=== PATIENT | female | born 1940 | race Caucasian/White ===

== ENCOUNTER 2017-04-10 10:36 | Day surgery (SDC) | payer MEDICARE ==
[2017-04-10] MEDS ORDERED: Sodium Chloride 0.9% 20 ML ONE (11:07)
[2017-04-10] MEDS ORDERED: Acetaminophen 325 MG TAB PO SCH (11:15)
[2017-04-10 17:50] VITALS: BP 138/65; TEMP 97.7
== END 2017-04-10 17:50 | disposition home or self-care (01) ==
LOC: ONC/OP 10:36
PROVIDERS: ATTEND Internal Medicine Gastroenterology
PROC: 30233N1 Transfusion of Nonautologous Red Blood Cells into Peripheral Vein, Percutaneous Approach (ICD-10-PCS; principal; 2017-04-10)
DX: D50.9 Iron deficiency anemia, unspecified (principal); I25.10 Atherosclerotic heart disease of native coronary artery without angina pectoris; I10 Essential (primary) hypertension; E11.9 Type 2 diabetes mellitus without complications; I48.91 Unspecified atrial fibrillation; Z88.5 Allergy status to narcotic agent; Z98.890 Other specified postprocedural states
CPT/HCPCS: 36415; 36430; 86850; 86900; 86901; A4216; P9016

== ENCOUNTER 2017-04-15 08:38 | Day surgery (SDC) | payer MEDICARE ==
[2017-04-14 12:10] VITALS: BMI 34.3
[2017-04-15 10:24] LABS: #Eosinphils 0.1 thou/uL (0.0-0.7); #Lymphocytes 1.6 thou/uL (1.20-3.40); #Monocytes 0.5 thou/uL (0.11-0.59); %Basophils 0.4 % (0.0-1.0); %Eosinophils 2.2 % (0.0-10.0); %Lymphocytes 25.7 % (21.0-51.0); %Monocytes 8.4 % (0.0-10.0); %Neutrophils 63.4 % (42.0-75.0); Hemoglobin 9.3 g/dL (12.0-16.0); Mean Corpuscular HGB CONC 30.5 g/dL (32.0-36.0); Mean Corpuscular Hemoglobin 24.6 pg (27.0-31.0); Mean Corpuscular Volume 80.6 fl (81.0-99.0); Mean Platelet Volume 7.6 fL (7.4-10.4); Platelet Count 279 thou/uL (130-400); RBC Distribution Width 16.8 % (11.5-14.5); Red Blood Cell (RBC) Count 3.79 mill/uL (4.20-5.40); White Blood Cell (WBC) Count 6.3 thou/uL (4.8-10.8)
[2017-04-15] MEDS ORDERED: Fentanyl 100 MCG/2 ML VIAL ONE (10:44)
--- NOTE | 2017-04-15 14:09 | OP ---
DATE OF PROCEDURE: 04/15/2017 SURGEON: Denis Eller M.D. PROCEDURE: Esophagogastroduodenoscopy and colonoscopy. PREOPERATIVE DIAGNOSES: 1. Iron deficiency anemia, severe, requiring transfusion last week. 2. Prior history of iron deficiency anemia with prior history of gastritis, prior history of a sessi le serrated adenoma of the colon 4 years ago. 3. Chronic Xarelto use. 4. Hemoglobin before procedure was 9.6 up from 6 last week. POSTOPERATIVE DIAGNOSES: 1. Mild antral gastritis with erosions. No active bleeding in the antrum of stomach, biopsied. 2. Colonoscopy was normal except for a large part of the colon which was herniated through the left lower quadrant incisional hernia making the examination difficult. ANESTHESIA: TIVA. RECOMMENDATIONS: 1. Iron supplementation daily. 2. Will refer to Dr. Sarah Beth Frazier for IV iron, which she has had in the past. 3. Lifelong PPI therapy. 4. Can resume anticoagulation. 5. Follow up in my office in 3 weeks. 6. Repeat colonoscopy in 5 years with regard to history of previous sessile serrated adenoma. ANESTHESIA: TIVA. PROCEDURE IN DETAIL: After the patient was informed of the risks, benefits, possible complications o f endoscopy including perforation, bleeding, reactions to medication and aspiration, informed consent was obtained. The patient brought to endoscopy suite where she was sedated in gradual fashion. Onc e she was comfortable, a bite block was placed in incisural orifice. The endoscope was advanced thro ugh the esophagus, stomach and to the second and third portion of the duodenum and slowly removed. T he duodenum was normal to second and third portions. The bulb was normal. The antrum was notable fo r 2 erosions in the antrum probably 3-4 mm in size, nonbleeding. Biopsies were taken and submitted t o Pathology. Retroflexed views revealed no proximal stomach ulcers, there was no active bleeding in the stomach. The esophagus and GE junction were normal. The scope was removed. The patient was turned in the room. A rectal examination was performed which revealed no abnormaliti es. The endoscope was advanced through anal canal, through the colon to the cecum which was identifi ed by ileocecal valve and appendiceal orifice. The procedure was complicated by the fact that she muhammad s got a significant amount of left colon and sigmoid herniated through the abdominal wall and this co uld not be reduced. The scope had to be advanced to the hernia sac and then the colon explored throu gh that and the endoscope advanced back in the abdominal cavity. No polyps or lesions were seen on t his examination. There was some diverticulosis coli in left colon. Retroflexed views in the rectum were normal. The scope was removed. The patient tolerated the procedure well with no complications.
[2017-04-15] MEDS ORDERED: Propofol 200 MG/20 ML VIAL ONE (15:20)
[2017-04-15] MEDS ORDERED: Lidocaine 1% PF 5 ML VIAL ONE (15:20)
== END 2017-04-15 13:10 | disposition home or self-care (01) ==
LOC: SDC 08:38
PROVIDERS: ATTEND Internal Medicine Gastroenterology
PROC: 0DJD8ZZ Inspection of Lower Intestinal Tract, Via Natural or Artificial Opening Endoscopic (ICD-10-PCS; principal; 2017-04-15)
PROC: 0DB68ZX Excision of Stomach, Via Natural or Artificial Opening Endoscopic, Diagnostic (ICD-10-PCS; 2017-04-15)
DX: Z12.11 Encounter for screening for malignant neoplasm of colon (principal); K29.50 Unspecified chronic gastritis without bleeding; D50.0 Iron deficiency anemia secondary to blood loss (chronic); K43.2 Incisional hernia without obstruction or gangrene; Z88.5 Allergy status to narcotic agent; Z79.01 Long term (current) use of anticoagulants; Z86.010 Personal history of colon polyps; Z98.890 Other specified postprocedural states
CPT/HCPCS: 43239; 85025; 88305; 88312; G0105; 36415; J2001; J2704; J3010

== ENCOUNTER 2017-07-27 08:42 | Outpatient (CLI) | payer MEDICARE ==
[~2017-07-27 08:42] MED LIST: Iopamidol 370 76% 100 ML VIAL ONE
[2017-07-27 09:46] LABS: Estimated GFR-MDRD - POC Greater than 90
--- NOTE | 2017-07-27 11:17 | CT ---
CORONARY MAPPING FOR ELECTROPHYSIOLOGY STUDY CONTRAST ENHANCED CTA CHEST: Two-D and 3D reconstructed images performed on an independent 3D work station. Images demonstrate coronary artery calcifications. There is calcification of the mitral annulus. No definite evidence of pulmonary parenchymal lesions seen. The thoracic aorta demonstrates no evidence of aneurysms or dissections. No definite evidence of edward ling defect seen in the pulmonary arteries. IMPRESSION: Coronary artery calcifications. POS: JOSE
== END 2017-07-27 08:43 | disposition home or self-care (01) ==
LOC: CT 08:42
PROVIDERS: ATTEND Internal Medicine Cardiovascular Disease
DX: I25.10 Atherosclerotic heart disease of native coronary artery without angina pectoris (principal); I48.1 Persistent atrial fibrillation
CPT/HCPCS: 71275; 82565

== ENCOUNTER 2017-09-24 10:55 | Outpatient (CLI) | payer MEDICARE ==
[2017-09-24 12:31] LABS: Hemoglobin 11.1 g/dL (12.0-16.0); Mean Corpuscular HGB CONC 33.9 g/dL (32.0-36.0); Mean Corpuscular Hemoglobin 31.9 pg (27.0-31.0); Mean Corpuscular Volume 94.2 fL (78.0-98.0); Mean Platelet Volume 6.8 fL (7.4-10.4); Platelet Count 244 thou/uL (130-400); RBC Distribution Width 18.4 % (11.5-14.5); Red Blood Cell (RBC) Count 3.47 mill/uL (4.20-5.40); White Blood Cell (WBC) Count 6.2 thou/uL (4.8-10.8)
[2017-09-24 12:48] LABS: INR-International Normal Ratio 1.2; PTT 31.9 SEC (22.9-36.1)
[2017-09-24 12:57] LABS: ALT (SGPT) 12 U/L (8-55); AST (SGOT) 16 U/L (5-34); Albumin 4.1 g/dL (3.4-4.8); Alkaline Phosphatase 57 U/L (40-150); Anion Gap 14 mmol/L (10-20); BUN (Urea Nitrogen) 12 mg/dL (9.8-20.1); Bilirubin, Total 0.4 mg/dL (0.2-1.2); Calc. Creatinine Clearance 0 mL/min (70-130); Calcium 8.9 mg/dL (7.8-10.44); Carbon Dioxide 25 mmol/L (23-31); Chloride 103 mmol/L (98-107); Estimated GFR-MDRD 63; Globulin 3.2 g/dL (2.4-3.5); Glucose 127 mg/dL (83-110); Potassium 3.9 mmol/L (3.5-5.1); Protein, Total 7.3 g/dL (6.0-8.3); Sodium 138 mmol/L (136-145)
== END 2017-09-24 10:56 | disposition home or self-care (01) ==
LOC: LABBT 10:55
PROVIDERS: ATTEND Internal Medicine Cardiovascular Disease
DX: Z01.818 Encounter for other preprocedural examination (principal); R06.02 Shortness of breath
CPT/HCPCS: 80053; 85027; 85610; 85730; 93005; 93010

== ENCOUNTER → 2017-09-28 | Day surgery (SDC) | payer MEDICARE ==
[2017-09-24 11:10] VITALS: BMI 33.6
[~2017-09-28] MED LIST changes: +Diazepam 5 MG TAB ONE; +Lidocaine 1% (PF) 30 ML VIAL ONE; +traMADol HCl 50 MG TAB ONE
[2017-09-28 06:55] LABS: Cardiac Risk 4.7 (Less than 4.5)
== END ==
LOC: CCL 05:52
PROVIDERS: ATTEND Internal Medicine Cardiovascular Disease
PROC: 4A023N7 Measurement of Cardiac Sampling and Pressure, Left Heart, Percutaneous Approach (ICD-10-PCS; principal; 2017-09-28)
PROC: B2111ZZ Fluoroscopy of Multiple Coronary Arteries using Low Osmolar Contrast (ICD-10-PCS; 2017-09-28)
DX: I25.10 Atherosclerotic heart disease of native coronary artery without angina pectoris (principal); I48.91 Unspecified atrial fibrillation; E11.9 Type 2 diabetes mellitus without complications; I48.92 Unspecified atrial flutter; Z79.84 Long term (current) use of oral hypoglycemic drugs; Z79.01 Long term (current) use of anticoagulants; Z79.899 Other long term (current) drug therapy; Z88.5 Allergy status to narcotic agent
CPT/HCPCS: 76942; 80061; 82962; 93458; C1769; 36415; 36416; J1644; J2001

== ENCOUNTER 2017-10-04 09:54 | Inpatient (IN) | payer MEDICARE ==
[2017-10-04 10:18] LABS: #Lymphocytes 1.5 thou/uL (1.20-3.40); #Neutrophils 8.3 thou/uL (1.40-6.50); %Eosinophils 0.1 % (0.0-10.0); %Lymphocytes 14.2 % (21.0-51.0); %Monocytes 9.1 % (0.0-10.0); %Neutrophils 76.7 % (42.0-75.0); Hemoglobin 11.6 g/dL (12.0-16.0); Mean Corpuscular HGB CONC 32.9 g/dL (32.0-36.0); Mean Corpuscular Hemoglobin 31.2 pg (27.0-31.0); Mean Corpuscular Volume 94.9 fL (78.0-98.0); Mean Platelet Volume 6.7 fL (7.4-10.4); Platelet Count 244 thou/uL (130-400); Red Blood Cell (RBC) Count 3.73 mill/uL (4.20-5.40); White Blood Cell (WBC) Count 10.9 thou/uL (4.8-10.8)
[2017-10-04 10:34] LABS: INR-International Normal Ratio 1.2; Prothrombin Time 15.3 SEC (12.0-14.7)
[2017-10-04 10:44] LABS: ALT (SGPT) 11 U/L (8-55); AST (SGOT) 28 U/L (5-34); Albumin 3.9 g/dL (3.4-4.8); Alkaline Phosphatase 60 U/L (40-150); Anion Gap 18 mmol/L (10-20); BUN (Urea Nitrogen) 7 mg/dL (9.8-20.1); Bilirubin, Total 0.5 mg/dL (0.2-1.2); Calc. Creatinine Clearance 0 mL/min (70-130); Calcium 9.1 mg/dL (7.8-10.44); Carbon Dioxide 21 mmol/L (23-31); Chloride 99 mmol/L (98-107); Estimated GFR-MDRD 72; Glucose 168 mg/dL (83-110); Potassium 4.6 mmol/L (3.5-5.1); Protein, Total 7.9 g/dL (6.0-8.3); Sodium 133 mmol/L (136-145)
[2017-10-04] MEDS ORDERED: SODIUM CHLORIDE 0.9% IVPB SCH (10:45)
[2017-10-04] MEDS ORDERED: DILTIAZEM IVPB SCH (10:45)
[2017-10-04 10:49] LABS: CKMB 0.5 ng/mL (0-6.6); Troponin I Less than 0.010 ng/mL (< 0.028)
--- NOTE | 2017-10-04 12:21 | RAD ---
PORTABLE AP CHEST XRAY: DATE: 10/04/17. HISTORY: Chest pain. Chills, headache. COMPARISON: 06/27/16. FINDINGS: Cardiac silhouette is magnified by projection and is stable in size. The pulmonary vasculature is wi thin normal limits. There is increased density overlying the left lateral lung base probably related to overlying soft tissue density and atelectasis. The lungs are otherwise clear. Surgical clips ov erlie the right chest and right axillary region similar to the prior study. Vascular calcification i s seen in the thoracic aorta. There has been no interval change from the prior exam. IMPRESSION: Increased density again present left lateral lung base which may be related to scarring given stabili ty since the prior exam. There is otherwise no acute cardiopulmonary process. POS: JOSE
[2017-10-04] MEDS ORDERED: Dextrose 50% Abboject 50 ML SYRINGE SLOW IVP PRN (14:02)
[2017-10-04] MEDS ORDERED: Dextrose 5% in Water 1,000 ML IV PRN (14:02)
[2017-10-04] MEDS ORDERED: traMADol HCl 50 MG TAB PO PRN (14:15)
--- NOTE | 2017-10-04 14:16 | PDOC.EVN ---
Event Note - Event Note Event Note: h&p [id number] dictated
[2017-10-04 14:51] LABS: Hemoglobin A1c 5.3 % (4.0-6.0)
[2017-10-04 15:09] LABS: Troponin I 0.016 ng/mL (< 0.028)
--- NOTE | 2017-10-04 15:57 | HP ---
PRIMARY CARE PHYSICIAN: Dr. Rebeca Puga. TOBACCO WEIGHER: Dr. Loco San. CHIEF COMPLAINT: Headache. HISTORY OF PRESENT ILLNESS: This is a 77-year-old female with a known history of atrial fibrillation , status post ablation on Xarelto, coronary artery disease, hypertension, type 2 diabetes, hypothyroi dism, who presented with a chief complaint of headache. It appears that the patient had an acute onset of headache some point yesterday afternoon, after whic h she sat down in her chair to rest and see if it would go away. Subsequently, the patient apparentl y does not have any recollection of the events later on through the afternoon evening and into the mo rning when she finally woke up. Patient states this is highly atypical for her as she is easily arou sed by loud sounds. Patient had subsequently texted her son and the patient's wgwclfhg-[id number] is cur rently with her at bedside after having brought her into the Emergency Department. Both the patient and her [id number] currently indicate that her mental status is grossly at her baseline. The pa bryan is endorsing a degree of word finding difficulty that she says is not different from her baseli ne and this is supported by the patient's cdulgylh-ri-bzf at bedside as well. REVIEW OF SYSTEMS: As per HPI, CONSTITUTIONAL: The patient thought that she may have had a fever earlier today, but upon checking h er temperature at home, did not have a fever. No overt chills. No significant weight loss or gain o clarissa the last few months. HEENT: The patient describes yesterday evening through this morning having a headache, which is desc ribed as a heavy dull pressure on the top of her head. At the time of my evaluation, this headache i s currently resolved. Denies any accompanying dizziness, lightheadedness, or vision changes. CARDIOVASCULAR: Denies any chest pain, chest pressure. The patient has been having shortness of ave ath over the last several weeks, for which she underwent a left heart catheterization that approximat chiquis a week ago without any stent placement noted. Patient denies any sensation of palpitations and t he patient states that she has never had any sensation of palpitations even when she was told that he r heart rate was actively elevated. RESPIRATORY: Denies any recent upper respiratory infection. Denies any issues with congestion, coug h. GASTROINTESTINAL: Denies any nausea, vomiting, abdominal pain, diarrhea, or constipation. The patie nt recalls her last meal as perhaps yesterday for lunch before onset of the headache. MUSCULOSKELETAL: Denies any new myalgias or arthralgias. Does have some chronic bilateral lower ext remity swelling, which she states is not different from her usual. Remainder of review of systems is otherwise negative. PAST MEDICAL HISTORY: As per above, 1. Type 2 diabetes. 2. Hypertension. 3. Atrial fibrillation. 4. Chronic bilateral lower extremity edema. 5. Prior history of atrial flutter. PAST SURGICAL HISTORY: 1. Status post right mastectomy with breast reduction. 2. Status post carpal tunnel release. 3. Status post hernia repair. 4. Status post cataract extraction. 5. Status post Watchman procedure on 04/2017. FAMILY HISTORY: Denies any family history of palpitations, atrial fibrillation or thyroid disease. HOME MEDICATIONS: Please see the EMR for full details. The patient currently has an unconfirmed lis t in place. The patient states that medication was changed after her left heart catheterization, but she does not recall what medication that was. The patient's current unconfirmed regimen list includ es the following, quinine sulfate 324 mg p.o. at bedtime, metformin 2000 mg p.o. at bedtime, timolol 1 drop each eye b.i.d., rivaroxaban 20 mg p.o. at bedtime, propafenone 325 mg p.o. b.i.d., polyethyle ne glycol 17 grams p.o. daily, oxybutynin 5 mg p.o. at bedtime, omeprazole 1 tab p.o. daily; unknown strength, multivitamin 1 tab p.o. daily, metoprolol succinate 100 mg p.o. at bedtime, Levothyroxine 1 12 mcg p.o. daily, icosapent 2 tabs p.o. b.i.d., glimepiride 4 mg p.o. b.i.d., Dorzolamide HCL/timolo l eye drop b.i.d. each eye, cyanocobalamin 1000 mcg p.o. daily, and acetaminophen 1000 mg p.o. q.6 ho urs p.r.n. ALLERGIES: Include CODEINE, which causes nausea and vomiting. PHYSICAL EXAMINATION: GENERAL: The patient is awake, alert, appropriate, lying in the hospital bed. She is conversant and appears to be a reasonable historian, although she is having some word finding difficulty. She has reasonable recall of her own past medical history. HEENT: Normocephalic, atraumatic. Equal ocular motions are intact and moist mucous membranes. CARDIOVASCULAR: S1 and S2, regular and tachycardic. Pulses 2+ bilateral upper extremities, 1+ bilat eral pitting pedal edema. RESPIRATORY: Reasonable air movement. No conversational dyspnea. No wheezes, no rales, no rhonchi. Clear to auscultation bilaterally, otherwise. ABDOMEN: Large, positive bowel sounds, soft, grossly nontender to palpation. MUSCULOSKELETAL: Moving all 4 extremities independently. LABORATORY DATA AND IMAGING: On 10/04/2017, chest x-ray impression "increased density again present left lateral lung base which may be related to scarring given stability since the prior exam." There is otherwise no acute cardiopulmonary process. Chest x-ray was seen and evaluated by myself and Dontrell espinoza with the read. WBC is 10.9, hemoglobin 11.6, hematocrit 35.4, platelets 244. PT 15.3, INR 1.2. Sodium 133, potassi um 4.6, chloride 99, bicarbonate 21, BUN 7, creatinine 0.78, glucose 168, calcium 9.1, total bilirubi n 0.5, AST 28, ALT 11, alkaline phosphatase 60. Troponin initial less than 0.1. BNP natriuretic pep tide 318.7, total protein 7.9, albumin 3.9. ASSESSMENT AND PLAN: This is a 77-year-old female initially presented with a chief complaint of head ache. 1. Headache. Patient's headache is currently resolved. It is unclear the precipitating etiology. The patient does not give a known history of recurrent headaches. We will continue to symptomaticall y manage and closely monitor the patient's neurological status. 2. Atrial fibrillation with rapid ventricular response [facility] The patient is on a multitude of antiarrhythmic agents for known history of this as well. We britt l consult the patient's alcohol law enforcement agent, given the complexity of her dysrhythmia. The patient is alread y on Xarelto, continue the medication. The patient was started on diltiazem bolus in the Emergency D epartment and currently on a drip. We will also check the patient's TSH and hemoglobin A1c as well. 3. Coronary artery disease. See discussion above. We will continue medical management as well once the patient's home medications are reconciled. 4. Type 2 diabetes. We will continue the patient on home regimen. We will also check her glucose f ingersticks as well. 5. Diet: Cardiac. 6. Activity: As tolerated. 7. Deep venous thrombosis prophylaxis: The patient is already on Eliquis. The patient's code status was discussed with her and her [id number] at bedside. If the patient is unable to make her own medical decisions, she would like us to contact her son, Justin. The patient endorses being FULL CODE at this point in time.
[2017-10-04 16:59] VITALS: BMI 34.0
[2017-10-04 17:12] LABS: Troponin I 0.015 ng/mL (< 0.028)
[2017-10-04] MEDS: Famotidine/PF 20 mg/2ml Vial SLOW IVP SCH (20:15)
[2017-10-05] MEDS: Diltiazem HCl 125 MG, Admixture Fee 1 EACH in Sodium Chloride 0.9% 100 ML IVPB SCH ×2 (00:36→14:56)
[2017-10-05 05:52] LABS: #Lymphocytes 1.9 thou/uL (1.20-3.40); #Monocytes 1.2 thou/uL (0.11-0.59); #Neutrophils 6.1 thou/uL (1.40-6.50); %Basophils 0.2 % (0.0-1.0); %Eosinophils 0.2 % (0.0-10.0); %Lymphocytes 20.8 % (21.0-51.0); %Monocytes 12.5 % (0.0-10.0); %Neutrophils 66.3 % (42.0-75.0); Hemoglobin 10.5 g/dL (12.0-16.0); Mean Corpuscular Hemoglobin 32.2 pg (27.0-31.0); Mean Corpuscular Volume 94.7 fL (78.0-98.0); Mean Platelet Volume 7.2 fL (7.4-10.4); Platelet Count 221 thou/uL (130-400); RBC Distribution Width 17.8 % (11.5-14.5); Red Blood Cell (RBC) Count 3.27 mill/uL (4.20-5.40); White Blood Cell (WBC) Count 9.3 thou/uL (4.8-10.8)
[2017-10-05 05:55] LABS: Anion Gap 13 mmol/L (10-20); BUN (Urea Nitrogen) 7 mg/dL (9.8-20.1); Calc. Creatinine Clearance 254 mL/min (70-130); Calcium 8.6 mg/dL (7.8-10.44); Carbon Dioxide 25 mmol/L (23-31); Chloride 101 mmol/L (98-107); Estimated GFR-MDRD 88; Glucose 149 mg/dL (83-110); Potassium 3.7 mmol/L (3.5-5.1); Sodium 135 mmol/L (136-145)
[2017-10-05] MEDS ORDERED: PROPOFOL 0 ML ONE (12:51)
[2017-10-05] MEDS: Famotidine/PF 20 mg/2ml Vial SLOW IVP SCH ×2 (13:52→20:57)
--- NOTE | 2017-10-05 14:37 | CON ---
DATE OF CONSULTATION: 10/05/2017 ELECTROPHYSIOLOGY CONSULTATION REPORT PHYSICIAN: Dr. San HISTORY OF PRESENT ILLNESS: I am seeing Ms. Chaney at our [facility] as a electrophysiology consult and her problems are: 1. Recurrent atrial arrhythmias. A. History of cavotricuspid isthmus ablation by Dr. Thorpe on 11/14/2015. B. ____ cardioversion on propafenone for sinus rhythm maintenance in 02/2016. C. Hence detected coronary artery disease on left heart catheterization in 09/27/2017, patient was s witched to Multaq, now with recurrence. 2. Severe anemia and GI bleed requiring transfusion in the past, prompting a Watchman device placeme nt on 08/28/2017. 3. Coronary risk factors including hyperlipidemia, hypertension, type 2 diabetes, elevated BMI. 4. Hypothyroidism, replacement. 5. History of breast cancer status post reduction and reconstruction surgeries. ALLERGIES: CODEINE. MEDICATIONS AT HOME: Included oxybutynin, levothyroxine, metformin, metoprolol succinate, glimepirid e, rivaroxaban, ezetimibe and dronedarone 400 mg twice a day. SUBJECTIVE: Ms. Chaney is here with recurrent palpitation. She underwent a Watchman device placemen t about 5 weeks ago in [place] by Dr. Coffey. She has been chronically treated with antiarrhythmic to suppress her atrial fibrillation, but now they appear propafenone was discontinued to detect madison nary artery disease and she is switched to Multaq, but this does not seem to be satisfactory to suppr ess her atrial fibrillation. She was admitted with atrial fibrillation with rapid rates associated w ith dyspnea and shortness of breath for a couple of weeks. She denies angina at this point. She was treated with diltiazem. She has some headaches. Also had some fever, but no other signs of infecti on identified. REVIEW OF SYSTEMS: Rest of 12-point system otherwise unremarkable with no acute signs of strokes, no new bleeding, no fever, no CHF like symptoms. No major abdominal discomfort. PAST MEDICAL HISTORY: As above. SOCIAL HISTORY: Patient denies smoking, ETOH or drug abuse. FAMILY HISTORY: Significant for palpitations, atrial fibrillation, thyroid disease. PAST SURGICAL HISTORY: Significant for right mastectomy and breast reduction, carpal tunnel release, hernia repair, cataract extraction, Watchman procedure in 04/2017. OBJECTIVE DATA: VITAL SIGNS: Blood pressure is initially 113/59, heart rate 103, respiration 16, temperature 99.9 de grees Fahrenheit. GENERAL: She is alert and oriented woman with elevated BMI, in no apparent distress. NECK: Supple. Jugular veins not distended. CHEST: Coarse without major crackles. CARDIAC: Heart sounds are irregularly irregular. S1, S2, variable. No murmur or gallop. ABDOMEN: Benign. Bowel sounds positive. EXTREMITIES: Lower extremities without edema, clubbing or cyanosis. DATABASE: The EKGs reviewed revealing atrial fibrillation, ____ QRS. LABORATORY DATA: White count 9.3 today, hemoglobin 10.5, platelet count is 221. INR 1.2. Sodium 13 5, potassium 3.7, BUN 7, creatinine 0.65. The troponins are negative, 0.016 and 0.015 consecutively. ASSESSMENT AND PLAN: Ms. Chaney is a pleasant 77-year-old woman with history of atrial arrhythmias. She did have cavotricuspid isthmus ablation a number of years ago, but had recurrent atrial arrhythm ia, which were mostly satisfactory suppressed with oral antiarrhythmic agents, propafenone initially. She had to be switched to Multaq due to her significant coronary artery disease this September, but is n ot satisfactory at this time to suppress her atrial fibrillation. Her rates are moderately controlle d only. Also, complicating issues the recent Watchman device placement for which she is still in the initial phase of Xarelto for anticoagulation. Our plan is at this point: 1. I think it will be reasonable to repeat a JENNIFER, anyway schedule within a week. If the Watchman de vice seating is adequate, she could be considered cardioverted times as she is after a month of the W atchman device placement. If she maintains rhythm on Multaq, this could be reasonable to continue on this drug. Alternatives to that would be though sotalol versus amiodarone. Also, she could be considered for a pulmonary venous isolation procedure as an outpatient after matur ation of her Watchman device. In the meantime, rhythm or rate control will be pursued as above. I discussed the JENNIFER guided cardioversion procedure with her. She understands she is willing to proce ed. We will schedule her for near date. Discussed with Dr. San. Thank you again for allowing me to participate in the care of this patient.
--- NOTE | 2017-10-05 14:38 | OP ---
PROCEDURE: Synchronized cardioversion. Patient was consented for the procedure. Please see a previous note. Propofol was used for conscious sedation. Unsuccessful synchronized cardioversion was performed at 1 50, 200, 250, and 300 joules. IMPRESSION: Unsuccessful synchronized cardioversion.
[2017-10-05] MEDS ORDERED: PROPOFOL 200 MG/20 ML VIAL ONE (14:52)
[2017-10-05] MEDS ORDERED: Sodium Chloride 0.9% 1,000 ML IV SCH (15:30)
--- NOTE | 2017-10-05 18:13 | PDOC.PN ---
- Subjective Encounter Start Date: 10/05/17 Encounter Start Time: 18:11 Subjective: nsg notes rev, crystal ovn, pt had failed cardioversions earlier today - Objective I&O: 10/04/17 10/05/17 10/06/17 06:59 06:59 06:59 Intake Total 510 Balance 510 Result Diagrams: 10/05/17 05:19 10/05/17 05:19 Additional Labs: Accuchecks 10/05/17 16:46 POC Glucose 151 H Phys Exam - Physical Examination Constitutional: NAD lying in hospital bed HEENT: moist MMs, sclera anicteric Respiratory: no wheezing, no rales, no rhonchi, clear to auscultation bilateral Cardiovascular: RRR, no significant murmur, no rub Gastrointestinal: soft, non-tender, positive bowel sounds Dx/Plan - Plan 1. Headache. Patient's headache is currently resolved. Continue to monitor. Patient thinks it may be related to her multaq 2. Atrial fibrillation with rapid ventricular response. Apprec cardiology c/s. Continue dilt gtt. 3. Coronary artery disease. Medical management. Hemodynamically stable. 4. Type 2 diabetes. We will continue the patient on home regimen. We will also check her glucose fingersticks as well. 5. Diet: Cardiac. 6. Activity: As tolerated. 7. Deep venous thrombosis prophylaxis: The patient is already on Eliquis. Review of Systems - Medications/Allergies Allergies/Adverse Reactions: Allergies Allergy/AdvReac Type Severity Reaction Status Date / Time codeine AdvReac Severe NAUSEA/VOMI Verified 09/24/17 11:21 TING Medications: Current Medications Acetaminophen (Tylenol) 650 mg PO Q4H PRN PRN Reason: Headache/Fever or Mild Pain Dextrose/Water (Dextrose 50%) 25 gm SLOW IVP PRN PRN PRN Reason: Hypoglycemia Ezetimibe (Zetia) 10 mg PO DAILY FARIDA Famotidine (Pepcid) 20 mg SLOW IVP Q12HR [facility] Last Admin: 10/05/17 13:52 Dose: Not Given Glucagon (Glucagon) 1 mg IM PRN PRN PRN Reason: Hypoglycemia Diltiazem HCl 125 mg/Miscellaneous Medication 1 each/ Sodium Chloride 125 mls @ 10 mls/hr IVPB INF FARIDA PRN Reason: Protocol Last Admin: 10/05/17 14:56 Dose: 125 mls Dextrose/Water (D5w) 1,000 mls @ 0 mls/hr IV .Q0M PRN; As Directed PRN Reason: Hypoglycemia Sodium Chloride (Normal Saline 0.9%) 1,000 mls @ 100 mls/hr IV .Q10H FARIDA Stop: 10/05/17 19:30 Last Admin: 10/05/17 15:49 Dose: 1,000 mls Insulin Human Regular (Humulin R) 0 units SC .MODERATE SLIDING SC PRN PRN Reason: Moderate Correctional Scale Levothyroxine Sodium (Synthroid) 125 mcg PO 0600 FARIDA Oxybutynin Chloride (Ditropan) 5 mg PO HS FARIDA Tramadol HCl (Ultram) 50 mg PO Q4H PRN PRN Reason: Moderate Pain (4-6)
[2017-10-05] MEDS: Rivaroxaban 10 MG TAB PO SCH (20:57)
[2017-10-05] MEDS: Oxybutynin 5 MG TAB PO SCH (20:57)
[2017-10-05] MEDS: Acetaminophen 325 MG TAB PO PRN (22:44)
[2017-10-06] MEDS: Diltiazem HCl 125 MG, Admixture Fee 1 EACH in Sodium Chloride 0.9% 100 ML IVPB SCH ×2 (03:14→16:37)
[2017-10-06] MEDS: Levothyroxine Sodium 125 MCG TAB PO SCH (03:26)
[2017-10-06 06:26] LABS: #Eosinphils 0.1 thou/uL (0.0-0.7); #Lymphocytes 1.5 thou/uL (1.20-3.40); #Monocytes 0.6 thou/uL (0.11-0.59); #Neutrophils 4.4 thou/uL (1.40-6.50); %Basophils 0.7 % (0.0-1.0); %Eosinophils 1.3 % (0.0-10.0); %Monocytes 8.9 % (0.0-10.0); %Neutrophils 66.1 % (42.0-75.0); Hemoglobin 12.4 g/dL (12.0-16.0); Mean Corpuscular HGB CONC 32.2 g/dL (32.0-36.0); Mean Corpuscular Hemoglobin 30.5 pg (27.0-31.0); Mean Corpuscular Volume 94.5 fL (78.0-98.0); Platelet Count 247 thou/uL (130-400); RBC Distribution Width 17.6 % (11.5-14.5); Red Blood Cell (RBC) Count 4.08 mill/uL (4.20-5.40); White Blood Cell (WBC) Count 6.7 thou/uL (4.8-10.8)
[2017-10-06 06:42] LABS: Anion Gap 13 mmol/L (10-20); BUN (Urea Nitrogen) 6 mg/dL (9.8-20.1); Calc. Creatinine Clearance 117 mL/min (70-130); Carbon Dioxide 27 mmol/L (23-31); Chloride 102 mmol/L (98-107); Estimated GFR-MDRD 90; Glucose 158 mg/dL (83-110); Potassium 3.3 mmol/L (3.5-5.1); Sodium 139 mmol/L (136-145)
[2017-10-06] MEDS: Insulin Regular 300 UNITS/3 ML VIAL SC PRN (06:43)
--- NOTE | 2017-10-06 07:37 | ECHO ---
CARDIOLOGY PROCEDURE NOTE: Date: 10/05/17 PREPROCEDURE DIAGNOSIS: Atrial fibrillation. POSTPROCEDURE DIAGNOSIS: Atrial fibrillation. PROCEDURE: JENNIFER and failed synchronized cardioversion. DESCRIPTION OF PROCEDURE: The patient was consented for the procedure. Prior to the procedure, I met with Ms. Chaney while in her room and we discussed JENNIFER with cardioversion. The risks include, but are not limited, damage to teeth, mouth, back of the throat, damage to esophagus requiring emergent surgery, and reaction to med ication. Risks of cardioversion include burning of skin, temporary cardioversion and need for repeat cardioversion in addition to a stroke. All questions were answered. Given the above, the patient agre ed to the above procedure. A JENNIFER was performed. The probe was placed in the esophagus successfully. FINDINGS: Watchman device had been placed 2 months prior. Watchman device was well visualized. There was no f low present noted into the left atrial appendage. IMPRESSION: Successful Watchman placement.
[2017-10-06] MEDS: Ezetimibe 10 MG TAB PO SCH (09:13)
[2017-10-06] MEDS: Famotidine/PF 20 mg/2ml Vial SLOW IVP SCH ×2 (09:18→21:34)
--- NOTE | 2017-10-06 14:13 | PDOC.PN ---
- Subjective Encounter Start Date: 10/06/17 Encounter Start Time: 07:20 - Objective MAR Reviewed: Yes Vital Signs & Weight: Vital Signs (12 hours) Temp Pulse Resp BP Pulse Ox 10/06/17 11:45 97.3 F L 60 18 140/64 97 10/06/17 07:55 98.1 F 76 18 10/06/17 07:49 98.1 F 76 18 104/55 L 95 10/06/17 03:15 97.9 F 78 18 131/63 94 L I&O: 10/05/17 10/06/17 10/07/17 06:59 06:59 06:59 Intake Total 1130 360 Output Total 1375 Balance -245 360 Result Diagrams: 10/06/17 05:45 10/06/17 05:45 Additional Labs: Accuchecks 10/06/17 10/06/17 10/05/17 10:55 06:21 20:42 POC Glucose 149 H 160 H 153 H 10/05/17 16:46 POC Glucose 151 H EKG Reviewed by me: Yes (Tele: afib with RVR) Phys Exam - Physical Examination Constitutional: NAD HEENT: moist MMs, sclera anicteric, oral pharynx no lesions, 2+ tonsils Neck: no nodes, no JVD, supple, full ROM Respiratory: no wheezing, no rales, no rhonchi, clear to auscultation bilateral Cardiovascular: no rub, irregular S1, S2 Gastrointestinal: soft, non-tender, no distention, positive bowel sounds Neurological: moves all 4 limbs Psychiatric: normal affect, A&O x 3 Dx/Plan (1) Atrial fibrillation with RVR Code(s): I48.91 - UNSPECIFIED ATRIAL FIBRILLATION Status: Acute Comment: on Cardizem drip, rate is controlled now (2) CAD (coronary artery disease) Code(s): I25.10 - ATHSCL HEART DISEASE OF [place] CORONARY ARTERY W/O ANG PCTRS Status: Chronic Qualifiers: Coronary Disease-Associated Artery/Lesion type: [place] artery [place] vs. transplanted heart: [place] heart Associated angina: without angina Qualified Code(s): I25.10 - Atherosclerotic heart disease of [place] coronary artery without angina pectoris Comment: stable (3) DM type 2 (diabetes mellitus, type 2) Status: Chronic Qualifiers: Diabetes mellitus skilled nursing insulin use: without oil heaterman use Diabetes mellitus complication status: with unspecified complications Qualified Code(s) : E11.8 - Type 2 diabetes mellitus with unspecified complications Comment: continue accuchecks, insulin sliding scale (4) HTN (hypertension) Code(s): I10 - ESSENTIAL (PRIMARY) HYPERTENSION Status: Chronic Qualifiers: Hypertension type: essential hypertension Qualified Code(s): I10 - Essential (primary) hypertension Comment: controlled - Plan DVT proph w/SCDs * . Review of Systems - Review of Systems Constitutional: negative: fever, chills, sweats, weakness, malaise Respiratory: negative: Cough, Shortness of Breath, SOB with Excertion, Pleuritic Pain, Wheezing Cardiovascular: negative: chest pain, palpitations, orthopnea, paroxysmal nocturnal dyspnea, edema, light headedness Gastrointestinal: negative: Nausea, Vomiting, Abdominal Pain, Diarrhea, Constipation, Melena, Hematochezia Genitourinary: negative: Dysuria, Frequency, Incontinence, Hematuria, Retention Skin: negative: Rash, Lesions, [place], Bruising - Medications/Allergies Allergies/Adverse Reactions: Allergies Allergy/AdvReac Type Severity Reaction Status Date / Time codeine AdvReac Severe NAUSEA/VOMI Verified 09/24/17 11:21 TING Medications: Current Medications Acetaminophen (Tylenol) 650 mg PO Q4H PRN PRN Reason: Headache/Fever or Mild Pain Last Admin: 10/05/17 22:44 Dose: 650 mg Dextrose/Water (Dextrose 50%) 25 gm SLOW IVP PRN PRN PRN Reason: Hypoglycemia Ezetimibe (Zetia) 10 mg PO DAILY [facility] Last Admin: 10/06/17 09:13 Dose: 10 mg Famotidine (Pepcid) 20 mg SLOW IVP Q12HR [facility] Last Admin: 10/06/17 09:18 Dose: Not Given Glucagon (Glucagon) 1 mg IM PRN PRN PRN Reason: Hypoglycemia Diltiazem HCl 125 mg/Miscellaneous Medication 1 each/ Sodium Chloride 125 mls @ 10 mls/hr IVPB INF [facility] PRN Reason: Protocol Last Admin: 10/06/17 03:14 Dose: 125 mls Dextrose/Water (D5w) 1,000 mls @ 0 mls/hr IV .Q0M PRN; As Directed PRN Reason: Hypoglycemia Insulin Human Regular (Humulin R) 0 units SC .MODERATE SLIDING SC PRN PRN Reason: Moderate Correctional Scale Last Admin: 10/06/17 06:43 Dose: 2 unit Levothyroxine Sodium (Synthroid) 125 mcg PO 0600 [facility] Last Admin: 10/06/17 03:26 Dose: 125 mcg Oxybutynin Chloride (Ditropan) 5 mg PO HS [facility] Last Admin: 10/05/17 20:57 Dose: 5 mg Rivaroxaban (Xarelto) 20 mg PO HS [facility] Last Admin: 10/05/17 20:57 Dose: 20 mg Sodium Chloride (Flush - Normal Saline) 10 ml IVF Q12HR [facility] Last Admin: 10/06/17 09:15 Dose: 10 ml Sodium Chloride (Flush - Normal Saline) 10 ml IVF PRN PRN PRN Reason: Saline Flush Tramadol HCl (Ultram) 50 mg PO Q4H PRN PRN Reason: Moderate Pain (4-6)
[2017-10-06] MEDS: Acetaminophen 325 MG TAB PO PRN (17:50)
[2017-10-06] MEDS: Oxybutynin 5 MG TAB PO SCH (21:34)
[2017-10-06] MEDS: Rivaroxaban 10 MG TAB PO SCH (21:34)
[2017-10-06] MEDS: Sotalol HCl 80 MG TAB PO SCH (21:34)
--- NOTE | 2017-10-06 22:32 | PRG ---
DATE OF SERVICE: 10/06/2017 ELECTROPHYSIOLOGY FOLLOWUP NOTE SUBJECTIVE: Ms. Chaney seems to be doing better today. She has no dizziness, loss of consciousness. No chest pains. She had night sweats-like symptoms overnight. OBJECTIVE DATA: VITAL SIGNS: Blood pressure is 146/68, heart rate is 79, respirations 16, temperature 98.2 degrees Fahrenheit. GENERAL: Alert and oriented woman in no apparent distress. NECK: Supple. Jugular veins are not distended. CHEST: Coarse without crackles. CARDIOVASCULAR: Heart sounds are irregularly irregular. S1, S2 variable. No murmur or gallop. ABDOMEN: Benign. Bowel sounds are positive. EXTREMITIES: Lower extremity without edema, clubbing, or cyanosis. DATABASE: Telemetry strips reveal atrial fibrillation, occasional recurrent quaker of sinus rhythm is noted with frequent PACs. ASSESSMENT: Ms. Chaney is a 77-year-old woman with history of cavotricuspid isthmus ablation in the past and has had recurrent atrial fibrillation, originally well controlled with propafenone, but eventually had to be stopped due to significant coronary artery disease detected by a recent left heart catheterization. Multaq is not controlling her rhythm. At this point, she is intermittently in and out of atrial fibrillation. She had a Watchman procedure in the past and hence not requiring extensive anticoagulation. The device was checked by JENNIFER this admission and adequate seating was found. PLAN: Our plan at this point, I will initiate sotalol on her to see if we can maintain sinus rhythm. Diltiazem tapered off as possible. Monitor for pro- arrhythmias for the next 2 days. MTDD
[2017-10-07 05:27] LABS: #Eosinphils 0.1 thou/uL (0.0-0.7); #Lymphocytes 1.1 thou/uL (1.20-3.40); #Monocytes 0.7 thou/uL (0.11-0.59); #Neutrophils 4.6 thou/uL (1.40-6.50); %Basophils 0.1 % (0.0-1.0); %Eosinophils 1.5 % (0.0-10.0); %Lymphocytes 16.7 % (21.0-51.0); %Monocytes 11.3 % (0.0-10.0); %Neutrophils 70.4 % (42.0-75.0); Mean Corpuscular Hemoglobin 31.9 pg (27.0-31.0); Mean Corpuscular Volume 93.8 fL (78.0-98.0); Mean Platelet Volume 6.9 fL (7.4-10.4); Platelet Count 255 thou/uL (130-400); RBC Distribution Width 17.5 % (11.5-14.5); Red Blood Cell (RBC) Count 3.45 mill/uL (4.20-5.40); White Blood Cell (WBC) Count 6.5 thou/uL (4.8-10.8)
[2017-10-07 05:34] LABS: Anion Gap 15 mmol/L (10-20); BUN (Urea Nitrogen) 5 mg/dL (9.8-20.1); Calc. Creatinine Clearance 117 mL/min (70-130); Calcium 8.2 mg/dL (7.8-10.44); Carbon Dioxide 22 mmol/L (23-31); Chloride 102 mmol/L (98-107); Estimated GFR-MDRD 90; Glucose 155 mg/dL (83-110); Potassium 3.3 mmol/L (3.5-5.1); Sodium 136 mmol/L (136-145)
[2017-10-07] MEDS: Levothyroxine Sodium 125 MCG TAB PO SCH (06:33)
[2017-10-07] MEDS: Insulin Regular 300 UNITS/3 ML VIAL SC PRN (06:39)
[2017-10-07] MEDS ORDERED: Potassium Chloride 20 MEQ TAB PO SCH (08:00)
[2017-10-07] MEDS: Sotalol HCl 80 MG TAB PO SCH ×2 (08:13→21:45)
[2017-10-07] MEDS: Ezetimibe 10 MG TAB PO SCH (08:13)
[2017-10-07] MEDS: Famotidine/PF 20 mg/2ml Vial SLOW IVP SCH (08:15)
[2017-10-07] MEDS ORDERED: Sotalol HCl 80 MG TAB PO SCH ×2 (09:01→09:15)
--- NOTE | 2017-10-07 09:17 | PRG ---
DATE OF SERVICE: 10/07/2017 ELECTROPHYSIOLOGY NOTE SUBJECTIVE: The patient seems to be doing better with more sinus rhythm on her monitor. She denies dizziness, loss of consciousness. No stroke-like symptoms. OBJECTIVE: VITAL SIGNS: Blood pressure is 117/57, heart rate 57, respiration 16, temperature 98.6 degrees F[place]re nheit. GENERAL: Alert and oriented woman with elevated BMI. NECK: Supple. Jugular veins not distended. CHEST: Coarse without crackles. CARDIOVASCULAR: Heart sounds are regular to rate and rhythm. No murmur or gallop. ABDOMEN: Benign. Bowel sounds positive. EXTREMITIES: Lower extremities without edema, clubbing or cyanosis. DATABASE: The telemetry strips reveal predominantly sinus rhythm, occasional PACs, short atrial fibr illation episodes are still noted. The EKG today reveals sinus rhythm, rate of 57 beats per minute. QTC is 511 milliseconds prolonged. ASSESSMENT AND PLAN: Ms. Chaney is a pleasant 77-year-old woman with history of paroxysmal atrial ar rhythmias. She has been maintained on Multaq, which was stopped on the . We were attempted to c ardiovert her, but was not successful. We are switching her to sotalol. She is being monitored in health system for the next 2 days while transitioning. QTC is prolonged today. I am going to decrease her sotalol to 80 mg twice a day dose. 1. Status post Watchman device placement with adequate seating as per JENNIFER this admission. For now, we will complete the rivaroxaban 6 weeks after her Watchman device placement and then switch her to a spirin and Plavix. 2. We will consider long-term ablation therapy after maturation of her Watchman device.
--- NOTE | 2017-10-07 13:55 | PDOC.PN ---
- Subjective Encounter Start Date: 10/07/17 Encounter Start Time: 07:20 Pt seen for followup re: atrial fibrillation. Denies chest pain, shortness of breath, fevers or chills. - Objective MAR Reviewed: Yes Vital Signs & Weight: Vital Signs (12 hours) Temp Pulse Resp BP Pulse Ox 10/07/17 11:43 97.6 F 55 L 16 108/55 L 97 10/07/17 09:20 57 L 10/07/17 08:13 57 L 10/07/17 08:10 98.6 F 57 L 16 95 10/07/17 07:46 98.6 F 57 L 16 117/57 L 95 10/07/17 04:35 98.4 F 61 16 140/60 93 L I&O: 10/06/17 10/07/17 10/08/17 06:59 06:59 06:59 Intake Total 1130 720 Output Total 1375 1000 Balance -245 -280 Result Diagrams: 10/07/17 04:56 10/07/17 04:56 Additional Labs: Accuchecks 10/07/17 10/07/17 10/06/17 10:44 06:33 20:38 POC Glucose 159 H 157 H 181 H 10/06/17 16:32 POC Glucose 157 H EKG Reviewed by me: Yes (Tele: NSR) Phys Exam - Physical Examination Constitutional: NAD HEENT: moist MMs Neck: supple Respiratory: clear to auscultation bilateral Cardiovascular: RRR Gastrointestinal: soft Neurological: moves all 4 limbs Psychiatric: normal affect Dx/Plan (1) Atrial fibrillation with RVR Code(s): I48.91 - UNSPECIFIED ATRIAL FIBRILLATION Status: Acute Comment: Pt was started on sotalol, converted to NSR overnight. Continue to monitor. (2) CAD (coronary artery disease) Code(s): I25.10 - ATHSCL HEART DISEASE OF [place] CORONARY ARTERY W/O ANG PCTRS Status: Chronic Qualifiers: Coronary Disease-Associated Artery/Lesion type: [place] artery [place] vs. transplanted heart: [place] heart Associated angina: without angina Qualified Code(s): I25.10 - Atherosclerotic heart disease of [place] coronary artery without angina pectoris Comment: stable (3) DM type 2 (diabetes mellitus, type 2) Status: Chronic Qualifiers: Diabetes mellitus superintendent terminal insulin use: without assisted use Diabetes mellitus complication status: with unspecified complications Qualified Code(s) : E11.8 - Type 2 diabetes mellitus with unspecified complications Comment: on accuchecks, insulin sliding scale (4) HTN (hypertension) Code(s): I10 - ESSENTIAL (PRIMARY) HYPERTENSION Status: Chronic Qualifiers: Hypertension type: essential hypertension Qualified Code(s): I10 - Essential (primary) hypertension Comment: controlled - Plan * . Review of Systems - Medications/Allergies Allergies/Adverse Reactions: Allergies Allergy/AdvReac Type Severity Reaction Status Date / Time codeine AdvReac Severe NAUSEA/VOMI Verified 09/24/17 11:21 TING Medications: Current Medications Acetaminophen (Tylenol) 650 mg PO Q4H PRN PRN Reason: Headache/Fever or Mild Pain Last Admin: 10/06/17 17:50 Dose: 650 mg Dextrose/Water (Dextrose 50%) 25 gm SLOW IVP PRN PRN PRN Reason: Hypoglycemia Ezetimibe (Zetia) 10 mg PO DAILY COUNTS [facility]S AT [facility] Last Admin: 10/07/17 08:13 Dose: 10 mg Famotidine (Pepcid) 20 mg PO Q12HR COUNTS INCLUDE 234 BEDS AT THE [facility] Glucagon (Glucagon) 1 mg IM PRN PRN PRN Reason: Hypoglycemia Diltiazem HCl 125 mg/Miscellaneous Medication 1 each/ Sodium Chloride 125 mls @ 10 mls/hr IVPB INF [facility] PRN Reason: Protocol Last Admin: 10/06/17 16:37 Dose: 125 mls Dextrose/Water (D5w) 1,000 mls @ 0 mls/hr IV .Q0M PRN; As Directed PRN Reason: Hypoglycemia Insulin Human Regular (Humulin R) 0 units SC .MODERATE SLIDING SC PRN PRN Reason: Moderate Correctional Scale Last Admin: 10/07/17 06:39 Dose: 2 unit Levothyroxine Sodium (Synthroid) 125 mcg PO 0600 [facility] Last Admin: 10/07/17 06:33 Dose: 125 mcg Oxybutynin Chloride (Ditropan) 5 mg PO HS [facility] Last Admin: 10/06/17 21:34 Dose: 5 mg Rivaroxaban (Xarelto) 20 mg PO HS COUNTS [facility]CLUDE 234 BEDS AT [facility] Last Admin: 10/06/17 21:34 Dose: 20 mg Sodium Chloride (Flush - Normal Saline) 10 ml IVF Q12HR [facility] Last Admin: 10/07/17 08:15 Dose: 10 ml Sodium Chloride (Flush - Normal Saline) 10 ml IVF PRN PRN PRN Reason: Saline Flush Sotalol HCl (Betapace) 80 mg PO BID [facility] Tramadol HCl (Ultram) 50 mg PO Q4H PRN PRN Reason: Moderate Pain (4-6)
[2017-10-07] MEDS: Rivaroxaban 10 MG TAB PO SCH (21:45)
[2017-10-07] MEDS: Famotidine 20 MG TAB PO SCH (21:45)
[2017-10-07] MEDS: Oxybutynin 5 MG TAB PO SCH (21:46)
[2017-10-08] MEDS: Levothyroxine Sodium 125 MCG TAB PO SCH (05:20)
[2017-10-08 06:25] LABS: #Eosinphils 0.1 thou/uL (0.0-0.7); #Lymphocytes 1.4 thou/uL (1.20-3.40); #Monocytes 0.7 thou/uL (0.11-0.59); #Neutrophils 2.4 thou/uL (1.40-6.50); %Basophils 0.8 % (0.0-1.0); %Eosinophils 2.5 % (0.0-10.0); %Lymphocytes 29.7 % (21.0-51.0); %Monocytes 14.8 % (0.0-10.0); %Neutrophils 52.2 % (42.0-75.0); Hemoglobin 11.2 g/dL (12.0-16.0); Mean Corpuscular HGB CONC 32.6 g/dL (32.0-36.0); Mean Corpuscular Volume 95.1 fL (78.0-98.0); Mean Platelet Volume 6.9 fL (7.4-10.4); Platelet Count 272 thou/uL (130-400); RBC Distribution Width 17.5 % (11.5-14.5); Red Blood Cell (RBC) Count 3.61 mill/uL (4.20-5.40); White Blood Cell (WBC) Count 4.7 thou/uL (4.8-10.8)
[2017-10-08 06:42] LABS: Anion Gap 16 mmol/L (10-20); BUN (Urea Nitrogen) 7 mg/dL (9.8-20.1); Calc. Creatinine Clearance 106 mL/min (70-130); Calcium 8.9 mg/dL (7.8-10.44); Carbon Dioxide 21 mmol/L (23-31); Chloride 105 mmol/L (98-107); Estimated GFR-MDRD 80; Glucose 147 mg/dL (83-110); Potassium 3.7 mmol/L (3.5-5.1); Sodium 138 mmol/L (136-145)
[2017-10-08] MEDS: Ezetimibe 10 MG TAB PO SCH (08:49)
[2017-10-08] MEDS: Famotidine 20 MG TAB PO SCH ×2 (08:49→20:52)
[2017-10-08] MEDS: Sotalol HCl 80 MG TAB PO SCH ×2 (08:49→20:51)
--- NOTE | 2017-10-08 14:48 | PDOC.PN ---
- Subjective Encounter Start Date: 10/08/17 Encounter Start Time: 07:40 Pt seen for followup re: atrial fibrillation. Denies any complaints. - Objective MAR Reviewed: Yes Vital Signs & Weight: Vital Signs (12 hours) Temp Pulse Resp BP BP BP Pulse Ox 10/08/17 12:00 98.0 F 54 L 15 133/63 97 10/08/17 08:49 54 L 134/62 10/08/17 08:05 96.9 F L 54 L 14 134/62 98 10/08/17 05:00 98 F 58 L 18 116/57 L 98 Weight Weight 211 lb I&O: 10/07/17 10/08/17 10/09/17 06:59 06:59 06:59 Intake Total 720 480 Output Total 1000 Balance -280 480 Result Diagrams: 10/08/17 05:28 10/08/17 05:28 Additional Labs: Accuchecks 10/08/17 10/08/17 10/07/17 10:34 05:40 20:32 POC Glucose 147 H 137 H 176 H 10/07/17 17:24 POC Glucose 144 H EKG Reviewed by me: Yes (Tele: NSR) Phys Exam - Physical Examination Constitutional: NAD HEENT: moist MMs Neck: supple Respiratory: clear to auscultation bilateral Cardiovascular: RRR Gastrointestinal: soft Neurological: moves all 4 limbs Psychiatric: normal affect Dx/Plan (1) Atrial fibrillation with RVR Code(s): I48.91 - UNSPECIFIED ATRIAL FIBRILLATION Status: Acute Comment: continue sotalol. QTc prolonged, continue to monitor (2) CAD (coronary artery disease) Code(s): I25.10 - ATHSCL HEART DISEASE OF [place] CORONARY ARTERY W/O ANG PCTRS Status: Chronic Qualifiers: Coronary Disease-Associated Artery/Lesion type: [place] artery [place] vs. transplanted heart: [place] heart Associated angina: without angina Qualified Code(s): I25.10 - Atherosclerotic heart disease of [place] coronary artery without angina pectoris Comment: stable (3) DM type 2 (diabetes mellitus, type 2) Status: Chronic Qualifiers: Diabetes mellitus dedicated intermodal truck driver insulin use: without longterm use Diabetes mellitus complication status: with unspecified complications Qualified Code(s) : E11.8 - Type 2 diabetes mellitus with unspecified complications Comment: reasonably controlled (4) HTN (hypertension) Code(s): I10 - ESSENTIAL (PRIMARY) HYPERTENSION Status: Chronic Qualifiers: Hypertension type: essential hypertension Qualified Code(s): I10 - Essential (primary) hypertension Comment: controlled and at goal - Plan * . Review of Systems - Review of Systems Respiratory: negative: Cough, Shortness of Breath, SOB with Excertion, Pleuritic Pain, Wheezing Cardiovascular: negative: chest pain, palpitations, orthopnea, paroxysmal nocturnal dyspnea, edema, light headedness - Medications/Allergies Allergies/Adverse Reactions: Allergies Allergy/AdvReac Type Severity Reaction Status Date / Time codeine AdvReac Severe NAUSEA/VOMI Verified 09/24/17 11:21 TING Medications: Current Medications Acetaminophen (Tylenol) 650 mg PO Q4H PRN PRN Reason: Headache/Fever or Mild Pain Last Admin: 10/06/17 17:50 Dose: 650 mg Dextrose/Water (Dextrose 50%) 25 gm SLOW IVP PRN PRN PRN Reason: Hypoglycemia Ezetimibe (Zetia) 10 mg PO DAILY [facility] Last Admin: 10/08/17 08:49 Dose: 10 mg Famotidine (Pepcid) 20 mg PO Q12HR [facility] Last Admin: 10/08/17 08:49 Dose: 20 mg Glucagon (Glucagon) 1 mg IM PRN PRN PRN Reason: Hypoglycemia Diltiazem HCl 125 mg/Miscellaneous Medication 1 each/ Sodium Chloride 125 mls @ 10 mls/hr IVPB INF [facility] PRN Reason: Protocol Last Admin: 10/06/17 16:37 Dose: 125 mls Dextrose/Water (D5w) 1,000 mls @ 0 mls/hr IV .Q0M PRN; As Directed PRN Reason: Hypoglycemia Insulin Human Regular (Humulin R) 0 units SC .MODERATE SLIDING SC PRN PRN Reason: Moderate Correctional Scale Last Admin: 10/07/17 06:39 Dose: 2 unit Levothyroxine Sodium (Synthroid) 125 mcg PO 0600 [facility] Last Admin: 10/08/17 05:20 Dose: 125 mcg Oxybutynin Chloride (Ditropan) 5 mg PO HS [facility] Last Admin: 10/07/17 21:46 Dose: 5 mg Rivaroxaban (Xarelto) 20 mg PO HS [facility] Last Admin: 10/07/17 21:45 Dose: 20 mg Sodium Chloride (Flush - Normal Saline) 10 ml IVF Q12HR [facility] Last Admin: 10/08/17 08:50 Dose: 10 ml Sodium Chloride (Flush - Normal Saline) 10 ml IVF PRN PRN PRN Reason: Saline Flush Sotalol HCl (Betapace) 40 mg PO BID [facility] Tramadol HCl (Ultram) 50 mg PO Q4H PRN PRN Reason: Moderate Pain (4-6)
--- NOTE | 2017-10-08 15:04 | PRG ---
DATE OF SERVICE: 10/08/2017 ELECTROPHYSIOLOGY FOLLOWUP NOTE SUBJECTIVE: Ms. Chaney seems to be doing well. No new issues noted. No palpitation, no dizziness, no loss of consciousness. OBJECTIVE: VITAL SIGNS: Blood pressure is 134/52, heart rate 54, respirations 14, temperature 96.9 degrees Fahr enheit. GENERAL: This is an alert and oriented woman, in no apparent distress, elevated BMI. NECK: Supple. Jugular veins not distended. CHEST: Coarse, no crackles. CARDIOVASCULAR: Heart sounds are regular to rate and rhythm. No murmur or gallop. ABDOMEN: Benign. Bowel sounds are positive. EXTREMITIES: Lower extremities without edema, clubbing or cyanosis. LABORATORY DATA: Today's electrolytes show sodium 130, potassium 3.7, BUN 7, creatinine 0.71. MEDICATIONS: Reviewed revealing Zetia, ____, glucagon, insulin, levothyroxine, oxybutynin, rivaroxab an, Xarelto, sodium chloride, sotalol 80 mg twice a day which were reduced to 40 mg twice a day and U ltram. DATABASE: Telemetry strips reveal sinus rhythm, sinus bradycardia, frequent PACs occasionally in a b igeminal fashion. No ventricular arrhythmia. Current EKG reveals sinus rhythm with a prolonged QT a t 512 milliseconds corrected. ASSESSMENT AND PLAN: Ms. Chaney is a pleasant 77-year-old woman with history of atrial arrhythmia. She has been suppressed with a class 1C agent, although due to her significant coronary artery diseas e, decision was made to discontinue the drug and she was switched to Multaq and that was insufficient to keep her in sinus rhythm. Multaq was stopped on admission and a repeat JENNIFER guided cardioversion was attempted, but she did not maintain sinus rhythm. Eventually, we switched her to sotalol and now she is reverted back to sinus rhythm and maintaining it. Though QTC is prolonged, and I am giving _ ___ sotalol, we would like to observe for another day to any proarrhythmias. The sotalol will be dec reased to 40 mg twice a day. 2. History of Watchman device placement about 5 weeks ago with current JENNIFER demonstrating adequate se ating per Dr. San's report. 3. Currently still on Xarelto, which likely could be switched to aspirin and Plavix at the end of wi thin a week or so as per protocol as adequate seating is seen. I will see her tomorrow in the hospital.
[2017-10-08] MEDS: Oxybutynin 5 MG TAB PO SCH (20:52)
[2017-10-08] MEDS: Rivaroxaban 10 MG TAB PO SCH (20:52)
[2017-10-09 05:33] LABS: #Eosinphils 0.1 thou/uL (0.0-0.7); #Lymphocytes 1.3 thou/uL (1.20-3.40); #Monocytes 0.6 thou/uL (0.11-0.59); #Neutrophils 4.4 thou/uL (1.40-6.50); %Basophils 0.6 % (0.0-1.0); %Eosinophils 2.1 % (0.0-10.0); %Lymphocytes 20.1 % (21.0-51.0); %Monocytes 8.7 % (0.0-10.0); %Neutrophils 68.6 % (42.0-75.0); Mean Corpuscular Hemoglobin 31.9 pg (27.0-31.0); Mean Corpuscular Volume 93.9 fL (78.0-98.0); Mean Platelet Volume 6.9 fL (7.4-10.4); Platelet Count 287 thou/uL (130-400); RBC Distribution Width 17.5 % (11.5-14.5); Red Blood Cell (RBC) Count 3.44 mill/uL (4.20-5.40); White Blood Cell (WBC) Count 6.4 thou/uL (4.8-10.8)
[2017-10-09 05:52] LABS: Anion Gap 16 mmol/L (10-20); BUN (Urea Nitrogen) 8 mg/dL (9.8-20.1); Calc. Creatinine Clearance 108 mL/min (70-130); Calcium 8.8 mg/dL (7.8-10.44); Carbon Dioxide 20 mmol/L (23-31); Chloride 105 mmol/L (98-107); Estimated GFR-MDRD 87; Glucose 155 mg/dL (83-110); Potassium 3.4 mmol/L (3.5-5.1); Sodium 138 mmol/L (136-145)
[2017-10-09] MEDS: Levothyroxine Sodium 125 MCG TAB PO SCH (06:22)
[2017-10-09] MEDS ORDERED: Potassium Chloride 20 MEQ TAB PO SCH (09:00)
[2017-10-09] MEDS: Ezetimibe 10 MG TAB PO SCH (09:40)
[2017-10-09] MEDS: Sotalol HCl 80 MG TAB PO SCH (09:40)
[2017-10-09] MEDS: Famotidine 20 MG TAB PO SCH (09:40)
[2017-10-09 13:40] VITALS: BP 148/66; TEMP 97.2
--- NOTE | 2017-10-09 14:36 | PRG ---
DATE OF SERVICE: 10/09/2017 ELECTROPHYSIOLOGY FOLLOWUP NOTE SUBJECTIVE: Ms. Chaney is here with no new symptoms. We have decreased her sotalol and prolonged QT , but no proarrhythmia was seen. Today, the QT is improved and that she had a short run of atrial fl utter. OBJECTIVE: VITAL SIGNS: Blood pressure is 148/66, heart rate 59, respiration is 18, temperature 97.2 degrees Fa hrenheit. GENERAL: Alert and oriented woman in no apparent distress. NECK: Supple. Jugular veins not distended. CHEST: Coarse, no crackles. CARDIOVASCULAR: Heart sounds are regular to rate and rhythm. No murmur or gallop. ABDOMEN: Benign. Bowel sounds positive. EXTREMITIES: Lower extremities without edema, clubbing or cyanosis. DATABASE: EKG reveals sinus rhythm with narrow QRS, QTC is 470 milliseconds at a rate of 56 beats pe r minute. LABORATORY DATA: White count 6.4, hemoglobin 11, platelet count is 287,000. Sodium 138, potassium 3 .4, BUN is 8, creatinine 0.66. ASSESSMENT AND PLAN: Ms. Chaney is a pleasant 77-year-old woman with history of paroxysmal atrial ar rhythmias recently, her long-term antagonist suppressive therapy with propafenone was stopped due to the presence of significant coronary artery disease. She was switched to Multaq, but had recurrent a rrhythmia. She had atypical atrial flutter and although we tried to cardiovert her, she had recurren migue. Multaq was held on admission. She was started on sotalol at 120 mg twice a day dosage first, b ut then was decreased to 89 and eventually 40 due to personally prolonged QT. This could be partiall y due to the interim Multaq washout also still occurring. Now though the QTC is improved on 4 mg twi ce a day dose. She has had short nonsustained atrial flutter, but with controlled ventricular rates. At this point, we will discharge her on the current sotalol dose. Routine followup will be request ed. If further frequent episodes, consideration for outpatient left atrial ablation procedures could be made. 2. Prior history of atrial flutter ablation by Dr. Thorpe in 11/2015 now with atypical likely left at rial arrhythmias. 3. History of gastrointestinal bleed and eventually Watchman procedure on 08/28/2017. Currently, st ill on Xarelto, but JENNIFER during this admission demonstrated adequate seating of the device. The plan is to discontinue Xarelto 6 weeks after the original Watchman device placement and should likely be h appening end of this week. I requested her to contact Dr. Coffey's nurse and likely she will be s witched over to aspirin and Plavix at that time. 4. Follow up requested in the office in 2-4 weeks.
--- NOTE | 2017-10-10 02:31 | DIS ---
DATE OF ADMISSION: 10/04/2017 DATE OF DISCHARGE: 10/09/2017 PRIMARY CARE PHYSICIAN: Rebeca Puga MD DISCHARGE DIAGNOSIS: Atrial arrhythmias, recurrent. CONDITION OF THE PATIENT ON THE DAY OF DISCHARGE: Stable. I assessed Ms. Chaney on the day of disch argtereza. She denies any chest pain or shortness of breath. Vital signs are stable. S1 and S2 are hear d, regular. Lungs are clear to auscultation bilaterally. CONSULTATIONS DURING THIS HOSPITALIZATION: Cardiology, Dr. San; and Electrophysiology, Dr. Panchito calloway. DISCHARGE MEDICATIONS: Sotalol 40 mg 2 times a day, Zetia 10 mg daily, glimepiride 4 mg 2 times a da y, Synthroid 175 mcg daily, metformin 2000 mg at bedtime, oxybutynin 5 mg at bedtime, rivaroxaban 20 mg at bedtime. HOSPITAL COURSE: Ms. Chaney is a pleasant 77-year-old lady who was admitted to [facility] on 10/04/2017 for recurrent atrial arrhythmias. She was seen by Cardiology Service. On 10/05/2017, she underwent cardioversion following a TTE. JENNIFER showed that Watchman device was well v isualized and no flow noted into the left atrial appendage. Cardioversion was unsuccessful. She was seen by Electrophysiology Service. She was started on sotalol. She cardioverted to a normal sinus rhythm. Because of prolonged corrected QT interval, she was monitored and her sotalol dose needed de creasing. She has been cleared for discharge on 10/09/2017 by Electrophysiology Service. She has also been advised that she should follow up with Dr. Coffey's nurse and she will likely be switched over to aspirin and Plavix 6 weeks after the original Watchman device placement, likely at the end of this week. Many thanks for allowing me to participate in your patient's care. Please feel free to contact me wi th any questions or concerns. On the day of discharge, she had sodium 138, potassium 3.4, creatinine 0.66, white count 6400, hemogl obin 11, and platelet count 287,000. DISCHARGE DESTINATION: Home. TOTAL AMOUNT OF TIME SPENT COORDINATING THIS DISCHARGE: 33 minutes.
--- NOTE | 2017-10-11 23:00 | EKG ---
Test Reason : Blood Pressure : / mmHG Vent. Rate : 091 BPM Atrial Rate : 096 BPM P-R Int : 000 ms QRS Dur : 080 ms QT Int : 404 ms P-R-T Axes : 000 -58 009 degrees QTc Int : 496 ms Atrial fibrillation Left axis deviation Low voltage QRS Inferior infarct (cited on or before 24-SEP-2017) Cannot rule out Anterior infarct (cited on or before 24-SEP-2017) Abnormal ECG When compared with ECG of 04-OCT-2017 10:01, (Unconfirmed) Vent. rate has decreased BY 50 BPM Confirmed by Chase VALDEZ ([id number]) on 10/11/2017 11:00:02 PM Referred By: MIK Confirmed By:Chase VALDEZ
--- NOTE | 2017-10-11 23:01 | EKG ---
Test Reason : Blood Pressure : / mmHG Vent. Rate : 057 BPM Atrial Rate : 057 BPM P-R Int : 208 ms QRS Dur : 086 ms QT Int : 526 ms P-R-T Axes : 035 -48 -07 degrees QTc Int : 511 ms Sinus bradycardia Left axis deviation Nonspecific ST abnormality Prolonged QT Abnormal ECG When compared with ECG of 06-OCT-2017 20:09, (Unconfirmed) Sinus rhythm has replaced Atrial fibrillation Vent. rate has decreased BY 34 BPM Minimal criteria for Anterior infarct are no longer Present Confirmed by Chase VALDEZ ([id number]) on 10/11/2017 11:00:56 PM Referred By: [facility] Confirmed By:Chase VALDEZ
--- NOTE | 2017-10-11 23:09 | EKG ---
Test Reason : Blood Pressure : / mmHG Vent. Rate : 054 BPM Atrial Rate : 054 BPM P-R Int : 222 ms QRS Dur : 082 ms QT Int : 544 ms P-R-T Axes : 047 -43 -08 degrees QTc Int : 515 ms Sinus bradycardia with 1st degree A-V block Left axis deviation Cannot rule out Anterior infarct , age undetermined Prolonged QT Abnormal ECG When compared with ECG of 07-OCT-2017 07:15, (Unconfirmed) No significant change was found Confirmed by Chase VALDEZ ([id number]) on 10/11/2017 11:09:03 PM Referred By: TEO Confirmed By:Chase VALDEZ
--- NOTE | 2017-10-11 23:15 | EKG ---
Test Reason : Blood Pressure : / mmHG Vent. Rate : 052 BPM Atrial Rate : 052 BPM P-R Int : 208 ms QRS Dur : 080 ms QT Int : 510 ms P-R-T Axes : 027 -37 -04 degrees QTc Int : 474 ms Sinus bradycardia Left axis deviation Cannot rule out Anterior infarct (cited on or before 08-OCT-2017) Abnormal ECG When compared with ECG of 08-OCT-2017 06:52, (Unconfirmed) No significant change was found Confirmed by Chase VALDEZ ([id number]) on 10/11/2017 11:14:48 PM Referred By: JOSÉ MIGUEL Confirmed By:Chase VALDEZ
== END 2017-10-09 18:49 | disposition home or self-care (01) | DRG 310 ==
LOC: ERS 09:54 → ERHOLD 12:06 → 2SW 16:56 → OBSVTOIN 10-05 16:08 → 2NO 10-07 16:06
PROVIDERS: ADMIT Internal Medicine; ATTEND Internal Medicine
PROC: 5A2204Z Restoration of Cardiac Rhythm, Single (ICD-10-PCS; principal; 2017-10-05)
PROC: B245ZZ4 Ultrasonography of Left Heart, Transesophageal (ICD-10-PCS; 2017-10-05)
DX: I48.0 Paroxysmal atrial fibrillation (principal); I25.10 Atherosclerotic heart disease of native coronary artery without angina pectoris; I10 Essential (primary) hypertension; E11.9 Type 2 diabetes mellitus without complications; E03.9 Hypothyroidism, unspecified; Z90.11 Acquired absence of right breast and nipple; Z88.5 Allergy status to narcotic agent; Z85.3 Personal history of malignant neoplasm of breast; Z79.01 Long term (current) use of anticoagulants
CPT/HCPCS: 36415; 36416; 71045; 80048; 80053; 82553; 83036; 83880; 84443; 84484; 85025; 85610; 85730; 92960; 93005; 93010; 93306; 93312; 96365; 96366; A4216; J1815; J2704; J7050; S0028

== ENCOUNTER 2017-10-16 12:41 | Inpatient (IN) | payer MEDICARE ==
--- NOTE | 2017-10-16 14:27 | RAD ---
CHEST ONE VIEW: History: Cough and fever. Comparison: 10-04-17 FINDINGS: Cardiac silhouette is magnified by projection. Pulmonary vasculature is unremarkable. Mediastinum mid line with aortic calcification. Mild interstitial markings at the lung bases are nonspecific and stab le. Post-operative changes right axilla. IMPRESSION: 1. Atherosclerosis. 2. No active cardiopulmonary abnormalities are demonstrated. POS: [facility]
[2017-10-16 14:50] LABS: #Lymphocytes 1.5 thou/uL (1.20-3.40); #Monocytes 0.8 thou/uL (0.11-0.59); #Neutrophils 15.6 thou/uL (1.40-6.50); %Basophils 0.3 % (0.0-1.0); %Lymphocytes 8.4 % (21.0-51.0); %Monocytes 4.6 % (0.0-10.0); %Neutrophils 86.7 % (42.0-75.0); Mean Corpuscular Hemoglobin 31.1 pg (27.0-31.0); Mean Corpuscular Volume 94.1 fL (78.0-98.0); Mean Platelet Volume 6.9 fL (7.4-10.4); Platelet Count 281 thou/uL (130-400); RBC Distribution Width 17.7 % (11.5-14.5); Red Blood Cell (RBC) Count 4.18 mill/uL (4.20-5.40); White Blood Cell (WBC) Count 17.9 thou/uL (4.8-10.8)
[2017-10-16 15:14] LABS: ALT (SGPT) 10 U/L (8-55); AST (SGOT) 15 U/L (5-34); Albumin 4.2 g/dL (3.4-4.8); Alkaline Phosphatase 68 U/L (40-150); Anion Gap 13 mmol/L (10-20); BUN (Urea Nitrogen) 8 mg/dL (9.8-20.1); Bilirubin, Total 0.8 mg/dL (0.2-1.2); Calc. Creatinine Clearance 0 mL/min (70-130); Calcium 9.3 mg/dL (7.8-10.44); Carbon Dioxide 26 mmol/L (23-31); Chloride 96 mmol/L (98-107); Estimated GFR-MDRD 66; Glucose 136 mg/dL (83-110); Protein, Total 8.2 g/dL (6.0-8.3); Sodium 131 mmol/L (136-145)
[2017-10-16 15:56] LABS: Magnesium 1.5 mg/dL (1.6-2.6)
[2017-10-16 16:29] LABS: Bilirubin Negative (Negative); Blood, Urine Moderate (Negative); Clarity TURBID (Clear); Glucose, Urine (Dipstick) Negative (Negative); Leukocyte Large (Negative); Nitrite Negative (Negative); Protein, Urine (Dipstick) Trace mg/dL (Neg-Trace); Specific Gravity, Urine 1.006 (1.002-1.036); Urobilinogen 0.2 mg/dL (0.2-1.0)
[2017-10-16 16:33] LABS: Bacteria/HPF 4+ HPF (None Seen); Hyaline Casts/LPF 4-6 HYALINE CAST LPF (0-3 Hyaline); Pathc Cast-AUWi Flag 0.87 (0-2.49); RBC/HPF 0-3 HPF (0-3); Squamous Epithelial 0-3 HPF (0-3)
[2017-10-16] MEDS ORDERED: cefTRIAXone\\ROCEPHIN 2 GM VIAL ONE (17:18)
[2017-10-16 19:10] LABS: Lactic Acid 2.1 mmol/L (0.5-2.2)
[2017-10-16 21:30] VITALS: BMI 33.6
[2017-10-16] MEDS ORDERED: Magnesium Sulfate 2 GM in Sodium Chloride 0.9% 100 ML IVPB SCH (21:30)
[2017-10-16] MEDS ORDERED: Sodium Chloride 0.9% 1,000 ML IV SCH (21:48)
[2017-10-16] MEDS ORDERED: Ondansetron HCl/PF 4 MG/2 ML Vial IVP PRN (21:48)
[2017-10-16] MEDS ORDERED: Ondansetron ODT 4 MG TAB SL PRN (21:48)
[2017-10-17] MEDS ORDERED: Acetaminophen 325 MG TAB PO PRN (05:09)
[2017-10-17] MEDS ORDERED: Senokot 8.6 MG TAB PO PRN (05:09)
[2017-10-17] MEDS ORDERED: Calcium Carbonate 500 MG ChewTAB PO PRN (05:09)
--- NOTE | 2017-10-17 05:32 | HP ---
DATE OF ADMISSION: 10/17/2017 The patient was seen and examined on 10/16/2017. PRIMARY CARE PHYSICIAN: Dr. Rebeca Puga. CHIEF COMPLAINT: Fever. HISTORY OF PRESENT ILLNESS: The patient is a 77-year-old female with recent hospitalization for atrial fibrillation with rapid ventricular response, presented to the emergency room with fever and chills that has been going on since last 12-24 hours. She had some nonproductive cough. There was no shortness of breath, skin rash, altered mentation, dysuria, hematuria, urgency, abdominal pain, nausea, vomiting, diarrhea. Her temperature at home was 102 degrees Fahrenheit. She also had some chills. In the emergency room, she received Levaquin with ceftriaxone and IV fluids. Urinalysis showed greater than 50 wbc's with 4+ bacteria, large leukocyte esterase. PAST MEDICAL HISTORY: 1. Recurrent atrial arrhythmia, status post recent JENNIFER cardioversion. 2. Diabetes mellitus, type 2. 3. Hypertension. 4. Hypothyroidism. 5. Glaucoma. 6. History of breast cancer, status post mastectomy. PAST SURGICAL HISTORY: 1. Bilateral tubal ligation. 2. Hernia repair. 3. Right radical mastectomy. 4. EGD. 5. Breast reconstruction. 6. Carpal tunnel release. 7. Cataract surgery. 8. Recent JENNIFER cardioversion. ALLERGIES: The patient is allergic to CODEINE. CURRENT HOME MEDICATIONS: Aspirin, Plavix, Zetia, glimepiride, levothyroxine, metformin, omeprazole, oxybutynin, sotalol and eyedrops for glaucoma. Dosages to be confirmed. FAMILY HISTORY: Negative for heart disease. SOCIAL HISTORY: She currently lives at home. Denies any smoking, alcohol or drug use. REVIEW OF SYSTEMS: The following complete review of systems was negative, unless otherwise mentioned in the HPI or below: Constitutional: Weight loss or gain, ability to conduct usual activities. Skin: Rash, itching. Eyes: Double vision, pain. ENT/Mouth: Nose bleeding, neck stiffness, pain, tenderness. Cardiovascular: Palpitations, dyspnea on exertion, orthopnea. Respiratory: Shortness of breath, wheezing, cough, hemoptysis, fever or night sweats. Gastrointestinal: Poor appetite, abdominal pain, heartburn, nausea, vomiting, constipation, or diarrhea. Genitourinary: Urgency, frequency, dysuria, nocturia. Musculoskeletal: Pain, swelling. Neurologic/Psychiatric: Anxiety, depression. Allergy/Immunologic: Skin rash, bleeding tendency. PHYSICAL EXAMINATION: VITAL SIGNS: Temperature 99.7, respirations 22, pulse rate of 78 with a blood pressure of 129/63 with O2 saturation 97% on room air. GENERAL: A 77-year-old female, in no apparent distress. HEENT: Head atraumatic, normocephalic. Sclerae are anicteric. Moist mucous membrane. No oral lesion. NECK: Supple, no JVD, no carotid bruit. LUNGS: Clear to auscultation bilaterally. No significant wheezing, rales or rhonchi. HEART: S1, S2 present. Regular rate and rhythm. No heaves or pulsation. ABDOMEN: Soft, nontender, bowel sounds present. EXTREMITIES: No calf tenderness. SKIN: Warm and dry. LYMPH NODES: No palpable lymph nodes in the neck. PERIPHERAL VASCULAR: Radial pulses palpable bilaterally. MUSCULOSKELETAL: No joint swelling or tenderness. LABORATORY FINDINGS: CBC showed WBC 17.9 with hemoglobin 13, hematocrit 39.3, platelet 281. Chemistry showed sodium 131, potassium 4, chloride 96, bicarbonate 26, BUN 8, creatinine 0.84, magnesium 1.5, lactic acid 2.3. Urinalysis as discussed above. IMPRESSION: 1. Sepsis with acute organ dysfunction secondary to urinary tract infection. 2. Hypomagnesemia. 3. Lactic acidosis. 4. Chronic kidney disease, stage 2. 5. Hyponatremia. 6. Obesity with a body mass index of 33.6. 7. Paroxysmal atrial fibrillation with recent cardioversion. 8. Diabetes mellitus, type 2. 9. Hypertension. 10. Hypothyroidism. 11. Hyperlipidemia. PLAN: The patient will be monitored on the medical floor. Empiric antibiotics will be continued. We will get a renal ultrasound to rule out complicated UTI. We will resume all of her home medications once confirmed. Vital signs q.4 hourly. Gentle IV hydration. Plan of care was discussed with the patient in detail. She stated understanding. CODE STATUS: FULL CODE. SURROGATE DECISION MAKER: The patient makes her own decision with the help of her family. VINCENT
[2017-10-17] MEDS: Sodium Chloride 0.9% 1,000 ML IV SCH ×2 (05:41→13:21)
[2017-10-17] MEDS: Piperacillin/Tazobactam 3.375 GM in Sodium Chloride 0.9% 100 ML IVPB SCH ×4 (05:44→23:23)
[2017-10-17] MEDS: Levothyroxine Sodium 112 MCG TAB PO SCH (05:44)
[2017-10-17] MEDS ORDERED: Zolpidem Tartrate 5 MG TAB PO PRN (07:48)
[2017-10-17] MEDS ORDERED: Ondansetron ODT 4 MG TAB PO PRN (07:48)
[2017-10-17] MEDS ORDERED: hydrALAZINE 20 MG/ML VIAL SLOW IVP PRN (07:48)
[2017-10-17] MEDS ORDERED: Milk Of Magnesia 30 ML UDCUP PO PRN (07:48)
[2017-10-17] MEDS ORDERED: Diabetic Tussin 200 MG/10 ML UDCUP PO PRN (07:48)
[2017-10-17] MEDS ORDERED: Chloraseptic Spray 180 ml Bottle PO PRN (07:48)
[2017-10-17] MEDS ORDERED: Ondansetron HCl/PF 4 MG/2 ML Vial IVP PRN (07:48)
[2017-10-17] MEDS ORDERED: Loperamide HCl 2 MG CAP PO PRN (07:48)
[2017-10-17] MEDS ORDERED: Sodium Chloride 0.65% Nasal 44 ML BOT EA NARE PRN (07:48)
[2017-10-17] MEDS ORDERED: Eucerin (Mineral Oil/Petrolatum,White) 30 gm Jar TOP PRN (07:48)
[2017-10-17] MEDS ORDERED: Loratadine 10 MG TAB PO PRN (07:48)
[2017-10-17] MEDS ORDERED: Artificial Tears 18 DROP/0.9 ML EA EYE PRN (07:48)
[2017-10-17] MEDS ORDERED: Famotidine 20 MG TAB PO SCH (09:00)
[2017-10-17] MEDS ORDERED: Non-Formulary Item 1 EACH (Omeprazole [Omeprazole] 1 CAP) PO SCH (09:00)
[2017-10-17] MEDS: Clopidogrel Bisulfate 75 MG TAB PO SCH (09:56)
[2017-10-17] MEDS: Ezetimibe 10 MG TAB PO SCH (09:56)
[2017-10-17] MEDS: Aspirin 81 mg Enteric Coated Tablet PO SCH (09:56)
[2017-10-17] MEDS: Docusate 100 MG CAP PO SCH ×3 (09:56→21:04)
[2017-10-17] MEDS: Saccharomyces boulardii 250 MG CAP PO SCH (09:56)
[2017-10-17] MEDS: Sotalol HCl 80 MG TAB PO SCH ×2 (10:07→21:03)
[2017-10-17] MEDS: Glimepiride 4 MG TAB PO SCH (10:07)
[2017-10-17] MEDS: Dorzolamide HCl/Timolol Maleate 2%/0.5% Ophth Soln 10 ml Bottle EA EYE SCH ×2 (10:08→21:04)
--- NOTE | 2017-10-17 11:25 | PDOC.PN ---
- Subjective Encounter Start Date: 10/17/17 Encounter Start Time: 08:30 -: old records requested/rev Patient seen and examined. No new complaints. No overnight events history obtained from her, she is doing well - Objective Resuscitation Status: Resuscitation Status FULL:Full Resuscitation MAR Reviewed: Yes Vital Signs & Weight: Vital Signs (12 hours) Temp Pulse Resp BP BP BP Pulse Ox 10/17/17 10:07 117 H 126/69 10/17/17 07:30 98.6 F 118 H 16 126/69 97 10/17/17 04:00 98.1 F 16 148/85 H 94 L Weight Weight 214 lb 11.684 oz I&O: 10/16/17 10/17/17 10/18/17 06:59 06:59 06:59 Intake Total 880 Balance 880 Result Diagrams: 10/16/17 14:25 10/16/17 14:25 Radiology Reviewed by me: Yes (chest xray reviewed) Phys Exam - Physical Examination Constitutional: NAD HEENT: PERRLA, moist MMs, sclera anicteric Neck: no JVD, supple Respiratory: no wheezing, no rales, no rhonchi Cardiovascular: RRR, no significant murmur, no rub Gastrointestinal: soft, non-tender, no distention, positive bowel sounds Musculoskeletal: no edema, pulses present Neurological: non-focal, normal sensation, moves all 4 limbs Psychiatric: normal affect, A&O x 3 Skin: no rash, normal turgor Dx/Plan (1) Hypomagnesemia Code(s): E83.42 - HYPOMAGNESEMIA Status: Acute (2) Lactic acidosis Code(s): E87.2 - ACIDOSIS Status: Resolved (3) Sepsis with acute organ dysfunction Code(s): A41.9 - SEPSIS, UNSPECIFIED ORGANISM; R65.20 - SEVERE SEPSIS WITHOUT SEPTIC SHOCK Status: Acute (4) UTI (urinary tract infection) Status: Acute (5) CAD (coronary artery disease) Code(s): I25.10 - ATHSCL HEART DISEASE OF [place] CORONARY ARTERY W/O ANG PCTRS Status: Chronic Qualifiers: Comment: stable (6) CKD (chronic kidney disease) stage 2, GFR 60-89 ml/min Code(s): N18.2 - CHRONIC KIDNEY DISEASE, STAGE 2 (MILD) Status: Chronic (7) DM type 2 (diabetes mellitus, type 2) Status: Chronic Qualifiers: Comment: reasonably controlled (8) GERD (gastroesophageal reflux disease) Code(s): K21.9 - GASTRO-ESOPHAGEAL REFLUX DISEASE WITHOUT ESOPHAGITIS Status: Chronic (9) Glaucoma Code(s): H40.9 - UNSPECIFIED GLAUCOMA Status: Chronic (10) HTN (hypertension) Code(s): I10 - ESSENTIAL (PRIMARY) HYPERTENSION Status: Chronic Qualifiers: Comment: controlled and at goal (11) Hypothyroidism Code(s): E03.9 - HYPOTHYROIDISM, UNSPECIFIED Status: Chronic (12) Obesity (BMI 30.0-34.9) Code(s): E66.9 - OBESITY, UNSPECIFIED Status: Chronic (13) Paroxysmal atrial fibrillation Code(s): I48.0 - PAROXYSMAL ATRIAL FIBRILLATION Status: Chronic - Plan cont current plan of care, continue antibiotics * magnesium replaced * continue IVF * continue zosyn * follow culture * medication reviewed as below * symptomatic treatment * selected home medication reconciled. Review of Systems - Review of Systems Eyes: negative: Pain, Vision Change, Conjunctivae Inflammation, Eyelid Inflammation, Redness, Other ENT: negative: Ear Pain, Ear Discharge, Nose Pain, Nose Discharge, Nose Congestion, Mouth Pain, Mouth Swelling, Throat Pain, Throat Swelling, Other Respiratory: negative: Cough, Dry, Shortness of Breath, Hemoptysis, SOB with Excertion, Pleuritic Pain, Sputum, Wheezing Cardiovascular: negative: chest pain, palpitations, orthopnea, paroxysmal nocturnal dyspnea, edema, light headedness, other Gastrointestinal: negative: Nausea, Vomiting, Abdominal Pain, Diarrhea, Constipation, Melena, Hematochezia, Other Genitourinary: negative: Dysuria, Frequency, Incontinence, Hematuria, Retention , Other Musculoskeletal: negative: Neck Pain, Shoulder Pain, Arm Pain, Back Pain, Hand Pain, Leg Pain, Foot Pain, Other Skin: negative: Rash, Lesions, Sagar, Bruising, Other - Medications/Allergies Allergies/Adverse Reactions: Allergies Allergy/AdvReac Type Severity Reaction Status Date / Time codeine AdvReac Severe NAUSEA/VOMI Verified 09/24/17 11:21 TING Medications: Current Medications Acetaminophen (Tylenol) 650 mg PO Q4H PRN PRN Reason: Headache/Fever or Pain Artificial Tears (Tears Naturale) 0 drop EA EYE PRN PRN PRN Reason: Dry Eyes Aspirin (Ecotrin) 81 mg PO DAILY [facility] Last Admin: 10/17/17 09:56 Dose: 81 mg Calcium Carbonate (Tums) 1,000 mg PO Q4H PRN PRN Reason: Heartburn or Indigestion Clopidogrel Bisulfate (Plavix) 75 mg PO DAILY [facility] Last Admin: 10/17/17 09:56 Dose: 75 mg Docusate Sodium (Colace) 100 mg PO BID [facility] Last Admin: 10/17/17 10:13 Dose: Not Given Dorzolamide/Timolol (Cosopt 2-0.5% Ophth Soln) 1 drop EA EYE BID [facility] Last Admin: 10/17/17 10:08 Dose: 1 drop Ezetimibe (Zetia) 10 mg PO DAILY [facility] Last Admin: 10/17/17 09:56 Dose: 10 mg Glimepiride (Amaryl) 4 mg PO QAM-WM [facility] Last Admin: 10/17/17 10:07 Dose: 4 mg Guaifenesin (Robitussin Sf) 200 mg PO Q4H PRN PRN Reason: Cough Hydralazine HCl (Apresoline) 10 mg SLOW IVP Q4H PRN PRN Reason: Systolic BP > 180 Piperacillin Sod/Tazobactam (Sod 3.375 gm/ Sodium Chloride) 100 mls @ 200 mls/ hr IVPB Q6HR [facility] Last Admin: 10/17/17 05:44 Dose: 100 mls Sodium Chloride (Normal Saline 0.9%) 1,000 mls @ 70 mls/hr IV .[id number] [facility] Last Admin: 10/17/17 05:41 Dose: Not Given Levothyroxine Sodium (Synthroid) 112 mcg PO 0600 [facility] Last Admin: 10/17/17 05:44 Dose: 112 mcg Loperamide HCl (Imodium) 2 mg PO PRN PRN PRN Reason: Diarrhea/Loose Stools Loratadine (Claritin) 10 mg PO DAILYPRN PRN PRN Reason: Sinus Symptoms Magnesium Hydroxide (Milk Of Magnesium) 30 ml PO DAILYPRN PRN PRN Reason: Constipation Mineral Oil/White Petrolatum (Eucerin Cream) 0 gm TOP BIDPRN PRN PRN Reason: Dry Skin Miscellaneous Medication (Pharmacy To Dose) 0 each IVPB PRN PRN PRN Reason: RENAL ABX Pharmacy to Dose Ondansetron HCl (Zofran Odt) 4 mg PO Q6H PRN PRN Reason: Nausea/Vomiting Ondansetron HCl (Zofran) 4 mg IVP Q6H PRN PRN Reason: Nausea/Vomiting Oxybutynin Chloride (Ditropan Xl) 5 mg PO HS [facility] Pantoprazole Sodium (Protonix) 40 mg PO DAILY [facility] Last Admin: 10/17/17 09:56 Dose: 40 mg Phenol (Chloraseptic [place] 180 Ml Bot) 0 ml PO PRN PRN PRN Reason: Sore Throat Saccharomyces Boulardii (Florastor) 250 mg PO DAILY [facility] Last Admin: 10/17/17 09:56 Dose: 250 mg Sodium Chloride (Flush - Normal Saline) 10 ml IVF Q12HR [facility] Last Admin: 10/17/17 10:08 Dose: Not Given Sodium Chloride (Flush - Normal Saline) 10 ml IVF PRN PRN PRN Reason: Saline Flush Last Admin: 10/16/17 21:53 Dose: 10 ml Sodium Chloride ([place] Nasal [place] 0.65%) 0 ml EA NARE QIDPRN PRN PRN Reason: Nasal Congestion Sotalol HCl (Betapace) 40 mg PO BID [facility] Last Admin: 10/17/17 10:07 Dose: 40 mg Zolpidem Tartrate (Ambien) 5 mg PO HSPRN PRN PRN Reason: Insomnia
--- NOTE | 2017-10-17 14:13 | ULT ---
BILATERAL RENAL ULTRASOUND: HISTORY: UTI and sepsis. FINDINGS: The right kidney measures 10.1 cm in length and the left kidney measures 11.9 cm in length. No focal mass or hydronephrosis on either side. Cortical echogenicity and thickness is normal. The urinary bladder is grossly unremarkable with a volume of 140 cc. IMPRESSION: No evidence of obstructive uropathy. POS: [facility]
[2017-10-17] MEDS: Oxybutynin ER 5 MG TAB PO SCH (21:05)
[2017-10-18 05:31] LABS: #Eosinphils 0.1 thou/uL (0.0-0.7); #Lymphocytes 1.2 thou/uL (1.20-3.40); #Neutrophils 6.9 thou/uL (1.40-6.50); %Basophils 0.2 % (0.0-1.0); %Eosinophils 0.6 % (0.0-10.0); %Lymphocytes 12.7 % (21.0-51.0); %Monocytes 10.8 % (0.0-10.0); %Neutrophils 75.6 % (42.0-75.0); Hemoglobin 10.3 g/dL (12.0-16.0); Mean Corpuscular HGB CONC 33.8 g/dL (32.0-36.0); Mean Corpuscular Hemoglobin 31.7 pg (27.0-31.0); Mean Corpuscular Volume 93.8 fL (78.0-98.0); Mean Platelet Volume 7.3 fL (7.4-10.4); Platelet Count 163 thou/uL (130-400); RBC Distribution Width 17.1 % (11.5-14.5); Red Blood Cell (RBC) Count 3.25 mill/uL (4.20-5.40); White Blood Cell (WBC) Count 9.1 thou/uL (4.8-10.8)
[2017-10-18] MEDS: Levothyroxine Sodium 112 MCG TAB PO SCH (05:33)
[2017-10-18] MEDS: Piperacillin/Tazobactam 3.375 GM in Sodium Chloride 0.9% 100 ML IVPB SCH ×4 (05:34→23:37)
[2017-10-18] MEDS: Sodium Chloride 0.9% 1,000 ML IV SCH (05:35)
[2017-10-18 05:54] LABS: ALT (SGPT) 8 U/L (8-55); AST (SGOT) 13 U/L (5-34); Albumin 3.1 g/dL (3.4-4.8); Alkaline Phosphatase 53 U/L (40-150); Anion Gap 11 mmol/L (10-20); BUN (Urea Nitrogen) 6 mg/dL (9.8-20.1); Bilirubin, Total 0.6 mg/dL (0.2-1.2); Calc. Creatinine Clearance 110 mL/min (70-130); Carbon Dioxide 25 mmol/L (23-31); Chloride 103 mmol/L (98-107); Estimated GFR-MDRD 87; Glucose 116 mg/dL (83-110); Magnesium 1.7 mg/dL (1.6-2.6); Protein, Total 6.1 g/dL (6.0-8.3); Sodium 136 mmol/L (136-145)
[2017-10-18] MEDS: Sotalol HCl 80 MG TAB PO SCH ×2 (08:01→20:58)
[2017-10-18] MEDS: Saccharomyces boulardii 250 MG CAP PO SCH (08:03)
[2017-10-18] MEDS: Ezetimibe 10 MG TAB PO SCH (08:03)
[2017-10-18] MEDS: Aspirin 81 mg Enteric Coated Tablet PO SCH (08:03)
[2017-10-18] MEDS: Clopidogrel Bisulfate 75 MG TAB PO SCH (08:03)
[2017-10-18] MEDS: Dorzolamide HCl/Timolol Maleate 2%/0.5% Ophth Soln 10 ml Bottle EA EYE SCH ×2 (08:04→20:59)
[2017-10-18] MEDS: Oxybutynin ER 5 MG TAB PO SCH (08:04)
[2017-10-18] MEDS: Docusate 100 MG CAP PO SCH ×2 (08:08→19:49)
[2017-10-18] MEDS: Glimepiride 4 MG TAB PO SCH (08:55)
--- NOTE | 2017-10-18 09:31 | PDOC.PN ---
- Subjective Encounter Start Date: 10/18/17 Encounter Start Time: 09:00 Patient seen and examined. No new complaints. No overnight events - Objective Resuscitation Status: Resuscitation Status FULL:Full Resuscitation MAR Reviewed: Yes Vital Signs & Weight: Vital Signs (12 hours) Temp Pulse Resp BP Pulse Ox 10/18/17 08:01 76 10/18/17 05:57 98.3 F 76 20 115/73 97 10/18/17 04:29 92 L Weight Weight 214 lb 11.684 oz I&O: 10/17/17 10/18/17 10/19/17 06:59 06:59 06:59 Intake Total 880 1940 Balance 880 1940 Result Diagrams: 10/18/17 05:13 10/18/17 05:13 Additional Labs: Accuchecks 10/17/17 10/17/17 16:15 11:20 POC Glucose 131 H 178 H Phys Exam - Physical Examination Constitutional: NAD HEENT: PERRLA, moist MMs, sclera anicteric Neck: no JVD, supple Respiratory: no wheezing, no rales, no rhonchi Cardiovascular: RRR, no significant murmur, no rub Gastrointestinal: soft, non-tender, no distention, positive bowel sounds Musculoskeletal: no edema, pulses present Neurological: non-focal, normal sensation, moves all 4 limbs Lymphatic: no nodes Psychiatric: normal affect, A&O x 3 Skin: no rash, normal turgor Dx/Plan (1) Hypomagnesemia Code(s): E83.42 - HYPOMAGNESEMIA Status: Acute (2) Lactic acidosis Code(s): E87.2 - ACIDOSIS Status: Resolved (3) Sepsis with acute organ dysfunction Code(s): A41.9 - SEPSIS, UNSPECIFIED ORGANISM; R65.20 - SEVERE SEPSIS WITHOUT SEPTIC SHOCK Status: Acute (4) UTI (urinary tract infection) Status: Acute (5) CAD (coronary artery disease) Code(s): I25.10 - ATHSCL HEART DISEASE OF [place] CORONARY ARTERY W/O ANG PCTRS Status: Chronic Qualifiers: Comment: stable (6) CKD (chronic kidney disease) stage 2, GFR 60-89 ml/min Code(s): N18.2 - CHRONIC KIDNEY DISEASE, STAGE 2 (MILD) Status: Chronic (7) DM type 2 (diabetes mellitus, type 2) Status: Chronic Qualifiers: Comment: reasonably controlled (8) GERD (gastroesophageal reflux disease) Code(s): K21.9 - GASTRO-ESOPHAGEAL REFLUX DISEASE WITHOUT ESOPHAGITIS Status: Chronic (9) Glaucoma Code(s): H40.9 - UNSPECIFIED GLAUCOMA Status: Chronic (10) HTN (hypertension) Code(s): I10 - ESSENTIAL (PRIMARY) HYPERTENSION Status: Chronic Qualifiers: Comment: controlled and at goal (11) Hypothyroidism Code(s): E03.9 - HYPOTHYROIDISM, UNSPECIFIED Status: Chronic (12) Obesity (BMI 30.0-34.9) Code(s): E66.9 - OBESITY, UNSPECIFIED Status: Chronic (13) Paroxysmal atrial fibrillation Code(s): I48.0 - PAROXYSMAL ATRIAL FIBRILLATION Status: Chronic - Plan * . Review of Systems - Review of Systems Eyes: negative: Pain, Vision Change, Conjunctivae Inflammation, Eyelid Inflammation, Redness, Other ENT: negative: Ear Pain, Ear Discharge, Nose Pain, Nose Discharge, Nose Congestion, Mouth Pain, Mouth Swelling, Throat Pain, Throat Swelling, Other Respiratory: negative: Cough, Dry, Shortness of Breath, Hemoptysis, SOB with Excertion, Pleuritic Pain, Sputum, Wheezing Cardiovascular: negative: chest pain, palpitations, orthopnea, paroxysmal nocturnal dyspnea, edema, light headedness, other Gastrointestinal: negative: Nausea, Vomiting, Abdominal Pain, Diarrhea, Constipation, Melena, Hematochezia, Other Genitourinary: negative: Dysuria, Frequency, Incontinence, Hematuria, Retention , Other Musculoskeletal: negative: Neck Pain, Shoulder Pain, Arm Pain, Back Pain, Hand Pain, Leg Pain, Foot Pain, Other Skin: negative: Rash, Lesions, Sagar, Bruising, Other - Medications/Allergies Allergies/Adverse Reactions: Allergies Allergy/AdvReac Type Severity Reaction Status Date / Time codeine AdvReac Severe NAUSEA/VOMI Verified 09/24/17 11:21 TING Medications: Current Medications Acetaminophen (Tylenol) 650 mg PO Q4H PRN PRN Reason: Headache/Fever or Pain Artificial Tears (Tears Naturale) 0 drop EA EYE PRN PRN PRN Reason: Dry Eyes Aspirin (Ecotrin) 81 mg PO DAILY [facility] Last Admin: 10/18/17 08:03 Dose: 81 mg Calcium Carbonate (Tums) 1,000 mg PO Q4H PRN PRN Reason: Heartburn or Indigestion Clopidogrel Bisulfate (Plavix) 75 mg PO DAILY [facility] Last Admin: 10/18/17 08:03 Dose: 75 mg Docusate Sodium (Colace) 100 mg PO BID [facility] Last Admin: 10/18/17 08:08 Dose: Not Given Dorzolamide/Timolol (Cosopt 2-0.5% Ophth Soln) 1 drop EA EYE BID [facility] Last Admin: 10/18/17 08:04 Dose: 1 drop Ezetimibe (Zetia) 10 mg PO DAILY [facility] Last Admin: 10/18/17 08:03 Dose: 10 mg Glimepiride (Amaryl) 4 mg PO QAM-WM [facility] Last Admin: 10/18/17 08:55 Dose: 4 mg Guaifenesin (Robitussin Sf) 200 mg PO Q4H PRN PRN Reason: Cough Hydralazine HCl (Apresoline) 10 mg SLOW IVP Q4H PRN PRN Reason: Systolic BP > 180 Piperacillin Sod/Tazobactam (Sod 3.375 gm/ Sodium Chloride) 100 mls @ 200 mls/ hr IVPB Q6HR [facility] Last Admin: 10/18/17 05:34 Dose: 100 mls Sodium Chloride (Normal Saline 0.9%) 1,000 mls @ 70 mls/hr IV .[id number] [facility] Last Admin: 10/18/17 05:35 Dose: 1,000 mls Levothyroxine Sodium (Synthroid) 112 mcg PO 0600 [facility] Last Admin: 10/18/17 05:33 Dose: 112 mcg Loperamide HCl (Imodium) 2 mg PO PRN PRN PRN Reason: Diarrhea/Loose Stools Loratadine (Claritin) 10 mg PO DAILYPRN PRN PRN Reason: Sinus Symptoms Magnesium Hydroxide (Milk Of Magnesium) 30 ml PO DAILYPRN PRN PRN Reason: Constipation Mineral Oil/White Petrolatum (Eucerin Cream) 0 gm TOP BIDPRN PRN PRN Reason: Dry Skin Miscellaneous Medication (Pharmacy To Dose) 0 each IVPB PRN PRN PRN Reason: RENAL ABX Pharmacy to Dose Ondansetron HCl (Zofran Odt) 4 mg PO Q6H PRN PRN Reason: Nausea/Vomiting Ondansetron HCl (Zofran) 4 mg IVP Q6H PRN PRN Reason: Nausea/Vomiting Oxybutynin Chloride (Ditropan Xl) 5 mg PO HS [facility] Last Admin: 10/18/17 08:04 Dose: 5 mg Pantoprazole Sodium (Protonix) 40 mg PO DAILY [facility] Last Admin: 10/18/17 08:03 Dose: 40 mg Phenol (Chloraseptic [place] 180 Ml Bot) 0 ml PO PRN PRN PRN Reason: Sore Throat Saccharomyces Boulardii (Florastor) 250 mg PO DAILY [facility] Last Admin: 10/18/17 08:03 Dose: 250 mg Sodium Chloride (Flush - Normal Saline) 10 ml IVF Q12HR [facility] Last Admin: 10/18/17 08:05 Dose: Not Given Sodium Chloride (Flush - Normal Saline) 10 ml IVF PRN PRN PRN Reason: Saline Flush Last Admin: 10/16/17 21:53 Dose: 10 ml Sodium Chloride ([place] Nasal [place] 0.65%) 0 ml EA NARE QIDPRN PRN PRN Reason: Nasal Congestion Sotalol HCl (Betapace) 40 mg PO BID [facility] Last Admin: 10/18/17 08:01 Dose: 40 mg Zolpidem Tartrate (Ambien) 5 mg PO HSPRN PRN PRN Reason: Insomnia
[2017-10-19] MEDS: Levothyroxine Sodium 112 MCG TAB PO SCH (05:52)
[2017-10-19] MEDS: Piperacillin/Tazobactam 3.375 GM in Sodium Chloride 0.9% 100 ML IVPB SCH (05:52)
[2017-10-19] MEDS: Sotalol HCl 80 MG TAB PO SCH (08:42)
[2017-10-19] MEDS: Glimepiride 4 MG TAB PO SCH (08:42)
[2017-10-19] MEDS: Ezetimibe 10 MG TAB PO SCH (08:52)
[2017-10-19] MEDS: Aspirin 81 mg Enteric Coated Tablet PO SCH (08:56)
[2017-10-19] MEDS: Clopidogrel Bisulfate 75 MG TAB PO SCH (08:57)
[2017-10-19] MEDS: Docusate 100 MG CAP PO SCH (08:58)
[2017-10-19] MEDS: Saccharomyces boulardii 250 MG CAP PO SCH (08:58)
[2017-10-19] MEDS: Dorzolamide HCl/Timolol Maleate 2%/0.5% Ophth Soln 10 ml Bottle EA EYE SCH (08:58)
[2017-10-19 12:07] VITALS: BP 113/78; TEMP 97.5
--- NOTE | 2017-10-19 12:18 | DIS ---
DATE OF ADMISSION: 10/16/2017 DATE OF DISCHARGE: 10/19/2017 PRIMARY CARE PHYSICIAN: Rebeca Puga M.D. DISCHARGE DISPOSITION: Home. PRIMARY DISCHARGE DIAGNOSES: 1. Sepsis with acute organ dysfunction, corrected. 2. Urinary tract infection. 3. Hypomagnesemia, replaced. 4. Lactic acidosis, corrected. SECONDARY DISCHARGE DIAGNOSES: Paroxysmal atrial fibrillation; obesity with BMI 33; hypothyroidism; hypertension; glaucoma; gastroesophageal reflux disease; diabetes, type 2; chronic kidney disease, st age 3; coronary artery disease. PRIMARY PROCEDURE/OPERATION: None. RADIOLOGICAL INVESTIGATION: Chest x-ray normal. Renal ultrasound normal. SIGNIFICANT LABORATORY DATA: WBC 9.1, hemoglobin 10.3, platelets 163. Sodium 136, potassium 3.0, BU N 6, creatinine 0.66, calcium 8.0, magnesium 1.8. LFT normal. Urinalysis suggestive of UTI. Urine culture grew E. coli and Klebsiella. Blood culture negative. DISCHARGE MEDICATIONS: Aspirin 81 mg p.o. daily, Plavix 75 mg p.o. daily, dorzolamide with timolol o phthalmic drops each eye b.i.d., Zetia 10 mg daily, glimepiride 4 mg p.o. b.i.d., Synthroid 112 mcg p .o. daily, metformin 2000 mg p.o. at bedtime, omeprazole 40 mg p.o. daily, oxybutynin 5 mg p.o. at be dtime, sotalol 40 mg p.o. b.i.d., Macrobid 100 mg p.o. b.i.d. for 7 days. CONTRAINDICATIONS: None. CODE STATUS: FULL CODE. INPATIENT CONSULTANTS: None. ALLERGIES: CODEINE. DISCHARGE PLAN: Post hospital, the patient will follow up with primary care physician in 1 week. Th e patient already has appointment with Cardiology as an outpatient basis. HOSPITAL COURSE: This is a 77-year-old female with above-mentioned medical problem, who was admitted by Dr. Ryne Ferraro. Please see his H and P for further details. The patient presented to the emerg ency room with a fever. She was also having a little bit of urinary tract infection symptoms and yogi e vague nonproductive cough. Her chest x-ray was normal. Her urinalysis was suggestive of UTI. Inna dick was admitted to medical floor. She was treated with broad-spectrum antibiotic therapy with Zosy n. Based on culture result, we changed to Macrobid upon discharge. Her urine culture grew Klebsiell a and E. coli, but blood culture was negative. Patient was ambulatory. The patient was tolerating p.o. well. She was initially given IV fluid, but subsequently IV fluid was discontinued and her blood pressure remained normal. While in hospital, s he remained afebrile, ambulatory, tolerating p.o. well, and feeling normal to go home. The patient is seen and examined at bedside today. Review of systems reviewed with her and negative. PHYSICAL EXAMINATION: VITAL SIGNS: Currently, temperature 98.0, pulse 85, respiratory rate 20, saturation 99% on room air, blood pressure 92/62, weight 214 pounds. GENERAL: The patient is currently alert, awake, in no obvious acute distress. HEAD: Normocephalic, atraumatic. EYES: Pupils round, reactive to light. Extraocular muscle intact. ENT: Oropharynx within normal limits. Moist mucous membranes. NECK: Supple. No JVD. LUNGS: Clear. CARDIAC: S1 and S2, regular. No murmur, no gallop, no rub. NEUROLOGIC: Nonfocal examination. Overall, the patient is medically stable for discharge today.
== END 2017-10-19 12:15 | disposition home or self-care (01) | DRG 872 ==
LOC: ERS 12:41 → T4-A 21:19
PROVIDERS: ADMIT Internal Medicine; ATTEND Internal Medicine
DX: A41.9 Sepsis, unspecified organism (principal); E87.2 Acidosis; E87.1 Hypo-osmolality and hyponatremia; N39.0 Urinary tract infection, site not specified; E03.9 Hypothyroidism, unspecified; E83.42 Hypomagnesemia; E66.9 Obesity, unspecified; I48.0 Paroxysmal atrial fibrillation; N18.2 Chronic kidney disease, stage 2 (mild); I12.9 Hypertensive chronic kidney disease with stage 1 through stage 4 chronic kidney disease, or unspecified chronic kidney disease; I25.10 Atherosclerotic heart disease of native coronary artery without angina pectoris; E11.22 Type 2 diabetes mellitus with diabetic chronic kidney disease; K21.9 Gastro-esophageal reflux disease without esophagitis; Z68.33 Body mass index [BMI] 33.0-33.9, adult; Z85.3 Personal history of malignant neoplasm of breast; Z90.11 Acquired absence of right breast and nipple; Z88.5 Allergy status to narcotic agent; Z79.02 Long term (current) use of antithrombotics/antiplatelets; Z79.82 Long term (current) use of aspirin; Z79.84 Long term (current) use of oral hypoglycemic drugs; Z79.899 Other long term (current) drug therapy
CPT/HCPCS: 36415; 36416; 71045; 76770; 80053; 81003; 81015; 83605; 83690; 83735; 85025; 87040; 87077; 87086; 87186; 96361; 96365; 96366; 96367; A4216; J0696; J1956; J2543; J3475; J7050

== ENCOUNTER 2018-07-12 09:31 | Outpatient (CLI) | payer MEDICARE ==
[2018-07-12 11:04] LABS: Estimated GFR-MDRD - POC Greater than 90
--- NOTE | 2018-07-12 11:24 | CT ---
CT OF THE ABDOMEN AND PELVIS WITH IV CONTRAST INDICATION: Abdominal wall hernia COMPARISON: Prior exam dated June 28, 2016 FINDINGS: ABDOMEN: Lung bases: Clear Liver: No focal lesion. Gallbladder: Normal appearing. Pancreas: Normal. Adrenal glands: Normal. Spleen: Normal. Kidneys: Normal. Retroperitoneum of the upper abdomen: There are moderate calculation was involving the abdominal aort a. No lymphadenopathy is present. Pelvis: Small and large bowel: There is a anterior abdominal wall hernia, left of midline, involving the left mid abdomen. The hernia sac contains a loop of the distal transverse colon without evidence of obstruction. The hernia mouth measures 6 cm in its greatest axial dimension. There is scattered diver ticula involving the colon without evidence of active diverticulitis. Rectal and perirectal soft tissues:Normal. Bladder: There is mild wall thickening involving the bladder with mild perivesicular fat stranding. Reproductive structures: Normal. Free fluid in pelvis: No free fluid is evident. Lymphadenopathy pelvis: No lymphadenopathy is evident. Vascular structures: Normal. Osseous structures: No acute osseous abnormality. No destructive osteolytic or osteoblastic lesion i s identified. There is scattered degenerative and osteoarthritic changes. There is reticulation involving the subcutaneous fat of the lower anterior abdominal wall suspicious for panniculitis. IMPRESSION: 1. Stable left mid abdominal wall hernia containing an unobstructed loop of distal transverse colon. 2. Wall thickening with paravesicular fat stranding involving the bladder is suspicious for cystitis. Recommend correlation. 3. Reticulation of subcutaneous fat of the lower anterior abdominal wall suspicious for panniculitis. No drainable fluid collection is evident. 4. Colonic diverticulosis
[2018-07-12] MEDS ORDERED: ISOVUE-370 76%-LOCM 1 ML ONE (17:06)
== END 2018-07-12 09:32 | disposition home or self-care (01) ==
LOC: BICCT 09:31
PROVIDERS: ATTEND Internal Medicine Gastroenterology
DX: D50.9 Iron deficiency anemia, unspecified (principal); D50.0 Iron deficiency anemia secondary to blood loss (chronic); K43.9 Ventral hernia without obstruction or gangrene; R10.9 Unspecified abdominal pain; K80.20 Calculus of gallbladder without cholecystitis without obstruction; K63.5 Polyp of colon; K57.30 Diverticulosis of large intestine without perforation or abscess without bleeding
CPT/HCPCS: 74177; 82565; Q9966

== ENCOUNTER 2018-09-07 08:26 | Outpatient (CLI) | payer MEDICARE ==
[2018-09-07 09:51] LABS: Hemoglobin 13.1 g/dL (12.0-16.0); Mean Corpuscular HGB CONC 33.9 g/dL (32.0-36.0); Mean Corpuscular Hemoglobin 31.8 pg (27.0-31.0); Mean Corpuscular Volume 93.9 fL (78.0-98.0); Mean Platelet Volume 8.1 fL (7.4-10.4); Platelet Count 196 thou/uL (130-400); RBC Distribution Width 15.9 % (11.5-14.5); Red Blood Cell (RBC) Count 4.13 mill/uL (4.20-5.40); White Blood Cell (WBC) Count 8.3 thou/uL (4.8-10.8)
[2018-09-07 09:57] LABS: INR-International Normal Ratio 1.4; PTT 32.4 SEC (22.9-36.1); Prothrombin Time 17.2 SEC (12.0-14.7)
[2018-09-07 10:13] LABS: Anion Gap 16 mmol/L (10-20); BUN (Urea Nitrogen) 17 mg/dL (9.8-20.1); Calc. Creatinine Clearance 0 mL/min (70-130); Calcium 9.3 mg/dL (7.8-10.44); Carbon Dioxide 26 mmol/L (23-31); Chloride 100 mmol/L (98-107); Estimated GFR-MDRD 68; Glucose 154 mg/dL (83-110); Potassium 4.1 mmol/L (3.5-5.1); Sodium 138 mmol/L (136-145)
== END 2018-09-07 08:27 | disposition home or self-care (01) ==
LOC: LABBT 08:26
PROVIDERS: ATTEND Internal Medicine Cardiovascular Disease
DX: Z01.818 Encounter for other preprocedural examination (principal); I48.91 Unspecified atrial fibrillation
CPT/HCPCS: 80048; 85027; 85610; 85730; 93005; 93010

== ENCOUNTER 2018-09-13 07:33 | Observation (INO) | payer MEDICARE ==
[2018-09-13] MEDS ORDERED: Heparin 10,000 UNITS/1 ML VIAL ONE ×2 (09:46→11:55)
[2018-09-13] MEDS ORDERED: Fentanyl 100 MCG/2 ML VIAL ONE (10:02)
[2018-09-13] MEDS ORDERED: Heparin 25,000 units/D5W 500 ML ONE (10:56)
[2018-09-13] MEDS ORDERED: Isoproterenol 0.2 MG/1 ML AMP ONE (10:57)
[2018-09-13] MEDS ORDERED: ePHEDrine 50 MG/ML VIAL ONE (11:23)
[2018-09-13] MEDS ORDERED: PROPOFOL 200 MG/20 ML VIAL ONE (11:23)
[2018-09-13] MEDS ORDERED: Heparin 30,000 units/30 ml VIAL ONE (11:23)
[2018-09-13] MEDS ORDERED: Lidocaine 1% PF 5 ML VIAL ONE (11:23)
[2018-09-13] MEDS ORDERED: PHENYLEPHRINE-NS 100 MCG/ML 10 ML SYRINGE ONE (11:23)
[2018-09-13] MEDS ORDERED: Rocuronium Bromide 10 MG/ML (10ML VIAL) ONE (11:23)
[2018-09-13] MEDS ORDERED: Protamine Sulfate 50 MG/5 ML VIAL ONE (14:30)
[2018-09-13] MEDS ORDERED: Polyethylene Glycol 3350 17 GM Packet PO PRN (15:19)
[2018-09-13] MEDS ORDERED: Metamucil PACK PO PRN (15:19)
[2018-09-13] MEDS ORDERED: Loratadine 10 MG TAB PO PRN (15:33)
[2018-09-13] MEDS ORDERED: Ketorolac Tromethamine 30 MG/ML VIAL IVP PRN (15:41)
[2018-09-13 17:52] VITALS: BMI 31.2
[2018-09-13] MEDS: Sucralfate 1 GM TAB PO SCH ×2 (18:06→23:53)
--- NOTE | 2018-09-13 19:55 | OP ---
DATE OF PROCEDURE: 09/13/2018 PROCEDURE PERFORMED: Electrophysiology study and radiofrequency ablation. REASON FOR PROCEDURE: Ms. Chaney is a pleasant 77-year-old woman with prior history of paroxysmal atrial fibrillation, status post left atrial appendage closure with a Watchman device in July 2017, had been maintained on sotalol, but recurrence was noted. Now, she is here for a pulmonary venous isolation procedure. She has been back on anticoagulation with Eliquis. DESCRIPTION OF PROCEDURE: The patient received propofol by Anesthesia specialist. After adequate level of sedation achieved, the left and right femoral veins were prepped, draped, anesthetized using subcutaneous lidocaine, and under ultrasound guidance, both femoral veins were cannulated x2. On the left side, an 11-Mozambican sheath was used to advance the intracardiac echo probe to the right atrium which was in turn used to monitor the transeptal procedure as well as monitor for pericardial effusion. Also, on the left side, an 8-Mozambican short sheath was exchanged to a Preface catheter which was used to advance a DuoDeca catheter into the right atrium and CS positions. On the right side, two 8-Mozambican short sheaths were initially inserted and through this, a ThermoCool SFST catheter was advanced to the right atrium, and 3D map of the right atrium, His bundle, and CS positions were obtained. Following that, the two 8-Mozambican short sheaths were exchanged to 2 SL1 sheaths. IV heparin was administered and monitored throughout the procedure to maintain ACT over 350. With fluro and intracardiac echo monitoring, transseptal puncture was performed using the SL1 sheath and standard Winifred powered sheath. Through the SL1 sheets, a ThermoCool SFST catheter as well as a 20-pole Lasso catheter were advanced to the left atrium. 3D map of the left atrium was performed. Four pulmonary venous isolation was performed and also the posterior was isolated. Due to fractionated signals in the inferior wall, ablation in the inferior wall was also performed. Throughout the case, an esophageal temperature probe was used to monitor the esophageal temperature to avoid excessive heating. Despite these efforts the patient remained in atrial fibrillation, therefore cardioversion was performedand sinus rhythm was achieved. Isuprel was administered and any reconnections were re-ablated. Transient self terminating Atypical atrial flutter was seen at 230 msec cycle length which appears to be atypical, non isthmus dependent. In the end of the case, the patient remained in sinus rhythm following numerical findings were noted. The baseline rhythm is sinus rhythm at 1056 msec cycle length, FL 127, QRS 75, QT 427, HV 63 msec noted. The AV Wenckebach cycle length was 620 msec. VA Wenckebach cycle length was 460 msec. The antegrade Wenckebach cycle was 370 msec. Concentric retrograde VA conduction was seen during LV pacing. No definite dual AV node physiology was noted. Total number of ablations were 65 with duration 28 minutes and 18 seconds at 40 quevedo performed. At the end of the case, cardiac silhouette did not change significantly and the intracardiac echo revealed no change in the pericardial space. CONCLUSION: 1. Successful isolation of all 4 pulmonary veins in the antral area. 2. Posterior wall isolation achieved. 3. Inferior wall ablation also performed. 4. Successful tenriism of rhythm with cardioversion. 5. Atrial flutter self terminating during the case noted. 6. Proximal CS pacing reveals distal to proximal activation pattern suggestive of patent isthmus line from prior CTI ablation. PLAN: Resume anticoagulants. Monitor for recurrent arrhythmias. For now, hold sotalol. Job ID: [id number] [facility]
[2018-09-13] MEDS: Apixaban 5 MG TAB PO SCH (20:49)
[2018-09-13] MEDS: DorzolamidE/Timolol 2%/0.5% Ophth Soln 10 ml Bottle EA EYE SCH (20:54)
[2018-09-13] MEDS ORDERED: metFORMIN 500 MG TAB PO SCH (21:00)
[2018-09-13] MEDS ORDERED: VASCEPA 1GM PO SCH (21:00)
[2018-09-14] MEDS: Sucralfate 1 GM TAB PO SCH ×2 (05:17→11:30)
[2018-09-14] MEDS ORDERED: Levothyroxine Sodium 112 MCG TAB PO SCH (06:00)
[2018-09-14 07:31] VITALS: BP 136/62; TEMP 98
[2018-09-14] MEDS: Apixaban 5 MG TAB PO SCH (08:53)
[2018-09-14] MEDS: DorzolamidE/Timolol 2%/0.5% Ophth Soln 10 ml Bottle EA EYE SCH (08:54)
[2018-09-14] MEDS ORDERED: CULTURELLE PO SCH (09:00)
[2018-09-14] MEDS ORDERED: Baclofen 10 MG TAB PO SCH (09:00)
[2018-09-14] MEDS ORDERED: Cyanocobalamin (Vitamin B-12) 1,000 MCG TAB PO SCH (09:00)
[2018-09-14] MEDS ORDERED: Multivit, Therapeutic 1 TAB PO SCH (09:00)
[2018-09-14] MEDS ORDERED: Meloxicam 15 MG TAB PO SCH (09:00)
--- NOTE | 2018-09-15 00:54 | DIS ---
DATE OF ADMISSION: 09/13/2018 DATE OF DISCHARGE: 09/14/2018 DIAGNOSES: I am discharging Ms. Chaney at our [facility]. Her problems are: 1. Paroxysmal atrial fibrillation despite sotalol use. 2. Status post remote atypical atrial flutter post CTI ablation in the past. 3. Watchman device placement in July 2017 without leak. 4. Status post pulmonary venous isolation and posterior wall ablation on 09/13/2018. 5. Short nonsustained wide-complex run on telemetry, on beta-dayday. 6. History of type 2 diabetes. 7. History of hypertension. ALLERGIES: CODEINE. DISCHARGE MEDICATIONS: Will include: 1. Apixaban 5 mg twice a day. 2. Baclofen. 3. Cetirizine. 4. Cyanocobalamin. 5. Dorzolamide. 6. Iscept. 7. Rhamnosus. 8. Levothyroxine. 9. Meloxicam. 10. Metformin. 11. Multivitamin. 12. Omeprazole. 13. Polyethylene glycol. 14. Psyllium supplements. 15. Carafate 1 g q.6 hours twice a week. 16. Lasix 40 mg p.o. daily p.r.n. with potassium 20 mEq daily p.r.n. 17. Metoprolol succinate 25 mg daily. HOSPITAL COURSE: Ms. Chaney underwent an elective pulmonary venous isolation and posterior wall ablation. She had a total of 65 lesions at 28 minutes and 18 seconds delivered throughout the procedure. She had Vascade closure. She recovered well overnight, remained stable in sinus rhythm. Short nonsustained wide-complex arrhythmia run was seen, self terminating overnight on telemetry. Her vital signs reveal blood pressure 136/62, heart rate 88, respiratory rate 18, and temperature 98 degrees Fahrenheit. PHYSICAL EXAMINATION: GENERAL: Alert and oriented woman, in no apparent distress. NECK: Neck veins not distended. CHEST: Coarse. No crackles. HEART: Heart sounds are regular to rate and rhythm. Left and right femoral venous catheter access sites are without hematoma or reaction. ABDOMEN: Benign. Bowel sounds positive. EXTREMITIES: Lower extremities without edema, clubbing, or cyanosis. DIAGNOSTIC STUDIES: Telemetry strips reviewed as above. ASSESSMENT AND PLAN: Ms. Chaney is a pleasant 77-year-old woman who underwent pulmonary venous isolation and she is stable overnight. At this point, she is stable for discharge. She will be discharged on the medication as above. A routine 6-week followup requested. Job ID: [id number]
--- NOTE | 2018-09-15 16:50 | EKG ---
Test Reason : Blood Pressure : / mmHG Vent. Rate : 092 BPM Atrial Rate : 092 BPM P-R Int : 190 ms QRS Dur : 090 ms QT Int : 390 ms P-R-T Axes : 072 -80 064 degrees QTc Int : 482 ms Normal sinus rhythm Left axis deviation Low voltage QRS RSR' or QR pattern in V1 suggests right ventricular conduction delay Inferior infarct , age undetermined ST elevation, consider early repolarization, pericarditis, or injury * ACUTE MA * Abnormal ECG Confirmed by CHAS CASTANON ([id number]) on 09/15/2018 4:49:50 PM Referred By: TEO Confirmed By:CHAS CASTANON
--- NOTE | 2018-09-15 17:07 | EKG ---
Test Reason : Blood Pressure : / mmHG Vent. Rate : 088 BPM Atrial Rate : 088 BPM P-R Int : 204 ms QRS Dur : 080 ms QT Int : 374 ms P-R-T Axes : 070 -67 081 degrees QTc Int : 452 ms Normal sinus rhythm Left anterior fascicular block Inferior infarct (cited on or before 24-SEP-2017) Anteroseptal infarct (cited on or before 24-SEP-2017) Abnormal ECG Confirmed by CHAS CASTANON ([id number]) on 09/15/2018 5:07:07 PM Referred By: TEO Confirmed By:CHAS CASTANON
== END 2018-09-14 12:22 | disposition home or self-care (01) ==
LOC: CCL 07:33 → 2SW 16:05
PROVIDERS: ADMIT Internal Medicine Cardiovascular Disease; ATTEND Internal Medicine Cardiovascular Disease
PROC: 02583ZZ Destruction of Conduction Mechanism, Percutaneous Approach (ICD-10-PCS; principal; 2018-09-13)
PROC: 02K83ZZ Map Conduction Mechanism, Percutaneous Approach (ICD-10-PCS; 2018-09-13)
PROC: 4A023FZ Measurement of Cardiac Rhythm, Percutaneous Approach (ICD-10-PCS; 2018-09-13)
PROC: 4A0234Z Measurement of Cardiac Electrical Activity, Percutaneous Approach (ICD-10-PCS; 2018-09-13)
DX: I48.0 Paroxysmal atrial fibrillation (principal); I48.92 Unspecified atrial flutter; E11.9 Type 2 diabetes mellitus without complications; I10 Essential (primary) hypertension; E03.9 Hypothyroidism, unspecified; Z79.01 Long term (current) use of anticoagulants; Z79.1 Long term (current) use of non-steroidal anti-inflammatories (NSAID); Z79.84 Long term (current) use of oral hypoglycemic drugs; Z79.899 Other long term (current) drug therapy; Z88.1 Allergy status to other antibiotic agents; Z88.5 Allergy status to narcotic agent; Z98.890 Other specified postprocedural states
CPT/HCPCS: 76942; 82962 ×2; 85347 ×2; 92960; 93005 ×2; 93613; 93622; 93623; 93656; 93662; 96374; C1731; C1732 ×3; C1759; C1769; G0378; 36416; 93010; J1644; J1885; J2001; J2704; J2720; J3010; J3490

== ENCOUNTER → 2018-10-08 | Day surgery (SDC) | payer MEDICARE ==
[2018-10-07 12:17] VITALS: BMI 28.6
== END ==
LOC: CCL 09:22
PROVIDERS: ATTEND Internal Medicine Cardiovascular Disease
DX: I48.91 Unspecified atrial fibrillation (principal); I48.4 Atypical atrial flutter; E11.9 Type 2 diabetes mellitus without complications; I10 Essential (primary) hypertension; E03.9 Hypothyroidism, unspecified; Z53.8 Procedure and treatment not carried out for other reasons; Z79.01 Long term (current) use of anticoagulants; Z79.84 Long term (current) use of oral hypoglycemic drugs; Z79.899 Other long term (current) drug therapy; Z88.1 Allergy status to other antibiotic agents; Z88.5 Allergy status to narcotic agent; Z95.818 Presence of other cardiac implants and grafts

== ENCOUNTER 2018-12-20 10:21 | Emergency (ER) | payer MEDICARE, OTHER ==
[2018-12-20 11:01] LABS: #Eosinphils 0.2 thou/uL (0.0-0.7); #Lymphocytes 1.2 thou/uL (1.20-3.40); #Monocytes 0.5 thou/uL (0.11-0.59); #Neutrophils 5.1 thou/uL (1.40-6.50); %Basophils 0.5 % (0.0-1.0); %Eosinophils 2.3 % (0.0-10.0); %Lymphocytes 17.1 % (21.0-51.0); %Monocytes 6.5 % (0.0-10.0); %Neutrophils 73.6 % (42.0-75.0); Hemoglobin 11.2 g/dL (12.0-16.0); Mean Corpuscular HGB CONC 33.8 g/dL (32.0-36.0); Mean Corpuscular Hemoglobin 31.1 pg (27.0-31.0); Mean Platelet Volume 7.4 fL (7.4-10.4); Platelet Count 257 thou/uL (130-400); RBC Distribution Width 12.4 % (11.5-14.5); Red Blood Cell (RBC) Count 3.59 mill/uL (4.20-5.40)
[2018-12-20 11:07] LABS: Bacteria/HPF None Seen HPF (None Seen); Bilirubin Negative (Negative); Blood, Urine 3+ (Negative); Clarity Turbid (Clear); Glucose, Urine (Dipstick) 70 mg/dL (Negative); Leukocyte Negative Leu/uL (Negative); Nitrite Negative (Negative); Protein, Urine (Dipstick) 600 mg/dL (Neg-Trace); RBC/HPF Greater than 50 HPF (0-3); Squamous Epithelial None Seen HPF (0-3); Urobilinogen Normal mg/dL (Less than 2)
[2018-12-20 11:15] LABS: ALT (SGPT) 10 U/L (8-55); AST (SGOT) 18 U/L (5-34); Alkaline Phosphatase 67 U/L (40-110); Anion Gap 16 mmol/L (10-20); BUN (Urea Nitrogen) 8 mg/dL (9.8-20.1); Bilirubin, Total 0.5 mg/dL (0.2-1.2); Calc. Creatinine Clearance 0 mL/min (70-130); Calcium 8.9 mg/dL (7.8-10.44); Carbon Dioxide 25 mmol/L (23-31); Chloride 102 mmol/L (98-107); Estimated GFR-MDRD 80; Globulin 3.4 g/dL (2.4-3.5); Glucose 181 mg/dL (83-110); Potassium 3.7 mmol/L (3.5-5.1); Protein, Total 7.4 g/dL (6.0-8.3); Sodium 139 mmol/L (136-145)
[2018-12-20 11:17] LABS: WBC/HPF 0-3 HPF (0-3)
== END 2018-12-20 12:40 | disposition home or self-care (01) ==
LOC: ERS 10:21
DX: R31.9 Hematuria, unspecified (principal); R10.9 Unspecified abdominal pain; E03.9 Hypothyroidism, unspecified; E11.9 Type 2 diabetes mellitus without complications; I10 Essential (primary) hypertension; Z79.899 Other long term (current) drug therapy
CPT/HCPCS: 36415; 80053; 81003; 81015; 85025; 99284

== ENCOUNTER 2020-08-03 08:44 | Day surgery (SDC) | payer MEDICARE ==
[2020-08-03] MEDS ORDERED: Sodium Chloride 0.9% 20 ML ONE (09:35)
[2020-08-03] MEDS ORDERED: diphenhydrAMINE 25 MG CAP PO SCH (10:00)
[2020-08-03] MEDS ORDERED: Acetaminophen 500 MG TAB PO SCH (10:00)
[2020-08-03 14:28] VITALS: TEMP 97.8
[2020-08-03 16:21] VITALS: BP 146/62
== END 2020-08-03 16:22 | disposition home or self-care (01) ==
LOC: ONC/OP 08:44
PROVIDERS: ATTEND Internal Medicine Hematology & Oncology
PROC: 30233N1 Transfusion of Nonautologous Red Blood Cells into Peripheral Vein, Percutaneous Approach (ICD-10-PCS; principal; 2020-08-03)
DX: D64.9 Anemia, unspecified (principal); D69.6 Thrombocytopenia, unspecified
CPT/HCPCS: 36430; 86850; 86900; 86901; P9016; Q0163

== ENCOUNTER 2021-03-28 08:15 | Day surgery (SDC) | payer MEDICARE ==
[2021-03-28] MEDS ORDERED: Sodium Chloride 0.9% 10 ML ONE ×2 (08:43)
[2021-03-28] MEDS ORDERED: Acetaminophen 500 MG TAB ONE (08:43)
[2021-03-28] MEDS ORDERED: diphenhydrAMINE 25 MG CAP ONE (08:43)
[2021-03-28] MEDS ORDERED: diphenhydrAMINE 25 MG CAP PO SCH (08:45)
[2021-03-28] MEDS ORDERED: Acetaminophen 500 MG TAB PO SCH (08:45)
[2021-03-28 13:59] VITALS: BP 179/74; TEMP 98.4
== END 2021-03-28 14:33 | disposition home or self-care (01) ==
LOC: ONC/OP 08:15
PROVIDERS: ATTEND Internal Medicine Hematology & Oncology
PROC: 30233N1 Transfusion of Nonautologous Red Blood Cells into Peripheral Vein, Percutaneous Approach (ICD-10-PCS; principal; 2021-03-28)
DX: D64.9 Anemia, unspecified (principal); Z88.1 Allergy status to other antibiotic agents; Z88.5 Allergy status to narcotic agent
CPT/HCPCS: 36430; 86850; 86900; 86901; P9016

== ENCOUNTER 2021-09-26 14:38 | Inpatient (IN) | payer MEDICARE ==
[2021-09-26 15:30] LABS: #Eosinphils 0.1 thou/uL (0.0-0.7); #Lymphocytes 1.9 thou/uL (1.20-3.40); #Monocytes 0.7 thou/uL (0.11-0.59); #Neutrophils 8.4 thou/uL (1.40-6.50); %Basophils 0.3 % (0.0-1.0); %Eosinophils 0.6 % (0.0-10.0); %Lymphocytes 16.9 % (21.0-51.0); %Monocytes 5.9 % (0.0-10.0); %Neutrophils 76.3 % (42.0-75.0); Hemoglobin 13.1 g/dL (12.0-16.0); Mean Corpuscular HGB CONC 32.2 g/dL (32.0-36.0); Mean Corpuscular Hemoglobin 30.2 pg (27.0-31.0); Mean Corpuscular Volume 93.9 fL (78.0-98.0); Mean Platelet Volume 8.3 fL (7.4-10.4); Platelet Count 291 thou/uL (130-400); RBC Distribution Width 13.3 % (11.5-14.5); Red Blood Cell (RBC) Count 4.34 mill/uL (4.20-5.40)
[2021-09-26 15:40] LABS: Bilirubin Negative (Negative); Blood, Urine 2+ (Negative); Clarity Extra Turbid (Clear); Glucose, Urine (Dipstick) Normal (Negative); Ketone, Urine 20 mg/dL (Negative); Leukocyte 500 Leu/uL (Negative); Nitrite Negative (Negative); Protein, Urine (Dipstick) 200 mg/dL (Neg-Trace); Specific Gravity, Urine 1.019 (1.002-1.036); Urobilinogen 3 mg/dL (Less than 2); WBC/HPF Greater than 50 HPF (0-3); pH, Urine 5.5 (5.0-9.0)
[2021-09-26 15:48] LABS: Bacteria/HPF 4+ HPF (None Seen)
[2021-09-26 16:00] LABS: ALT (SGPT) 30 U/L (8-55); AST (SGOT) 47 U/L (5-34); Albumin 3.9 g/dL (3.4-4.8); Alkaline Phosphatase 68 U/L (40-110); Anion Gap 17 mmol/L (10-20); BUN (Urea Nitrogen) 14 mg/dL (9.8-20.1); Bilirubin, Total 0.9 mg/dL (0.2-1.2); CK (CPK) 562 U/L (29-168); Calc. Creatinine Clearance 0 mL/min (70-130); Calcium 8.7 mg/dL (7.8-10.44); Carbon Dioxide 26 mmol/L (23-31); Chloride 101 mmol/L (98-107); Estimated GFR 79; Globulin 3.9 g/dL (2.4-3.5); Glucose 165 mg/dL (83-110); Protein, Total 7.8 g/dL (5.8-8.1); Sodium 140 mmol/L (136-145)
[2021-09-26] MEDS ORDERED: cefTRIAXone\\ROCEPHIN 2 GM VIAL ONE (16:15)
[2021-09-26] MEDS ORDERED: Ondansetron PF 4 MG/2 ML Vial IVP PRN (17:28)
[2021-09-26] MEDS ORDERED: Acetaminophen 325 MG TAB PO PRN (17:28)
[2021-09-26] MEDS ORDERED: Senokot S 8.6-50 MG TAB PO PRN (17:28)
[2021-09-26] MEDS ORDERED: Sodium Chloride 0.9% 1,000 ML IV SCH (17:30)
[2021-09-26] MEDS ORDERED: Metoprolol Tartrate 5 MG/5 ML VIAL IVP SCH ×2 (18:00→23:00)
[2021-09-26 19:23] LABS: SARS-CoV-2 NAA Rapid Test Not Detected (NotDetected)
[2021-09-26] MEDS ORDERED: Apixaban 2.5 MG TAB PO SCH (21:00)
[2021-09-26] MEDS ORDERED: Apixaban 5 MG TAB PO SCH (21:00)
[2021-09-26] MEDS: Sodium Chloride 0.9% 1,000 ML IV SCH (21:55)
[2021-09-26] MEDS: Famotidine 20 MG TAB PO SCH (22:04)
[2021-09-27 05:12] LABS: ALT (SGPT) 28 U/L (8-55); AST (SGOT) 51 U/L (5-34); Albumin 3.4 g/dL (3.4-4.8); Alkaline Phosphatase 64 U/L (40-110); Anion Gap 19 mmol/L (10-20); BUN (Urea Nitrogen) 9 mg/dL (9.8-20.1); Bilirubin, Total 0.8 mg/dL (0.2-1.2); Calc. Creatinine Clearance 83 mL/min (70-130); Calcium 8.2 mg/dL (7.8-10.44); Carbon Dioxide 21 mmol/L (23-31); Chloride 101 mmol/L (98-107); Estimated GFR 84; Globulin 4.3 g/dL (2.4-3.5); Glucose 162 mg/dL (83-110); Potassium 3.8 mmol/L (3.5-5.1); Protein, Total 7.7 g/dL (5.8-8.1); Sodium 137 mmol/L (136-145)
[2021-09-27 05:40] LABS: Hemoglobin 13.2 g/dL (12.0-16.0); MDiff Complete? YES; Mean Corpuscular Hemoglobin 30.4 pg (27.0-31.0); Mean Platelet Volume 8.4 fL (7.4-10.4); Platelet Count 253 thou/uL (130-400); RBC Distribution Width 13.4 % (11.5-14.5); Red Blood Cell (RBC) Count 4.32 mill/uL (4.20-5.40); White Blood Cell (WBC) Count 12.2 thou/uL (4.8-10.8)
[2021-09-27 05:41] LABS: Band 2 % (5-11); Lymphocytes 7 % (21-51); Monocytes 2 % (0-10); Neutrophil 89 % (42-75); Platelet Morphology Comment Appears Adequate; RBC Morphology Normal
[2021-09-27] MEDS ORDERED: Metoprolol Tartrate 5 MG/5 ML VIAL IVP SCH (06:00)
[2021-09-27] MEDS: Sodium Chloride 0.9% 1,000 ML IV SCH ×3 (06:03→18:09)
[2021-09-27] MEDS ORDERED: Enoxaparin Sodium 30 MG/0.3 ML SYRINGE SC SCH (09:00)
[2021-09-27] MEDS: Famotidine 20 MG TAB PO SCH ×2 (09:18→22:13)
[2021-09-27] MEDS: Enoxaparin Sodium 40 MG/0.4 ML SYRINGE SC SCH (09:19)
[2021-09-27] MEDS: cefTRIAXone\\ROCEPHIN 1 GM in Sodium Chloride 0.9% 100 ML IVPB SCH (17:36)
[2021-09-28] MEDS: Sodium Chloride 0.9% 1,000 ML IV SCH ×2 (07:16→20:05)
[2021-09-28] MEDS: Enoxaparin Sodium 40 MG/0.4 ML SYRINGE SC SCH (10:28)
[2021-09-28] MEDS: Famotidine 20 MG TAB PO SCH ×2 (10:30→20:54)
[2021-09-28] MEDS: cefTRIAXone\\ROCEPHIN 1 GM in Sodium Chloride 0.9% 100 ML IVPB SCH (20:06)
[2021-09-29] MEDS: Sodium Chloride 0.9% 1,000 ML IV SCH ×2 (05:43→11:08)
[2021-09-29] MEDS: Enoxaparin Sodium 40 MG/0.4 ML SYRINGE SC SCH (09:17)
[2021-09-29] MEDS: Famotidine 20 MG TAB PO SCH ×2 (09:19→21:15)
[2021-09-29 09:46] LABS: Anion Gap 15 mmol/L (10-20); BUN (Urea Nitrogen) 6 mg/dL (9.8-20.1); Calc. Creatinine Clearance 99 mL/min (70-130); Calcium 8.3 mg/dL (7.8-10.44); Carbon Dioxide 28 mmol/L (23-31); Chloride 100 mmol/L (98-107); Estimated GFR 89; Glucose 163 mg/dL (83-110); Sodium 140 mmol/L (136-145)
[2021-09-29 09:49] LABS: Potassium 2.7 mmol/L (3.5-5.1)
[2021-09-29 10:33] LABS: %Basophils 0.5 % (0.0-1.0); %Eosinophils 4.7 % (0.0-10.0); %Lymphocytes 18.8 % (21.0-51.0); %Monocytes 9.9 % (0.0-10.0); Eosinophils 4 % (0-10); Hemoglobin 13.1 g/dL (12.0-16.0); Lymphocytes 12 % (21-51); MDiff Complete? YES; Mean Corpuscular HGB CONC 31.9 g/dL (32.0-36.0); Mean Corpuscular Hemoglobin 29.7 pg (27.0-31.0); Mean Platelet Volume 7.5 fL (7.4-10.4); Monocytes 4 % (0-10); Neutrophil 80 % (42-75); Platelet Count 227 thou/uL (130-400); Platelet Morphology Comment Appears Adequate; RBC Distribution Width 13.1 % (11.5-14.5); RBC Morphology Normal; Red Blood Cell (RBC) Count 4.42 mill/uL (4.20-5.40); White Blood Cell (WBC) Count 6.3 thou/uL (4.8-10.8)
[2021-09-29] MEDS: Potassium Chloride 20 MEQ TAB PO SCH ×2 (11:07→17:41)
[2021-09-29] MEDS ORDERED: Lisinopril 5 MG TAB PO SCH ×2 (12:45→13:00)
[2021-09-29] MEDS ORDERED: Iopamidol-370 76% 500 ML 1 ML ONE (15:00)
[2021-09-29 17:19] LABS: Troponin I Less than 0.010 ng/mL (< 0.028)
[2021-09-29 17:23] LABS: Potassium 2.9 mmol/L (3.5-5.1)
[2021-09-29] MEDS: cefTRIAXone\\ROCEPHIN 1 GM in Sodium Chloride 0.9% 100 ML IVPB SCH (17:41)
[2021-09-29 18:15] LABS: INR-International Normal Ratio 1.1; Prothrombin Time 14.2 sec (12.0-14.7)
[2021-09-29 18:16] LABS: PTT 31.6 sec (22.9-36.1)
[2021-09-29 18:36] LABS: Magnesium 1.4 mg/dL (1.6-2.6)
[2021-09-29] MEDS ORDERED: Magnesium Sulfate In Water 4 GM in Premix Bag 1 BAG IVPB SCH (19:15)
[2021-09-29] MEDS: Aspirin 81 mg Enteric Coated Tablet PO SCH (21:15)
[2021-09-29] MEDS ORDERED: Potassium Chloride 20 MEQ TAB PO SCH (22:00)
[2021-09-30 04:48] LABS: #Eosinphils 0.3 thou/uL (0.0-0.7); #Lymphocytes 1.3 thou/uL (1.20-3.40); #Monocytes 0.4 thou/uL (0.11-0.59); #Neutrophils 3.9 thou/uL (1.40-6.50); %Basophils 0.8 % (0.0-1.0); %Eosinophils 5.4 % (0.0-10.0); %Monocytes 7.4 % (0.0-10.0); %Neutrophils 64.4 % (42.0-75.0); Hemoglobin 11.7 g/dL (12.0-16.0); Mean Corpuscular HGB CONC 32.9 g/dL (32.0-36.0); Mean Corpuscular Hemoglobin 30.6 pg (27.0-31.0); Mean Corpuscular Volume 93.1 fL (78.0-98.0); Mean Platelet Volume 7.8 fL (7.4-10.4); Platelet Count 248 thou/uL (130-400); RBC Distribution Width 13.3 % (11.5-14.5); Red Blood Cell (RBC) Count 3.81 mill/uL (4.20-5.40)
[2021-09-30 05:13] LABS: Anion Gap 14 mmol/L (10-20); BUN (Urea Nitrogen) 8 mg/dL (9.8-20.1); Calc. Creatinine Clearance 87 mL/min (70-130); Calcium 8.2 mg/dL (7.8-10.44); Carbon Dioxide 28 mmol/L (23-31); Chloride 101 mmol/L (98-107); Estimated GFR 85; Glucose 191 mg/dL (83-110); Magnesium 2.3 mg/dL (1.6-2.6); Potassium 3.6 mmol/L (3.5-5.1); Sodium 139 mmol/L (136-145)
[2021-09-30] MEDS: Levothyroxine Sodium 125 MCG TAB PO SCH (05:23)
[2021-09-30] MEDS ORDERED: Levothyroxine Sodium 112 MCG TAB PO SCH (09:00)
[2021-09-30] MEDS ORDERED: glipiZIDE 5 MG TAB PO SCH (09:00)
[2021-09-30] MEDS ORDERED: Ezetimibe 10 MG TAB PO SCH (09:00)
[2021-09-30] MEDS ORDERED: Non-Formulary Item 1 EACH (Multivitamin [Multivitamins] 1 CAP Capsule) PO SCH (09:00)
[2021-09-30] MEDS: Aspirin 81 mg Enteric Coated Tablet PO SCH ×2 (10:08→21:05)
[2021-09-30] MEDS: Enoxaparin Sodium 40 MG/0.4 ML SYRINGE SC SCH (10:08)
[2021-09-30] MEDS: glipiZIDE 5 MG TAB PO SCH (10:09)
[2021-09-30] MEDS: Ezetimibe 10 MG TAB PO SCH (10:09)
[2021-09-30] MEDS: Famotidine 20 MG TAB PO SCH ×2 (10:09→21:05)
[2021-09-30] MEDS: Escitalopram Oxalate 10 mg Tablet PO SCH (10:09)
[2021-09-30] MEDS: Lisinopril 5 MG TAB PO SCH (10:10)
[2021-09-30] MEDS: Multivit, Therapeutic 1 TAB PO SCH (10:10)
[2021-09-30] MEDS ORDERED: Potassium Chloride 20 MEQ TAB PO SCH (13:00)
[2021-09-30] MEDS: cefTRIAXone\\ROCEPHIN 1 GM in Sodium Chloride 0.9% 100 ML IVPB SCH (16:48)
[2021-10-01 04:50] LABS: Anion Gap 12 mmol/L (10-20); BUN (Urea Nitrogen) 8 mg/dL (9.8-20.1); Calc. Creatinine Clearance 91 mL/min (70-130); Calcium 8.3 mg/dL (7.8-10.44); Carbon Dioxide 29 mmol/L (23-31); Chloride 103 mmol/L (98-107); Estimated GFR 87; Glucose 156 mg/dL (83-110); Magnesium 1.8 mg/dL (1.6-2.6); Potassium 3.3 mmol/L (3.5-5.1); Sodium 141 mmol/L (136-145)
[2021-10-01] MEDS: Levothyroxine Sodium 125 MCG TAB PO SCH (06:19)
[2021-10-01] MEDS ORDERED: Potassium Chloride 20 MEQ TAB PO SCH (08:00)
[2021-10-01] MEDS: Enoxaparin Sodium 40 MG/0.4 ML SYRINGE SC SCH (09:58)
[2021-10-01] MEDS: Ezetimibe 10 MG TAB PO SCH (09:58)
[2021-10-01] MEDS: glipiZIDE 5 MG TAB PO SCH (09:58)
[2021-10-01] MEDS: Famotidine 20 MG TAB PO SCH ×2 (09:59→21:11)
[2021-10-01] MEDS: Clopidogrel Bisulfate 75 MG TAB PO SCH (09:59)
[2021-10-01] MEDS: Escitalopram Oxalate 10 mg Tablet PO SCH (09:59)
[2021-10-01] MEDS: Aspirin 81 mg Enteric Coated Tablet PO SCH ×2 (09:59→21:11)
[2021-10-01] MEDS: Lisinopril 5 MG TAB PO SCH (09:59)
[2021-10-01] MEDS: Multivit, Therapeutic 1 TAB PO SCH (09:59)
[2021-10-01] MEDS: cefTRIAXone\\ROCEPHIN 1 GM in Sodium Chloride 0.9% 100 ML IVPB SCH (17:25)
[2021-10-02] MEDS: Levothyroxine Sodium 125 MCG TAB PO SCH (06:14)
[2021-10-02] MEDS: glipiZIDE 5 MG TAB PO SCH (09:37)
[2021-10-02] MEDS: Ezetimibe 10 MG TAB PO SCH (09:37)
[2021-10-02] MEDS: Aspirin 81 mg Enteric Coated Tablet PO SCH ×2 (09:37→21:07)
[2021-10-02] MEDS: Multivit, Therapeutic 1 TAB PO SCH (09:38)
[2021-10-02] MEDS: Clopidogrel Bisulfate 75 MG TAB PO SCH (09:38)
[2021-10-02] MEDS: Famotidine 20 MG TAB PO SCH ×2 (09:38→21:07)
[2021-10-02] MEDS: Lisinopril 5 MG TAB PO SCH (09:38)
[2021-10-02] MEDS: Escitalopram Oxalate 10 mg Tablet PO SCH (09:38)
[2021-10-02] MEDS: Enoxaparin Sodium 40 MG/0.4 ML SYRINGE SC SCH (11:28)
[2021-10-02] MEDS: cefTRIAXone\\ROCEPHIN 1 GM in Sodium Chloride 0.9% 100 ML IVPB SCH (16:59)
[2021-10-02] MEDS ORDERED: HumaLOG 300 UNITS/3 ML VIAL SC PRN (19:00)
[2021-10-02] MEDS ORDERED: Dextrose 5% in Water 1,000 ML IV PRN (19:00)
[2021-10-02] MEDS ORDERED: Dextrose 50% Abboject 50 ML SYRINGE IVP PRN (19:00)
[2021-10-02] MEDS: Lisinopril 10 MG TAB PO SCH (21:07)
[2021-10-03 05:10] LABS: Calcium 8.9 mg/dL (7.8-10.44); Chloride 98 mmol/L (98-107); Potassium 4.5 mmol/L (3.5-5.1); Sodium 132 mmol/L (136-145)
[2021-10-03 05:11] LABS: Glucose 176 mg/dL (83-110)
[2021-10-03 05:12] LABS: Carbon Dioxide 17 mmol/L (23-31)
[2021-10-03 05:14] LABS: Calc. Creatinine Clearance 82 mL/min (70-130); Estimated GFR 80
[2021-10-03 05:15] LABS: BUN (Urea Nitrogen) 8 mg/dL (9.8-20.1)
[2021-10-03] MEDS: Levothyroxine Sodium 125 MCG TAB PO SCH ×2 (05:53→07:56)
[2021-10-03 06:59] LABS: Anion Gap 22 mmol/L (10-20)
[2021-10-03] MEDS: glipiZIDE 5 MG TAB PO SCH (09:28)
[2021-10-03] MEDS: Multivit, Therapeutic 1 TAB PO SCH (09:28)
[2021-10-03] MEDS: Enoxaparin Sodium 40 MG/0.4 ML SYRINGE SC SCH (09:28)
[2021-10-03] MEDS: Famotidine 20 MG TAB PO SCH (09:29)
[2021-10-03] MEDS: Escitalopram Oxalate 10 mg Tablet PO SCH (09:29)
[2021-10-03] MEDS: Clopidogrel Bisulfate 75 MG TAB PO SCH (09:29)
[2021-10-03] MEDS: Ezetimibe 10 MG TAB PO SCH (09:29)
[2021-10-03] MEDS: Aspirin 81 mg Enteric Coated Tablet PO SCH ×2 (09:29→21:35)
[2021-10-03] MEDS: Lisinopril 10 MG TAB PO SCH (09:29)
[2021-10-03 13:04] LABS: Actual Bicarbonate (HCO3a) 26.8 mEq/L (22-28); Base Excess (BEa) 4.1 mEq/L (-2.0 to +3.0); Calcium, Ionized (arterial) 1.09 mmol/L (1.12-1.30); Carboxyhemoglobin (COHb) 0.6 gm% (0.0-3.0); Hemoglobin (Hb) 13.1 g/dL (12.0-16.0); O2 Tension (PaO2), arterial 78.9 mmHg (> 60.0); Potassium - ABG Lab 3.74 mmol/L (3.70-5.30); pH, Arterial 7.52 (7.35-7.45)
[2021-10-03 13:07] LABS: Puncture Site LRA
[2021-10-03] MEDS ORDERED: Sodium Chloride 0.9% 1,000 ML IV SCH (19:00)
[2021-10-03 20:27] LABS: Bacteria/HPF None Seen HPF (None Seen); Bilirubin Negative (Negative); Blood, Urine Negative (Negative); Clarity Clear (Clear); Glucose, Urine (Dipstick) Normal (Negative); Ketone, Urine Negative (Negative); Leukocyte 25 Leu/uL (Negative); Nitrite Negative (Negative); Protein, Urine (Dipstick) 10 mg/dL (Neg-Trace); RBC/HPF 0-3 HPF (0-3); Specific Gravity, Urine 1.011 (1.002-1.036); Squamous Epithelial 0-3 HPF (0-3); Urobilinogen Normal mg/dL (Less than 2); WBC/HPF 0-3 HPF (0-3); pH, Urine 7.5 (5.0-9.0)
[2021-10-03] MEDS: Famotidine/PF 20 mg/2ml Vial SLOW IVP SCH (21:33)
[2021-10-04] MEDS: Metoprolol Tartrate 5 MG/5 ML VIAL IVP SCH ×3 (01:09→12:39)
[2021-10-04] MEDS: Levothyroxine Sodium 125 MCG TAB PO SCH (06:37)
[2021-10-04 07:23] LABS: Mean Corpuscular HGB CONC 33.6 g/dL (32.0-36.0); Mean Platelet Volume 7.2 fL (7.4-10.4); Platelet Count 227 thou/uL (130-400); RBC Distribution Width 13.3 % (11.5-14.5); Red Blood Cell (RBC) Count 3.89 mill/uL (4.20-5.40); White Blood Cell (WBC) Count 3.6 thou/uL (4.8-10.8)
[2021-10-04 07:42] LABS: ALT (SGPT) 65 U/L (8-55); AST (SGOT) 125 U/L (5-34); Albumin 3.3 g/dL (3.4-4.8); Alkaline Phosphatase 75 U/L (40-110); Anion Gap 12 mmol/L (10-20); BUN (Urea Nitrogen) 10 mg/dL (9.8-20.1); Bilirubin, Total 0.6 mg/dL (0.2-1.2); CRP (Inflammatory) 0.86 mg/dL (= or < 0.5); Calc. Creatinine Clearance 89 mL/min (70-130); Calcium 8.2 mg/dL (7.8-10.44); Carbon Dioxide 27 mmol/L (23-31); Chloride 95 mmol/L (98-107); Estimated GFR 87; Globulin 3.5 g/dL (2.4-3.5); Glucose 152 mg/dL (83-110); Potassium 3.6 mmol/L (3.5-5.1); Protein, Total 6.8 g/dL (5.8-8.1); Sodium 130 mmol/L (136-145)
[2021-10-04 07:55] LABS: Anion Gap 15 mmol/L (10-20); BUN (Urea Nitrogen) 10 mg/dL (9.8-20.1); Calc. Creatinine Clearance 89 mL/min (70-130); Calcium 8.2 mg/dL (7.8-10.44); Carbon Dioxide 24 mmol/L (23-31); Chloride 96 mmol/L (98-107); Estimated GFR 87; Glucose 155 mg/dL (83-110); Potassium 3.6 mmol/L (3.5-5.1); Sodium 131 mmol/L (136-145)
[2021-10-04] MEDS ORDERED: Lisinopril 20 MG TAB PO SCH (09:00)
[2021-10-04 10:05] LABS: Band 6 % (5-11); Lymphocytes 34 % (21-51); MDiff Complete? YES; Monocytes 27 % (0-10); Neutrophil 33 % (42-75); Platelet Morphology Comment Appears Adequate; Polychromasia SLIGHT = 2-3 cells (100X) (0-2/hpf)
[2021-10-04] MEDS: Aspirin 81 mg Enteric Coated Tablet PO SCH ×2 (10:45→21:09)
[2021-10-04] MEDS: Enoxaparin Sodium 40 MG/0.4 ML SYRINGE SC SCH (10:46)
[2021-10-04] MEDS: Multivit, Therapeutic 1 TAB PO SCH (10:46)
[2021-10-04] MEDS: Escitalopram Oxalate 10 mg Tablet PO SCH (10:46)
[2021-10-04] MEDS: Famotidine/PF 20 mg/2ml Vial SLOW IVP SCH ×2 (10:46→21:10)
[2021-10-04] MEDS: Acetaminophen 650 MG/20.3 ML UDCUP PO PRN (13:22)
[2021-10-04] MEDS: Lisinopril 10 MG TAB PO SCH (21:09)
[2021-10-04] MEDS: Famotidine 20 MG TAB PO SCH (21:10)
[2021-10-05] MEDS: Levothyroxine Sodium 125 MCG TAB PO SCH (06:07)
[2021-10-05] MEDS: HumaLOG 300 UNITS/3 ML VIAL SC PRN (06:16)
[2021-10-05] MEDS: Escitalopram Oxalate 10 mg Tablet PO SCH (09:07)
[2021-10-05] MEDS: Multivit, Therapeutic 1 TAB PO SCH (09:07)
[2021-10-05] MEDS: Aspirin 81 mg Enteric Coated Tablet PO SCH ×2 (09:07→20:44)
[2021-10-05] MEDS: glipiZIDE 5 MG TAB PO SCH (09:07)
[2021-10-05] MEDS: Ezetimibe 10 MG TAB PO SCH (09:07)
[2021-10-05] MEDS: Clopidogrel Bisulfate 75 MG TAB PO SCH (09:07)
[2021-10-05] MEDS: Famotidine 20 MG TAB PO SCH ×2 (09:07→20:44)
[2021-10-05] MEDS: Lisinopril 10 MG TAB PO SCH ×2 (09:08→20:44)
[2021-10-05] MEDS: Enoxaparin Sodium 40 MG/0.4 ML SYRINGE SC SCH (09:08)
[2021-10-05] MEDS: Famotidine/PF 20 mg/2ml Vial SLOW IVP SCH ×2 (09:08→20:44)
[2021-10-05] MEDS: Lactated Ringer's 1,000 ML IV SCH (14:28)
[2021-10-06] MEDS ORDERED: Vancomycin 25 MG/ML Oral SOLN PO SCH (03:00)
[2021-10-06] MEDS: Lactated Ringer's 1,000 ML IV SCH ×2 (03:21→17:35)
[2021-10-06 04:46] LABS: #Lymphocytes 1.7 thou/uL (1.20-3.40); #Monocytes 0.5 thou/uL (0.11-0.59); #Neutrophils 2.5 thou/uL (1.40-6.50); %Basophils 0.6 % (0.0-1.0); %Eosinophils 0.5 % (0.0-10.0); %Lymphocytes 35.3 % (21.0-51.0); %Monocytes 11.5 % (0.0-10.0); Hemoglobin 11.3 g/dL (12.0-16.0); Mean Corpuscular HGB CONC 32.6 g/dL (32.0-36.0); Mean Corpuscular Volume 92.1 fL (78.0-98.0); Mean Platelet Volume 7.9 fL (7.4-10.4); Platelet Count 215 thou/uL (130-400); RBC Distribution Width 13.4 % (11.5-14.5); Red Blood Cell (RBC) Count 3.77 mill/uL (4.20-5.40); White Blood Cell (WBC) Count 4.7 thou/uL (4.8-10.8)
[2021-10-06 05:08] LABS: Anion Gap 16 mmol/L (10-20); BUN (Urea Nitrogen) 22 mg/dL (9.8-20.1); Calc. Creatinine Clearance 74 mL/min (70-130); Calcium 8.2 mg/dL (7.8-10.44); Carbon Dioxide 23 mmol/L (23-31); Chloride 98 mmol/L (98-107); Estimated GFR 73; Glucose 144 mg/dL (83-110); Potassium 3.3 mmol/L (3.5-5.1); Sodium 134 mmol/L (136-145)
[2021-10-06] MEDS: Levothyroxine Sodium 125 MCG TAB PO SCH (05:44)
[2021-10-06] MEDS ORDERED: Potassium Chloride 20 MEQ TAB PO SCH (09:00)
[2021-10-06] MEDS: glipiZIDE 5 MG TAB PO SCH (09:21)
[2021-10-06] MEDS: Aspirin 81 mg Enteric Coated Tablet PO SCH ×2 (09:21→21:15)
[2021-10-06] MEDS: Enoxaparin Sodium 40 MG/0.4 ML SYRINGE SC SCH (09:22)
[2021-10-06] MEDS: Clopidogrel Bisulfate 75 MG TAB PO SCH (09:22)
[2021-10-06] MEDS: Escitalopram Oxalate 10 mg Tablet PO SCH (09:22)
[2021-10-06] MEDS: Ezetimibe 10 MG TAB PO SCH (09:22)
[2021-10-06] MEDS: Famotidine 20 MG TAB PO SCH ×2 (09:23→21:15)
[2021-10-06] MEDS: Multivit, Therapeutic 1 TAB PO SCH (09:23)
[2021-10-06] MEDS: Vancomycin 25 MG/ML Oral SOLN PO SCH ×2 (12:38→17:33)
[2021-10-06] MEDS: HumaLOG 300 UNITS/3 ML VIAL SC PRN (12:38)
[2021-10-06] MEDS: Famotidine/PF 20 mg/2ml Vial SLOW IVP SCH ×2 (14:59→21:33)
[2021-10-06] MEDS: Acetaminophen 650 MG/20.3 ML UDCUP PO PRN ×2 (15:52→21:15)
[2021-10-07] MEDS: Vancomycin 25 MG/ML Oral SOLN PO SCH ×4 (00:45→20:33)
[2021-10-07] MEDS: Levothyroxine Sodium 125 MCG TAB PO SCH (05:37)
[2021-10-07] MEDS: Lactated Ringer's 1,000 ML IV SCH ×3 (05:37→20:40)
[2021-10-07] MEDS: Famotidine 20 MG TAB PO SCH ×2 (08:02→20:03)
[2021-10-07] MEDS: Clopidogrel Bisulfate 75 MG TAB PO SCH (08:02)
[2021-10-07] MEDS: Ezetimibe 10 MG TAB PO SCH (08:02)
[2021-10-07] MEDS: Escitalopram Oxalate 10 mg Tablet PO SCH (08:02)
[2021-10-07] MEDS: Aspirin 81 mg Enteric Coated Tablet PO SCH ×2 (08:02→20:03)
[2021-10-07] MEDS: Enoxaparin Sodium 40 MG/0.4 ML SYRINGE SC SCH (08:02)
[2021-10-07] MEDS: glipiZIDE 5 MG TAB PO SCH (08:02)
[2021-10-07] MEDS: Multivit, Therapeutic 1 TAB PO SCH (08:02)
[2021-10-07 08:53] VITALS: BMI 28.5
[2021-10-07] MEDS: Famotidine/PF 20 mg/2ml Vial SLOW IVP SCH ×2 (10:07→20:03)
[2021-10-07] MEDS ORDERED: Potassium Chloride 20 MEQ TAB PO SCH (16:45)
[2021-10-07] MEDS: cefTRIAXone\\ROCEPHIN 1 GM in Sodium Chloride 0.9% 100 ML IVPB SCH (17:40)
[2021-10-07] MEDS: Acetaminophen 650 MG/20.3 ML UDCUP PO PRN (20:33)
[2021-10-08] MEDS: Vancomycin 25 MG/ML Oral SOLN PO SCH ×5 (01:27→23:36)
[2021-10-08] MEDS: Levothyroxine Sodium 125 MCG TAB PO SCH (05:50)
[2021-10-08] MEDS: glipiZIDE 5 MG TAB PO SCH (08:54)
[2021-10-08] MEDS: Famotidine/PF 20 mg/2ml Vial SLOW IVP SCH ×2 (08:54→20:38)
[2021-10-08] MEDS: Ezetimibe 10 MG TAB PO SCH (08:54)
[2021-10-08] MEDS: Famotidine 20 MG TAB PO SCH ×2 (08:54→20:38)
[2021-10-08] MEDS: Clopidogrel Bisulfate 75 MG TAB PO SCH (08:55)
[2021-10-08] MEDS: Multivit, Therapeutic 1 TAB PO SCH (08:55)
[2021-10-08] MEDS: Enoxaparin Sodium 40 MG/0.4 ML SYRINGE SC SCH (08:55)
[2021-10-08] MEDS: Aspirin 81 mg Enteric Coated Tablet PO SCH ×2 (08:55→20:38)
[2021-10-08] MEDS: Escitalopram Oxalate 10 mg Tablet PO SCH (08:55)
[2021-10-08] MEDS: Lactated Ringer's 1,000 ML IV SCH ×2 (08:57→21:00)
[2021-10-08] MEDS: HumaLOG 300 UNITS/3 ML VIAL SC PRN (13:08)
[2021-10-08] MEDS: cefTRIAXone\\ROCEPHIN 1 GM in Sodium Chloride 0.9% 100 ML IVPB SCH (16:20)
[2021-10-08] MEDS: Acetaminophen 650 MG/20.3 ML UDCUP PO PRN (16:21)
[2021-10-09] MEDS: Acetaminophen 650 MG/20.3 ML UDCUP PO PRN (01:11)
[2021-10-09] MEDS: Vancomycin 25 MG/ML Oral SOLN PO SCH ×2 (07:16→12:27)
[2021-10-09] MEDS: Levothyroxine Sodium 125 MCG TAB PO SCH (07:16)
[2021-10-09] MEDS: Enoxaparin Sodium 40 MG/0.4 ML SYRINGE SC SCH (08:34)
[2021-10-09] MEDS: glipiZIDE 5 MG TAB PO SCH (08:35)
[2021-10-09] MEDS: Multivit, Therapeutic 1 TAB PO SCH (08:35)
[2021-10-09] MEDS: Escitalopram Oxalate 10 mg Tablet PO SCH (08:35)
[2021-10-09] MEDS: Famotidine 20 MG TAB PO SCH (08:35)
[2021-10-09] MEDS: Ezetimibe 10 MG TAB PO SCH (08:35)
[2021-10-09] MEDS: Aspirin 81 mg Enteric Coated Tablet PO SCH (08:35)
[2021-10-09] MEDS: Clopidogrel Bisulfate 75 MG TAB PO SCH (08:35)
[2021-10-09] MEDS: Famotidine/PF 20 mg/2ml Vial SLOW IVP SCH (08:36)
[2021-10-09 08:37] VITALS: BP 146/75; TEMP 98.1
[2021-10-09] MEDS: Lactated Ringer's 1,000 ML IV SCH (12:32)
== END 2021-10-09 16:25 | DRG 871 ==
LOC: SUATTDRO 14:38 → ERS 14:38 → 2NO 17:28 → T4-B 10-06 23:25
PROVIDERS: ADMIT Student in an Organized Health Care Education/Training Program; ATTEND Internal Medicine
PROC: 3E03329 Introduction of Other Anti-infective into Peripheral Vein, Percutaneous Approach (ICD-10-PCS; 2021-09-26)
PROC: 8E0ZXY6 Isolation (ICD-10-PCS; principal; 2021-10-02)
DX: A41.81 Sepsis due to Enterococcus (principal); G93.41 Metabolic encephalopathy; U07.1 COVID-19; N39.0 Urinary tract infection, site not specified; I48.20 Chronic atrial fibrillation, unspecified; N17.9 Acute kidney failure, unspecified; I48.92 Unspecified atrial flutter; G45.9 Transient cerebral ischemic attack, unspecified; A04.72 Enterocolitis due to Clostridium difficile, not specified as recurrent; R65.20 Severe sepsis without septic shock; E03.9 Hypothyroidism, unspecified; H40.9 Unspecified glaucoma; K21.9 Gastro-esophageal reflux disease without esophagitis; T79.6XXA Traumatic ischemia of muscle, initial encounter; N18.2 Chronic kidney disease, stage 2 (mild); E11.22 Type 2 diabetes mellitus with diabetic chronic kidney disease; R53.81 Other malaise; E87.6 Hypokalemia; E86.0 Dehydration; I12.9 Hypertensive chronic kidney disease with stage 1 through stage 4 chronic kidney disease, or unspecified chronic kidney disease; E66.9 Obesity, unspecified; G47.33 Obstructive sleep apnea (adult) (pediatric); I25.10 Atherosclerotic heart disease of native coronary artery without angina pectoris; A40.8 Other streptococcal sepsis; E11.51 Type 2 diabetes mellitus with diabetic peripheral angiopathy without gangrene; E78.5 Hyperlipidemia, unspecified; Z96.1 Presence of intraocular lens; Z60.2 Problems related to living alone; Z68.28 Body mass index [BMI] 28.0-28.9, adult; Z95.818 Presence of other cardiac implants and grafts; Z88.8 Allergy status to other drugs, medicaments and biological substances; Z88.5 Allergy status to narcotic agent; Z79.890 Hormone replacement therapy; Z79.01 Long term (current) use of anticoagulants; Z83.3 Family history of diabetes mellitus; Z82.49 Family history of ischemic heart disease and other diseases of the circulatory system; Z85.3 Personal history of malignant neoplasm of breast; Z98.51 Tubal ligation status; Z98.890 Other specified postprocedural states; Z90.11 Acquired absence of right breast and nipple; Z98.42 Cataract extraction status, left eye; Z98.41 Cataract extraction status, right eye; Z79.899 Other long term (current) drug therapy; Z79.84 Long term (current) use of oral hypoglycemic drugs; Z79.82 Long term (current) use of aspirin; Z88.6 Allergy status to analgesic agent
CPT/HCPCS: 36415; 36416; 36600; 51701; 70450; 70496; 70498; 70551; 71045; 72125; 72170; 80048; 80053; 81001; 81003; 81015; 82550; 82805; 83605; 83735; 84484; 85025; 85379; 85610; 85730; 86140; 87040; 87077; 87086; 87324; 87449; 87493; 93005; 93306; 96374; J0696; J1650; J1815; J3475; J3490; J7050; J7120; Q9967; S0028; U0003; U0005

== ENCOUNTER 2021-12-25 08:56 | Day surgery (SDC) | payer MEDICARE ==
[~2021-12-25 08:56] MED LIST changes: +Acetaminophen 500 MG TAB PO SCH; -Diazepam 5 MG TAB ONE; -Iopamidol 370 76% 100 ML VIAL ONE; -Lidocaine 1% (PF) 30 ML VIAL ONE; +diphenhydrAMINE 25 MG CAP PO SCH; -traMADol HCl 50 MG TAB ONE
[2021-12-25] MEDS ORDERED: Acetaminophen 500 MG TAB ONE (09:42)
[2021-12-25] MEDS ORDERED: diphenhydrAMINE 25 MG CAP ONE (09:42)
[2021-12-25 14:05] VITALS: BP 155/72; TEMP 98.2
== END 2021-12-25 14:06 ==
LOC: ONC/OP 08:56
PROVIDERS: ATTEND Internal Medicine Hematology & Oncology
PROC: 30233N1 Transfusion of Nonautologous Red Blood Cells into Peripheral Vein, Percutaneous Approach (ICD-10-PCS; principal; 2021-12-25)
DX: D64.9 Anemia, unspecified (principal); D69.6 Thrombocytopenia, unspecified; Z88.1 Allergy status to other antibiotic agents; Z88.5 Allergy status to narcotic agent
CPT/HCPCS: 36430; 86850; 86900; 86901; P9016

== ENCOUNTER 2022-05-03 10:48 | Emergency (ER) | payer MEDICARE ==
[2022-05-03 11:49] LABS: #Eosinphils 0.1 thou/uL (0.0-0.7); #Lymphocytes 1.2 thou/uL (1.20-3.40); #Monocytes 0.5 thou/uL (0.11-0.59); %Basophils 0.3 % (0.0-1.0); %Eosinophils 1.7 % (0.0-10.0); %Lymphocytes 21.1 % (21.0-51.0); %Monocytes 8.6 % (0.0-10.0); %Neutrophils 68.3 % (42.0-75.0); Hemoglobin 6.4 g/dL (12.0-16.0); Mean Corpuscular HGB CONC 32.1 g/dL (32.0-36.0); Mean Corpuscular Hemoglobin 26.3 pg (27.0-31.0); Mean Corpuscular Volume 82.1 fl (78.0-98.0); Mean Platelet Volume 8.2 fL (7.4-10.4); Platelet Count 234 10x3/uL (130-400); RBC Distribution Width 17.7 % (11.5-14.5); Red Blood Cell (RBC) Count 2.42 mill/uL (4.20-5.40); White Blood Cell (WBC) Count 5.8 10x3/uL (4.8-10.8)
[2022-05-03 12:03] LABS: ALT (SGPT) 12 U/L (8-55); AST (SGOT) 18 U/L (5-34); Albumin 3.7 g/dL (3.4-4.8); Alkaline Phosphatase 74 U/L (40-110); Anion Gap 13 mmol/L (10-20); BUN (Urea Nitrogen) 17 mg/dL (9.8-20.1); Bilirubin, Total 0.3 mg/dL (0.2-1.2); Calc. Creatinine Clearance 0 mL/min (70-130); Calcium 8.4 mg/dL (7.8-10.44); Carbon Dioxide 24 mmol/L (23-31); Chloride 100 mmol/L (98-107); Estimated GFR 67; Globulin 3.3 g/dL (2.4-3.5); Glucose 274 mg/dL (83-110); Iron 22 ug/dL (50-170); Iron Binding Capacity, Total 414 mcg/dL (265-497); Sodium 133 mmol/L (136-145)
[2022-05-03 12:23] LABS: INR-International Normal Ratio 1.1; PTT 25.7 sec (22.9-36.1); Prothrombin Time 14.1 sec (12.0-14.7)
== END 2022-05-03 15:48 | disposition home or self-care (01) ==
LOC: ERS 10:48
DX: D50.9 Iron deficiency anemia, unspecified (principal); E03.9 Hypothyroidism, unspecified; E11.9 Type 2 diabetes mellitus without complications; I10 Essential (primary) hypertension
CPT/HCPCS: 36430; 71045; 80053; 82728; 83540; 83550; 84484; 85025; 85610; 85730; 86850; 86900; 86901; 86920; 93005; 99283; P9016; 36415

== ENCOUNTER 2022-05-16 09:15 | Day surgery (SDC) | payer MEDICARE ==
[2022-05-16] MEDS ORDERED: Acetaminophen 325 MG TAB PO SCH (09:30)
[2022-05-16] MEDS ORDERED: Acetaminophen 325 MG TAB ONE ×2 (10:59→11:00)
[2022-05-16 16:07] VITALS: BP 169/70; TEMP 97.9
[2022-05-16] MEDS ORDERED: FLU VACC QS2022-23(65YR UP)/PF 240 MCG/0.7 ML SYRINGE IM ONE (18:00)
== END 2022-05-16 16:07 | disposition home or self-care (01) ==
LOC: ONC/OP 09:15
PROVIDERS: ATTEND Physician Assistant Medical
PROC: 30233N1 Transfusion of Nonautologous Red Blood Cells into Peripheral Vein, Percutaneous Approach (ICD-10-PCS; principal; 2022-05-16)
DX: D50.9 Iron deficiency anemia, unspecified (principal); Z88.1 Allergy status to other antibiotic agents; Z88.5 Allergy status to narcotic agent
CPT/HCPCS: 36430; 86850; 86900; 86901; P9016

== ENCOUNTER 2022-05-23 06:24 | Day surgery (SDC) | payer MEDICARE ==
[2022-05-21 14:46] VITALS: BMI 28.6
[2022-05-23 08:32] LABS: Hemoglobin 8.7 g/dL (12.0-16.0)
== END 2022-05-23 10:23 | disposition home or self-care (01) ==
LOC: SDC 06:24
PROVIDERS: ATTEND Internal Medicine Gastroenterology
PROC: 0W3P8ZZ Control Bleeding in Gastrointestinal Tract, Via Natural or Artificial Opening Endoscopic (ICD-10-PCS; principal; 2022-05-23)
PROC: 0DBK8ZX Excision of Ascending Colon, Via Natural or Artificial Opening Endoscopic, Diagnostic (ICD-10-PCS; 2022-05-23)
DX: D50.9 Iron deficiency anemia, unspecified (principal); K31.819 Angiodysplasia of stomach and duodenum without bleeding; K43.2 Incisional hernia without obstruction or gangrene; D12.2 Benign neoplasm of ascending colon; Q43.8 Other specified congenital malformations of intestine; G47.30 Sleep apnea, unspecified; E11.9 Type 2 diabetes mellitus without complications; Z86.010 Personal history of colon polyps; Z88.1 Allergy status to other antibiotic agents; Z88.5 Allergy status to narcotic agent; Z79.84 Long term (current) use of oral hypoglycemic drugs; Z79.890 Hormone replacement therapy; Z79.82 Long term (current) use of aspirin; Z79.899 Other long term (current) drug therapy
CPT/HCPCS: 36415; 85014; 85018; 88305

== ENCOUNTER 2022-12-31 13:27 | Inpatient (IN) | payer MEDICARE ==
[2022-12-31] MEDS ORDERED: Meclizine HCl 25 MG TAB ONE (14:25)
[2022-12-31 14:39] LABS: #Eosinphils 0.1 thou/uL (0.0-0.7); #Monocytes 0.5 thou/uL (0.11-0.59); #Neutrophils 4.8 thou/uL (1.40-6.50); %Basophils 0.6 % (0.0-1.0); %Eosinophils 1.6 % (0.0-10.0); %Lymphocytes 18.4 % (21.0-51.0); %Monocytes 7.8 % (0.0-10.0); %Neutrophils 71.2 % (42.0-75.0); Hematocrit 26.7 % (36.0-47.0); Hemoglobin 7.2 g/dL (12.0-16.0); Mean Corpuscular Hemoglobin 21.8 pg (27.0-31.0); Mean Corpuscular Volume 80.9 fl (78.0-98.0); Mean Platelet Volume 10.3 fL (7.4-10.4); Platelet Count 320 10x3/uL (130-400); RBC Distribution Width 17.9 % (11.5-14.5); White Blood Cell (WBC) Count 6.7 10x3/uL (4.8-10.8)
[2022-12-31 15:04] LABS: ALT (SGPT) 9 U/L (8-55); AST (SGOT) 15 U/L (5-34); Albumin 4.2 g/dL (3.4-4.8); Alkaline Phosphatase 65 U/L (40-110); Anion Gap 15 mmol/L (10-20); BUN (Urea Nitrogen) 13 mg/dL (9.8-20.1); Bilirubin, Total 0.3 mg/dL (0.2-1.2); Calc. Creatinine Clearance 0 mL/min (70-130); Calcium 8.7 mg/dL (7.8-10.44); Carbon Dioxide 26 mmol/L (23-31); Chloride 99 mmol/L (98-107); Estimated GFR 68; Glucose 88 mg/dL (83-110); Potassium 4.3 mmol/L (3.5-5.1); Protein, Total 7.2 g/dL (5.8-8.1); Sodium 136 mmol/L (136-145)
[2022-12-31 15:07] LABS: Troponin I 0.018 ng/mL (< 0.028)
[2022-12-31 15:09] LABS: Anisocytosis SLIGHT = 6-15 cells HPF (0-5); CellaVision Operator ID LAB.KB; Hypochromia SLIGHT = 6-15 cells HPF (0-5); Ovalocytes SLIGHT = 2-5 cells HPF (0-1); Platelet Adequacy Comment Platelets Normal; Polychromasia SLIGHT = 2-3 cells HPF (0-2)
[2022-12-31] MEDS ORDERED: Ondansetron PF 4 MG/2 ML Vial IVP PRN (17:20)
[2022-12-31] MEDS ORDERED: Ondansetron ODT 4 MG TAB PO PRN (17:20)
[2022-12-31] MEDS ORDERED: Aspirin 81 mg Enteric Coated Tablet PO SCH (17:45)
[2022-12-31] MEDS ORDERED: HumaLOG 300 UNITS/3 ML VIAL SC PRN (18:21)
[2022-12-31] MEDS ORDERED: Dextrose 5% in Water 1,000 ML IV PRN (18:21)
[2022-12-31] MEDS ORDERED: Glucagon 1 MG/ML KIT IM PRN (18:21)
[2022-12-31] MEDS ORDERED: Dextrose 50% Abboject 50 ML SYRINGE SLOW IVP PRN (18:21)
[2022-12-31 19:22] VITALS: BMI 33.8
[2022-12-31 20:56] LABS: Bacteria/HPF 3+ HPF (None Seen); Bilirubin Negative (Negative); Blood, Urine Negative (Negative); CAUTI Indications for Culture Alt mental st,lethar; Clarity Turbid (Clear); Glucose, Urine (Dipstick) Normal (Negative); Ketone, Urine Negative (Negative); Leukocyte 500 Leu/uL (Negative); Nitrite 1+ (Negative); Protein, Urine (Dipstick) 10 mg/dL (Neg-Trace); RBC/HPF 0-3 HPF (0-3); Specific Gravity, Urine 1.009 (1.002-1.036); Squamous Epithelial 0-3 HPF (0-3); Urobilinogen Normal mg/dL (Less than 2); WBC/HPF Greater than 50 HPF (0-3)
[2022-12-31 20:58] LABS: Urine Culture Reflex Yes Yes
[2022-12-31] MEDS ORDERED: Famotidine 20 MG TAB PO SCH (21:00)
[2022-12-31] MEDS: Heparin 5,000 UNITS/ML VIAL SC SCH (21:11)
[2022-12-31] MEDS: metFORMIN 500 MG TAB PO SCH (21:11)
[2022-12-31] MEDS: Gabapentin 300 MG CAP PO SCH (21:11)
[2022-12-31 23:04] LABS: Troponin I Less than 0.010 ng/mL (< 0.028)
[2023-01-01 02:10] LABS: Troponin I Less than 0.010 ng/mL (< 0.028)
[2023-01-01 04:50] LABS: #Basophils 0.1 thou/uL (0.0-0.2); #Eosinphils 0.1 thou/uL (0.0-0.7); #Monocytes 0.7 thou/uL (0.11-0.59); %Basophils 0.8 % (0.0-1.0); %Lymphocytes 20.8 % (21.0-51.0); %Monocytes 8.4 % (0.0-10.0); %Neutrophils 68.5 % (42.0-75.0); Hematocrit 27.4 % (36.0-47.0); Hemoglobin 7.7 g/dL (12.0-16.0); Mean Corpuscular HGB CONC 28.1 g/dL (32.0-36.0); Mean Corpuscular Hemoglobin 22.3 pg (27.0-31.0); Mean Corpuscular Volume 79.4 fl (78.0-98.0); Mean Platelet Volume 10.5 fL (7.4-10.4); Platelet Count 333 10x3/uL (130-400); Red Blood Cell (RBC) Count 3.45 mill/uL (4.20-5.40); White Blood Cell (WBC) Count 8.7 10x3/uL (4.8-10.8)
[2023-01-01 04:58] LABS: Hemoglobin A1c 7.6 % (4.0-6.0)
[2023-01-01 05:18] LABS: Anion Gap 14 mmol/L (10-20); BUN (Urea Nitrogen) 14 mg/dL (9.8-20.1); Calc. Creatinine Clearance 71 mL/min (70-130); Calcium 8.8 mg/dL (7.8-10.44); Carbon Dioxide 27 mmol/L (23-31); Cardiac Risk 4.2 (Less than 4.5); Chloride 98 mmol/L (98-107); Cholesterol 183 mg/dl (< 200 Desired); Estimated GFR 61; Glucose 173 mg/dL (83-110); HDL Cholesterol 44 mg/dL (>60 Neg Risk); LDL Cholesterol, Calculated 104 mg/dL; Potassium 4.1 mmol/L (3.5-5.1); Sodium 135 mmol/L (136-145); Triglycerides 176 mg/dL (Less than 150)
[2023-01-01] MEDS: Gabapentin 300 MG CAP PO SCH ×3 (05:45→20:27)
[2023-01-01] MEDS: Levothyroxine Sodium 125 MCG TAB PO SCH (05:45)
[2023-01-01] MEDS ORDERED: Aspirin 81 mg Enteric Coated Tablet PO SCH (09:00)
[2023-01-01] MEDS: Heparin 5,000 UNITS/ML VIAL SC SCH ×2 (09:28→20:29)
[2023-01-01] MEDS: Ezetimibe 10 MG TAB PO SCH (09:28)
[2023-01-01] MEDS: Multivit, Therapeutic 1 TAB PO SCH (09:28)
[2023-01-01] MEDS: Aspirin 81 mg Enteric Coated Tablet PO SCH (09:28)
[2023-01-01] MEDS: Escitalopram Oxalate 10 mg Tablet PO SCH (09:28)
[2023-01-01] MEDS ORDERED: Iron Sucrose Complex 200 MG in Sodium Chloride 0.9% 100 ML IVPB SCH (09:45)
[2023-01-01] MEDS ORDERED: Iron, Sodium Ferric Gluconate 250 MG in Sodium Chloride 0.9% 250 ML 250 ML IVPB SCH (10:00)
[2023-01-01] MEDS: Acetaminophen 325 MG TAB PO PRN (13:50)
[2023-01-01] MEDS: HumaLOG 300 UNITS/3 ML VIAL SC PRN (16:06)
[2023-01-01] MEDS: metFORMIN 500 MG TAB PO SCH (20:27)
[2023-01-01] MEDS ORDERED: cefTRIAXone\\ROCEPHIN 2 GM in Sodium Chloride 0.9% 100 ML IVPB SCH (23:30)
[2023-01-02] MEDS: Gabapentin 300 MG CAP PO SCH ×3 (06:39→21:02)
[2023-01-02] MEDS: Levothyroxine Sodium 125 MCG TAB PO SCH (06:39)
[2023-01-02] MEDS: Aspirin 81 mg Enteric Coated Tablet PO SCH (10:21)
[2023-01-02] MEDS: Heparin 5,000 UNITS/ML VIAL SC SCH ×2 (10:21→21:03)
[2023-01-02] MEDS: Multivit, Therapeutic 1 TAB PO SCH (10:21)
[2023-01-02] MEDS: Escitalopram Oxalate 10 mg Tablet PO SCH (10:21)
[2023-01-02] MEDS: Ezetimibe 10 MG TAB PO SCH (10:21)
[2023-01-02] MEDS ORDERED: Digoxin 0.5 MG/2 ML AMP ONE (10:37)
[2023-01-02 11:28] LABS: #Basophils 0.1 thou/uL (0.0-0.2); #Eosinphils 0.1 thou/uL (0.0-0.7); #Monocytes 0.7 thou/uL (0.11-0.59); #Neutrophils 11.8 thou/uL (1.40-6.50); %Basophils 0.4 % (0.0-1.0); %Eosinophils 0.7 % (0.0-10.0); %Lymphocytes 5.1 % (21.0-51.0); %Monocytes 5.5 % (0.0-10.0); %Neutrophils 87.8 % (42.0-75.0); Hematocrit 25.8 % (36.0-47.0); Hemoglobin 7.1 g/dL (12.0-16.0); Mean Corpuscular HGB CONC 27.5 g/dL (32.0-36.0); Mean Corpuscular Volume 80.1 fl (78.0-98.0); Platelet Count 265 10x3/uL (130-400); Red Blood Cell (RBC) Count 3.22 mill/uL (4.20-5.40); White Blood Cell (WBC) Count 13.5 10x3/uL (4.8-10.8)
[2023-01-02 11:51] LABS: Anion Gap 15 mmol/L (10-20); BUN (Urea Nitrogen) 11 mg/dL (9.8-20.1); Calc. Creatinine Clearance 74 mL/min (70-130); Calcium 8.3 mg/dL (7.8-10.44); Carbon Dioxide 25 mmol/L (23-31); Chloride 100 mmol/L (98-107); Estimated GFR 69; Glucose 173 mg/dL (83-110); Potassium 3.9 mmol/L (3.5-5.1); Sodium 136 mmol/L (136-145)
[2023-01-02 12:18] LABS: Anisocytosis SLIGHT = 6-15 cells HPF (0-5); CellaVision Operator ID LAB.MJL; Elliptocytes SLIGHT = 2-5 cells HPF (0-1); Hypochromia SLIGHT = 6-15 cells HPF (0-5); Ovalocytes SLIGHT = 2-5 cells HPF (0-1); Platelet Adequacy Comment Platelets Normal; Poikilocytosis SLIGHT = 6-15 cells HPF (0-5); Polychromasia MODERATE = 3-4 cells HPF (0-2); Target Cells SLIGHT = 2-5 cells HPF (0-1)
[2023-01-02] MEDS: Acetaminophen 325 MG TAB PO PRN (15:36)
[2023-01-02] MEDS: metFORMIN 500 MG TAB PO SCH (21:03)
[2023-01-03] MEDS: cefTRIAXone\\ROCEPHIN 1 GM in Sodium Chloride 0.9% 100 ML IVPB SCH ×2 (00:40→23:09)
[2023-01-03 04:51] LABS: #Basophils 0.1 thou/uL (0.0-0.2); #Eosinphils 0.2 thou/uL (0.0-0.7); #Monocytes 0.5 thou/uL (0.11-0.59); #Neutrophils 5.5 thou/uL (1.40-6.50); %Basophils 0.8 % (0.0-1.0); %Eosinophils 3.4 % (0.0-10.0); %Lymphocytes 10.5 % (21.0-51.0); %Monocytes 7.4 % (0.0-10.0); %Neutrophils 77.2 % (42.0-75.0); Hematocrit 25.3 % (36.0-47.0); Hemoglobin 6.8 g/dL (12.0-16.0); Mean Corpuscular HGB CONC 26.9 g/dL (32.0-36.0); Mean Corpuscular Hemoglobin 21.3 pg (27.0-31.0); Mean Corpuscular Volume 79.3 fl (78.0-98.0); Mean Platelet Volume 10.6 fL (7.4-10.4); Platelet Count 275 10x3/uL (130-400); RBC Distribution Width 18.4 % (11.5-14.5); Red Blood Cell (RBC) Count 3.19 mill/uL (4.20-5.40); White Blood Cell (WBC) Count 7.1 10x3/uL (4.8-10.8)
[2023-01-03] MEDS: Levothyroxine Sodium 125 MCG TAB PO SCH (05:05)
[2023-01-03] MEDS: Gabapentin 300 MG CAP PO SCH ×3 (05:05→21:07)
[2023-01-03 05:26] LABS: Anion Gap 15 mmol/L (10-20); BUN (Urea Nitrogen) 12 mg/dL (9.8-20.1); Calc. Creatinine Clearance 64 mL/min (70-130); Calcium 7.9 mg/dL (7.8-10.44); Carbon Dioxide 25 mmol/L (23-31); Chloride 100 mmol/L (98-107); Estimated GFR 58; Glucose 177 mg/dL (83-110); Potassium 3.8 mmol/L (3.5-5.1); Sodium 136 mmol/L (136-145)
[2023-01-03] MEDS: Ezetimibe 10 MG TAB PO SCH (09:40)
[2023-01-03] MEDS: Multivit, Therapeutic 1 TAB PO SCH (09:40)
[2023-01-03] MEDS: Escitalopram Oxalate 10 mg Tablet PO SCH (09:40)
[2023-01-03] MEDS: Aspirin 81 mg Enteric Coated Tablet PO SCH (09:40)
[2023-01-03] MEDS: Heparin 5,000 UNITS/ML VIAL SC SCH ×2 (09:40→21:07)
[2023-01-03] MEDS: metFORMIN 500 MG TAB PO SCH (21:07)
[2023-01-04 05:15] LABS: #Eosinphils 0.2 thou/uL (0.0-0.7); #Monocytes 0.7 thou/uL (0.11-0.59); #Neutrophils 5.1 thou/uL (1.40-6.50); %Basophils 0.6 % (0.0-1.0); %Eosinophils 2.7 % (0.0-10.0); %Lymphocytes 12.6 % (21.0-51.0); %Neutrophils 73.5 % (42.0-75.0); Hematocrit 27.6 % (36.0-47.0); Hemoglobin 7.8 g/dL (12.0-16.0); Mean Corpuscular HGB CONC 28.3 g/dL (32.0-36.0); Mean Corpuscular Hemoglobin 22.4 pg (27.0-31.0); Mean Corpuscular Volume 79.3 fl (78.0-98.0); Mean Platelet Volume 9.7 fL (7.4-10.4); Platelet Count 251 10x3/uL (130-400); RBC Distribution Width 17.9 % (11.5-14.5); Red Blood Cell (RBC) Count 3.48 mill/uL (4.20-5.40)
[2023-01-04 05:45] LABS: Anion Gap 16 mmol/L (10-20); BUN (Urea Nitrogen) 10 mg/dL (9.8-20.1); Calc. Creatinine Clearance 74 mL/min (70-130); Calcium 8.1 mg/dL (7.8-10.44); Carbon Dioxide 26 mmol/L (23-31); Chloride 99 mmol/L (98-107); Estimated GFR 69; Glucose 194 mg/dL (83-110); Potassium 3.8 mmol/L (3.5-5.1); Sodium 137 mmol/L (136-145)
[2023-01-04] MEDS: Gabapentin 300 MG CAP PO SCH ×3 (05:56→22:09)
[2023-01-04] MEDS: Levothyroxine Sodium 125 MCG TAB PO SCH (05:56)
[2023-01-04 06:09] LABS: Anisocytosis MODERATE=16-30 cells HPF (0-5); CellaVision Operator ID lab.sh2; Hypochromia MODERATE=16-30 cells HPF (0-5); Macrocytosis SLIGHT = 6-15 cells HPF (0-5); Ovalocytes SLIGHT = 2-5 cells HPF (0-1); Platelet Adequacy Comment Platelets Normal; Polychromasia MODERATE = 3-4 cells HPF (0-2); Stomatocytes SLIGHT = 2-5 cells HPF (0-1)
[2023-01-04] MEDS: Multivit, Therapeutic 1 TAB PO SCH (08:03)
[2023-01-04] MEDS: Aspirin 81 mg Enteric Coated Tablet PO SCH (08:03)
[2023-01-04] MEDS: Escitalopram Oxalate 10 mg Tablet PO SCH (08:03)
[2023-01-04] MEDS: Ezetimibe 10 MG TAB PO SCH (08:03)
[2023-01-04] MEDS: Heparin 5,000 UNITS/ML VIAL SC SCH ×2 (08:03→22:10)
[2023-01-04] MEDS: Acetaminophen 325 MG TAB PO PRN (13:28)
[2023-01-04] MEDS: metFORMIN 500 MG TAB PO SCH (22:10)
[2023-01-04] MEDS: cefTRIAXone\\ROCEPHIN 1 GM in Sodium Chloride 0.9% 100 ML IVPB SCH (22:12)
[2023-01-05] MEDS: Gabapentin 300 MG CAP PO SCH ×3 (05:33→20:38)
[2023-01-05] MEDS: Levothyroxine Sodium 125 MCG TAB PO SCH (05:33)
[2023-01-05 05:58] LABS: #Basophils 0.1 thou/uL (0.0-0.2); #Eosinphils 0.3 thou/uL (0.0-0.7); #Monocytes 0.6 thou/uL (0.11-0.59); #Neutrophils 3.4 thou/uL (1.40-6.50); %Basophils 1.3 % (0.0-1.0); %Eosinophils 4.8 % (0.0-10.0); %Lymphocytes 20.6 % (21.0-51.0); %Monocytes 10.8 % (0.0-10.0); %Neutrophils 61.8 % (42.0-75.0); Hematocrit 28.9 % (36.0-47.0); Hemoglobin 7.9 g/dL (12.0-16.0); Mean Corpuscular HGB CONC 27.3 g/dL (32.0-36.0); Mean Corpuscular Hemoglobin 22.3 pg (27.0-31.0); Mean Corpuscular Volume 81.4 fl (78.0-98.0); Mean Platelet Volume 9.8 fL (7.4-10.4); Platelet Count 245 10x3/uL (130-400); RBC Distribution Width 19.1 % (11.5-14.5); Red Blood Cell (RBC) Count 3.55 mill/uL (4.20-5.40); White Blood Cell (WBC) Count 5.5 10x3/uL (4.8-10.8)
[2023-01-05 06:27] LABS: Anion Gap 12 mmol/L (10-20); BUN (Urea Nitrogen) 10 mg/dL (9.8-20.1); Calc. Creatinine Clearance 78 mL/min (70-130); Calcium 8.4 mg/dL (7.8-10.44); Carbon Dioxide 30 mmol/L (23-31); Chloride 100 mmol/L (98-107); Estimated GFR 74; Glucose 181 mg/dL (83-110); Potassium 3.8 mmol/L (3.5-5.1); Sodium 138 mmol/L (136-145)
[2023-01-05] MEDS: Aspirin 81 mg Enteric Coated Tablet PO SCH (08:15)
[2023-01-05] MEDS: Escitalopram Oxalate 10 mg Tablet PO SCH (08:16)
[2023-01-05] MEDS: Multivit, Therapeutic 1 TAB PO SCH (08:16)
[2023-01-05] MEDS: Ezetimibe 10 MG TAB PO SCH (08:16)
[2023-01-05] MEDS: Heparin 5,000 UNITS/ML VIAL SC SCH ×2 (08:16→20:37)
[2023-01-05] MEDS: metFORMIN 500 MG TAB PO SCH (20:38)
[2023-01-06] MEDS: Gabapentin 300 MG CAP PO SCH ×3 (05:20→20:48)
[2023-01-06] MEDS: Levothyroxine Sodium 125 MCG TAB PO SCH (05:20)
[2023-01-06] MEDS: Aspirin 81 mg Enteric Coated Tablet PO SCH (08:10)
[2023-01-06] MEDS: Escitalopram Oxalate 10 mg Tablet PO SCH (08:10)
[2023-01-06] MEDS: Ezetimibe 10 MG TAB PO SCH (08:10)
[2023-01-06] MEDS: Heparin 5,000 UNITS/ML VIAL SC SCH ×2 (08:10→20:49)
[2023-01-06] MEDS: Multivit, Therapeutic 1 TAB PO SCH (08:10)
[2023-01-06 08:33] LABS: #Basophils 0.1 thou/uL (0.0-0.2); #Eosinphils 0.2 thou/uL (0.0-0.7); #Monocytes 0.4 thou/uL (0.11-0.59); #Neutrophils 3.2 thou/uL (1.40-6.50); %Basophils 1.2 % (0.0-1.0); %Eosinophils 3.3 % (0.0-10.0); %Lymphocytes 20.3 % (21.0-51.0); %Monocytes 9.1 % (0.0-10.0); %Neutrophils 65.7 % (42.0-75.0); Hematocrit 29.9 % (36.0-47.0); Hemoglobin 8.3 g/dL (12.0-16.0); Mean Corpuscular HGB CONC 27.8 g/dL (32.0-36.0); Mean Corpuscular Hemoglobin 23.1 pg (27.0-31.0); Mean Corpuscular Volume 83.1 fl (78.0-98.0); Mean Platelet Volume 10.3 fL (7.4-10.4); Platelet Count 268 10x3/uL (130-400); RBC Distribution Width 20.3 % (11.5-14.5); White Blood Cell (WBC) Count 4.8 10x3/uL (4.8-10.8)
[2023-01-06 08:55] LABS: Anion Gap 13 mmol/L (10-20); BUN (Urea Nitrogen) 10 mg/dL (9.8-20.1); Calc. Creatinine Clearance 74 mL/min (70-130); Calcium 8.8 mg/dL (7.8-10.44); Carbon Dioxide 30 mmol/L (23-31); Chloride 99 mmol/L (98-107); Estimated GFR 69; Glucose 171 mg/dL (83-110); Potassium 3.9 mmol/L (3.5-5.1); Sodium 138 mmol/L (136-145)
[2023-01-06 09:31] LABS: Anisocytosis SLIGHT = 6-15 cells HPF (0-5); CellaVision Operator ID lab.dlt; Hypochromia SLIGHT = 6-15 cells HPF (0-5); Macrocytosis SLIGHT = 6-15 cells HPF (0-5); Ovalocytes SLIGHT = 2-5 cells HPF (0-1); Platelet Adequacy Comment Platelets Normal; Poikilocytosis SLIGHT = 6-15 cells HPF (0-5); Polychromasia SLIGHT = 2-3 cells HPF (0-2); Stomatocytes SLIGHT = 2-5 cells HPF (0-1)
[2023-01-06] MEDS: metFORMIN 500 MG TAB PO SCH (20:49)
[2023-01-07 04:29] LABS: Hematocrit 28.8 % (36.0-47.0); Mean Corpuscular HGB CONC 27.8 g/dL (32.0-36.0); Mean Corpuscular Hemoglobin 22.7 pg (27.0-31.0); Mean Corpuscular Volume 81.8 fl (78.0-98.0); Mean Platelet Volume 10.5 fL (7.4-10.4); Platelet Count 268 10x3/uL (130-400); RBC Distribution Width 20.9 % (11.5-14.5); Red Blood Cell (RBC) Count 3.52 mill/uL (4.20-5.40); White Blood Cell (WBC) Count 6.1 10x3/uL (4.8-10.8)
[2023-01-07 04:32] LABS: Delete Auto Diff?? YES; Manual Diff?? YES
[2023-01-07 04:51] LABS: Anion Gap 14 mmol/L (10-20); BUN (Urea Nitrogen) 11 mg/dL (9.8-20.1); Calc. Creatinine Clearance 75 mL/min (70-130); Calcium 8.7 mg/dL (7.8-10.44); Carbon Dioxide 29 mmol/L (23-31); Chloride 99 mmol/L (98-107); Estimated GFR 70; Glucose 157 mg/dL (83-110); Potassium 3.7 mmol/L (3.5-5.1); Sodium 138 mmol/L (136-145)
[2023-01-07 04:58] LABS: Band 4 % (5-11); CellaVision Operator ID LAB.CLH1; Elliptocytes SLIGHT = 2-5 cells HPF (0-1); Eosinophils 4 % (0-10); Hypochromia SLIGHT = 6-15 cells HPF (0-5); Large Platelets 5.1 % (0-5); Lymphocytes 13 % (21-51); Macrocytosis SLIGHT = 6-15 cells HPF (0-5); Monocytes 7 % (0-10); Neutrophil 70 % (42-75); Platelet Adequacy Comment Platelets Normal; Polychromasia MODERATE = 3-4 cells HPF (0-2); Reactive Lymphocytes 1 % (0-10); Stomatocytes SLIGHT = 2-5 cells HPF (0-1); Total Cell Count 99
[2023-01-07] MEDS: Gabapentin 300 MG CAP PO SCH ×3 (05:35→20:44)
[2023-01-07] MEDS: Levothyroxine Sodium 125 MCG TAB PO SCH (05:35)
[2023-01-07] MEDS: Escitalopram Oxalate 10 mg Tablet PO SCH (09:22)
[2023-01-07] MEDS: Heparin 5,000 UNITS/ML VIAL SC SCH ×2 (09:22→20:45)
[2023-01-07] MEDS: Multivit, Therapeutic 1 TAB PO SCH (09:22)
[2023-01-07] MEDS: Aspirin 81 mg Enteric Coated Tablet PO SCH (09:22)
[2023-01-07] MEDS: Ezetimibe 10 MG TAB PO SCH (09:22)
[2023-01-07] MEDS: HumaLOG 300 UNITS/3 ML VIAL SC PRN ×3 (09:24→18:31)
[2023-01-07] MEDS: Acetaminophen 325 MG TAB PO PRN (10:14)
[2023-01-07] MEDS: metFORMIN 500 MG TAB PO SCH (20:44)
[2023-01-08 04:26] LABS: Hemoglobin 8.6 g/dL (12.0-16.0); Mean Corpuscular HGB CONC 27.7 g/dL (32.0-36.0); Mean Corpuscular Hemoglobin 22.8 pg (27.0-31.0); Mean Platelet Volume 9.9 fL (7.4-10.4); Platelet Count 244 10x3/uL (130-400); RBC Distribution Width 21.9 % (11.5-14.5); Red Blood Cell (RBC) Count 3.78 mill/uL (4.20-5.40); White Blood Cell (WBC) Count 7.6 10x3/uL (4.8-10.8)
[2023-01-08 04:35] LABS: Delete Auto Diff?? YES; Manual Diff?? YES
[2023-01-08 04:51] LABS: Anion Gap 14 mmol/L (10-20); BUN (Urea Nitrogen) 14 mg/dL (9.8-20.1); Calc. Creatinine Clearance 66 mL/min (70-130); Calcium 8.5 mg/dL (7.8-10.44); Carbon Dioxide 28 mmol/L (23-31); Chloride 98 mmol/L (98-107); Estimated GFR 61; Glucose 161 mg/dL (83-110); Potassium 3.7 mmol/L (3.5-5.1); Sodium 136 mmol/L (136-145)
[2023-01-08 05:20] LABS: Anisocytosis MODERATE=16-30 cells HPF (0-5); CellaVision Operator ID lab.sh2; Eosinophils 3 % (0-10); Hypochromia SLIGHT = 6-15 cells HPF (0-5); Lymphocytes 11 % (21-51); Macrocytosis SLIGHT = 6-15 cells HPF (0-5); Monocytes 2 % (0-10); Neutrophil 79 % (42-75); Ovalocytes SLIGHT = 2-5 cells HPF (0-1); Platelet Adequacy Comment Platelets Normal; Polychromasia MODERATE = 3-4 cells HPF (0-2); Reactive Lymphocytes 3 % (0-10); Total Cell Count 100
[2023-01-08] MEDS: Gabapentin 300 MG CAP PO SCH ×3 (05:54→21:32)
[2023-01-08] MEDS: Levothyroxine Sodium 125 MCG TAB PO SCH (05:54)
[2023-01-08] MEDS: HumaLOG 300 UNITS/3 ML VIAL SC PRN ×2 (05:55→17:04)
[2023-01-08] MEDS: Aspirin 81 mg Enteric Coated Tablet PO SCH (09:30)
[2023-01-08] MEDS: Escitalopram Oxalate 10 mg Tablet PO SCH (09:30)
[2023-01-08] MEDS: Multivit, Therapeutic 1 TAB PO SCH (09:30)
[2023-01-08] MEDS: Ezetimibe 10 MG TAB PO SCH (09:31)
[2023-01-08] MEDS: Heparin 5,000 UNITS/ML VIAL SC SCH ×2 (09:31→20:29)
[2023-01-08] MEDS: metFORMIN 500 MG TAB PO SCH (20:29)
[2023-01-09 04:33] LABS: #Basophils 0.1 thou/uL (0.0-0.2); #Eosinphils 0.2 thou/uL (0.0-0.7); #Monocytes 0.5 thou/uL (0.11-0.59); #Neutrophils 4.1 thou/uL (1.40-6.50); %Basophils 1.1 % (0.0-1.0); %Eosinophils 2.7 % (0.0-10.0); %Lymphocytes 24.9 % (21.0-51.0); %Monocytes 8.2 % (0.0-10.0); %Neutrophils 62.5 % (42.0-75.0); Hematocrit 30.5 % (36.0-47.0); Hemoglobin 8.5 g/dL (12.0-16.0); Mean Corpuscular HGB CONC 27.9 g/dL (32.0-36.0); Mean Corpuscular Volume 82.4 fl (78.0-98.0); Mean Platelet Volume 10.5 fL (7.4-10.4); Platelet Count 253 10x3/uL (130-400); RBC Distribution Width 22.2 % (11.5-14.5); White Blood Cell (WBC) Count 6.6 10x3/uL (4.8-10.8)
[2023-01-09] MEDS: Levothyroxine Sodium 125 MCG TAB PO SCH (05:12)
[2023-01-09] MEDS: Gabapentin 300 MG CAP PO SCH ×3 (05:12→20:54)
[2023-01-09 05:17] LABS: Anion Gap 17 mmol/L (10-20); BUN (Urea Nitrogen) 13 mg/dL (9.8-20.1); Calc. Creatinine Clearance 74 mL/min (70-130); Calcium 8.5 mg/dL (7.8-10.44); Carbon Dioxide 25 mmol/L (23-31); Chloride 100 mmol/L (98-107); Estimated GFR 68; Glucose 175 mg/dL (83-110); Potassium 3.9 mmol/L (3.5-5.1); Sodium 138 mmol/L (136-145)
[2023-01-09] MEDS: Heparin 5,000 UNITS/ML VIAL SC SCH ×2 (08:49→20:55)
[2023-01-09] MEDS ORDERED: PROPOFOL 200 MG/20 ML VIAL ONE (13:27)
[2023-01-09] MEDS: Escitalopram Oxalate 10 mg Tablet PO SCH (15:27)
[2023-01-09] MEDS: Aspirin 81 mg Enteric Coated Tablet PO SCH (15:27)
[2023-01-09] MEDS: Ezetimibe 10 MG TAB PO SCH (15:27)
[2023-01-09] MEDS: Multivit, Therapeutic 1 TAB PO SCH (15:27)
[2023-01-09] MEDS: metFORMIN 500 MG TAB PO SCH (20:54)
[2023-01-10] MEDS: Levothyroxine Sodium 125 MCG TAB PO SCH (05:53)
[2023-01-10] MEDS: Gabapentin 300 MG CAP PO SCH ×3 (05:53→20:54)
[2023-01-10] MEDS: Aspirin 81 mg Enteric Coated Tablet PO SCH (09:42)
[2023-01-10] MEDS: Ezetimibe 10 MG TAB PO SCH (09:42)
[2023-01-10] MEDS: Multivit, Therapeutic 1 TAB PO SCH (09:42)
[2023-01-10] MEDS: Heparin 5,000 UNITS/ML VIAL SC SCH ×2 (09:43→20:54)
[2023-01-10] MEDS: Escitalopram Oxalate 10 mg Tablet PO SCH (09:43)
[2023-01-10] MEDS: metFORMIN 500 MG TAB PO SCH (20:54)
[2023-01-11] MEDS: Gabapentin 300 MG CAP PO SCH ×2 (06:27→16:05)
[2023-01-11] MEDS: Levothyroxine Sodium 125 MCG TAB PO SCH (06:27)
[2023-01-11] MEDS: HumaLOG 300 UNITS/3 ML VIAL SC PRN (06:29)
[2023-01-11] MEDS: Heparin 5,000 UNITS/ML VIAL SC SCH (10:28)
[2023-01-11] MEDS: Multivit, Therapeutic 1 TAB PO SCH (10:28)
[2023-01-11] MEDS: Aspirin 81 mg Enteric Coated Tablet PO SCH (10:28)
[2023-01-11] MEDS: Escitalopram Oxalate 10 mg Tablet PO SCH (10:29)
[2023-01-11] MEDS: Ezetimibe 10 MG TAB PO SCH (10:29)
[2023-01-11 15:54] VITALS: BP 153/71; TEMP 97.6
== END 2023-01-11 18:45 | disposition home health service (06) | DRG 308 ==
LOC: ERS 13:27 → ERHOLD 15:25 → 2NO 19:19 → OBSVTOIN 01-02 08:35
PROVIDERS: ADMIT Hospitalist; ATTEND Internal Medicine
PROC: 30233N1 Transfusion of Nonautologous Red Blood Cells into Peripheral Vein, Percutaneous Approach (ICD-10-PCS; principal; 2023-01-03)
PROC: 5A2204Z Restoration of Cardiac Rhythm, Single (ICD-10-PCS; 2023-01-09)
PROC: 0T9B70Z Drainage of Bladder with Drainage Device, Via Natural or Artificial Opening (ICD-10-PCS; 2023-01-11)
DX: I48.0 Paroxysmal atrial fibrillation (principal); G93.41 Metabolic encephalopathy; E87.1 Hypo-osmolality and hyponatremia; I13.0 Hypertensive heart and chronic kidney disease with heart failure and stage 1 through stage 4 chronic kidney disease, or unspecified chronic kidney disease; N39.0 Urinary tract infection, site not specified; E87.70 Fluid overload, unspecified; Z66 Do not resuscitate; N18.2 Chronic kidney disease, stage 2 (mild); I50.9 Heart failure, unspecified; E11.22 Type 2 diabetes mellitus with diabetic chronic kidney disease; E03.9 Hypothyroidism, unspecified; K21.9 Gastro-esophageal reflux disease without esophagitis; D63.1 Anemia in chronic kidney disease; E66.9 Obesity, unspecified; B96.1 Klebsiella pneumoniae [K. pneumoniae] as the cause of diseases classified elsewhere; E78.1 Pure hyperglyceridemia; R33.9 Retention of urine, unspecified; W18.30XA Fall on same level, unspecified, initial encounter; Z88.5 Allergy status to narcotic agent; Z88.8 Allergy status to other drugs, medicaments and biological substances; Z79.890 Hormone replacement therapy; Z79.899 Other long term (current) drug therapy; Z79.82 Long term (current) use of aspirin; Z79.84 Long term (current) use of oral hypoglycemic drugs; Z95.818 Presence of other cardiac implants and grafts; Z68.31 Body mass index [BMI] 31.0-31.9, adult; Z98.51 Tubal ligation status; Z90.11 Acquired absence of right breast and nipple; Z98.890 Other specified postprocedural states; Z98.41 Cataract extraction status, right eye; Z98.42 Cataract extraction status, left eye; Z82.49 Family history of ischemic heart disease and other diseases of the circulatory system; Z83.3 Family history of diabetes mellitus
CPT/HCPCS: 36415; 36416; 36430; 51701; 70450; 70551; 71045; 72050; 80048; 80053; 80061; 81001; 83036; 83880; 84443; 84484; 85025; 86850; 86900; 86901; 87077; 87086; 87186; 92960; 93005; 93010; 93306; 93880; 96360; 96361; 96372; 96374; 96375; G0378; J0696; J1160; J1644; J1815; J2704; J2916; J3490; J7050; P9016

== ENCOUNTER 2023-03-26 12:45 | Outpatient (CLI) | payer MEDICARE ==
[2023-03-26] MEDS ORDERED: E-Z-HD 98% W/W 340GM BOT (x-ray ONLY) ONE (12:58)
[2023-03-26] MEDS ORDERED: Barium Sulfate 96% 176 GM BOT (xray ONLY) PO ONE (12:58)
== END 2023-03-26 12:46 | disposition home or self-care (01) ==
LOC: RAD 12:45
PROVIDERS: ATTEND Physician Assistant Medical
DX: R13.10 Dysphagia, unspecified (principal); D50.9 Iron deficiency anemia, unspecified; K22.89 Other specified disease of esophagus
CPT/HCPCS: 74220